=== PATIENT | female | born 1965 | race Caucasian/White ===

== ENCOUNTER 2017-12-14 12:53 | Emergency (ER) | payer MEDICAID, SELFPAY ==
[2017-12-14 12:53] VITALS: BP 160/95; PULSE 61; RESP 18; TEMP 36.6; O2SAT 100; BMI 36.8
[2017-12-14] MEDS: DiphenhydrAMINE 50 MG/ML Syringe 25 MG IV (13:58)
[2017-12-14] MEDS: Ketorolac 30 MG/ML Syringe IV (13:58)
[2017-12-14] MEDS: Metoclopramide 10 MG/2 ML Vial IV (13:58)
--- NOTE | 2017-12-14 14:56 | ED.VISSUMM ---
- ER Visit Summary Date of Service: 12/14/17 Chief Complaint: Unilateral headache intermittently for the past 4 months. Today she presents because of left eye visual disturbance. History of Present Illness: The patient is a 51 F who has history of hypertension, hypothyroidism and migraine headaches. She states this headache is been recurrent over the past 4 months. Today she presents because of blurred vision left eye associated with photophobia, sonophobia and left sided throbbing discomfort. She denies any paresthesia, anesthesia or motor weakness. She does complain of nausea without vomiting. She has no other complaints please read written note Physical Examination: Patient appears uncomfortable. Blood pressure is elevated 160/95. Head is atraumatic normocephalic. Pupils are equal round reactive. Extraocular muscles are intact. TMs are pearly white with landmarks noted. Nares patent with no drainage. Posterior pharynx without erythema or exudate. Uvula is midline. There is no dysphonia or dysphasia. Trachea is midline. There is no stridor with auscultation of the neck. Funduscopic exam reveals normal cup-to-disc ratio. There is no papilledema. Heart is regular without murmur, gallop or rub. S1 and S2 are normal. Lungs are clear to auscultation with good movement of air bilaterally. Abdomen is soft nontender. Patient is alert and oriented ?3. Motor is 5 over 5. Sensory is intact. DTRs are symmetric with no clonus or Babinski sign. Cranial 2 through 12 are intact. Cerebellar testing is normal. Test Results: None Emergency Department Course and Treatment: IV was established and she was treated with 25 mg of Benadryl IV push, 30 mg of Toradol IV push followed by 25 mg of Benadryl IV push. I was informed by her nurse at 1451 and that her headache is 95% improved. Her vision has normalized and she would like to go home. Treatment Plan: Follow-up with her primary care physician Dr. Torres. Disposition: Discharged home in stable and improved condition Impression: Intractable migraine with ocular migraine This note was generated with [employer] software. It may contain incorrect words, spelling, and punctuation that were not noted in review of the chart prior to signing ED Disposition - Plan for ED Patient: Disposition: Home or Assisted Living Chief Complaint: Headache Instructions: ED Headache Migraine Referrals: Kai Torres, [Primary Care Provider] - 3-5 Days if not improving
[2017-12-14 15:02] VITALS: BP 145/85
== END 2017-12-14 15:04 | disposition home or self-care (01) ==
PROVIDERS: Emergency Provider Emergency Medicine; Family Provider Student in an Organized Health Care Education/Training Program; PCP Student in an Organized Health Care Education/Training Program
DX: G43.819 Other migraine, intractable, without status migrainosus (principal); E66.9 Obesity, unspecified; I10 Essential (primary) hypertension; Z72.0 Tobacco use; E03.9 Hypothyroidism, unspecified
CPT/HCPCS: 99283; J7030

== ENCOUNTER 2020-04-27 03:18 | Emergency (ER) | payer MEDICAID, SELFPAY ==
[2020-04-27 03:18] VITALS: BP 195/110; PULSE 70; RESP 18; TEMP 36.9; O2SAT 100; BMI 32.1
--- NOTE | 2020-04-27 03:29 | ED.DCSUM_ITS ---
History of Present Illness Chief Complaint: Flank Pain Informant: Patient Narrative: Patient stated approximately 4 hours ago she developed acute onset of left lower back flank pain. Is a sharp stabbing pain. Somewhat movement related. No blood in her urine. No history of kidney stones. Waxes and wanes. Associated nausea. Tried ibuprofen with minimal relief. Does have history of chronic back pain but this appears worse than normal and not in this area. Denies . No injury. Past Medical History - Allergies and Home Meds Allergies/Adverse Reactions: Allergies cortisone Adverse Reaction (Verified 04/27/20 03:24) Unknown Primary Care Physician: Kai Torres DO [Primary Care Provider] - Prior records reviewed: Yes Past Medical History: - - Reviewed Surgical History: - - Reviewed Smoking Status: Never smoker Alcohol: None Drugs: None Review of Systems General: Denies: Chills, Fever, Sweats Eyes: Denies: Visual changes - bilaterally, Diplopia ENT: Denies: Rhinorrhea, Sore throat Cardiovascular: Denies: Chest pain, Palpitations Respiratory: Denies: Dyspnea, Cough, Dyspnea on exertion Gastrointestinal: Denies: Abdominal pain, Nausea, Vomiting, Diarrhea, Melena, Hematochezia Genitourinary: Denies: Dysuria, Hematuria, Frequency Musculoskeletal: Reports: Back pain. Denies: Extremity Pain Skin: Denies: Rash, Wounds Neurological: Denies: Headache, Weakness, Numbness Physical Exam Vital Signs/Narrative: Vital Signs Temp Pulse Resp BP Pulse Ox 04/27/20 03:18 98.5 F 70 18 195/110 H 100 General: Well nourished, Well developed, No Acute Distress Head: Normocephalic, Atraumatic Eyes: Perrl, EOMI ENT: Moist mucous membranes, No rhinorrhea Neck: Supple, Nontender Cardiovascular: Regular rate, Regular rhythm, No murmurs Respiratory: No distress, CTA bilaterally, Chest nontender Abdomen: Soft, Nontender, Nondistended, Normal bowel sounds Back: Nontender, Normal Inspection, - - Range of motion of the back secondary to pain left lower. No CVA tenderness.. Negative for: CVA tenderness, Spinal tenderness Extremities: Nontender, No edema Skin: Normal color, No rash Neurological: Alert, Oriented x3, Cranial nerves II-XII grossly intact, Normal Strength, Normal Sensation Psychological: Normal affect, Normal Mood Diagnostic/Tx/Re-eval - Medical Decision Making Given IV fluids morphine Toradol Zofran. Lab work and CT abdomen pelvis obtained. Lab work unremarkable including CBC BMP urinalysis. No evidence of infection. CT abdomen pelvis negative. At this time I feel the patient has musculoskeletal low back pain. She will rest and ice and use anti- inflammatories at home and follow-up as an outpatient. ED Disposition - Plan for ED Patient: Disposition: Home or Assisted Living Diagnosis: Low back pain Instructions: ED Back Pain (Acute or Chronic) Referrals: Kai Torres DO [Primary Care Provider] -
--- NOTE | 2020-04-27 03:29 | CT_ITS ---
STUDY: CT ABDOMEN AND PELVIS WITHOUT CONTRAST REASON FOR EXAM: Female, 54 years old. Left flank pain overnight. Hx cervical cancer, hysterectomy, cholecystectomy. RADIATION DOSAGE (If Supplied By Facility): CTDIvol = ( 14.23 ) mGy, DLP = ( 686.05 ) mGycm TECHNIQUE: Transaxial images were obtained from the dome of the diaphragm to the symphysis pubis without oral contrast, and without intravenous contrast. Sagittal and coronal images were reconstructed. Individualized dose optimization techniques were used for this CT. COMPARISON: None. FINDINGS: The visualized lung bases are unremarkable. The visualized portions of the heart are within normal limits. Normal liver. There are surgical clips in the gallbladder fossa consistent with a prior cholecystectomy. Normal spleen. Normal pancreas. Normal bilateral adrenal glands. Normal right kidney. Normal left kidney. Normal visualized stomach. Normal small intestine. Normal colon. There is non-visualization of the appendix. Normal abdominal aorta. Normal inferior vena cava. Normal retroperitoneum. Normal urinary bladder. Normal abdominal wall. Normal osseous structures. CT/Abdomen/Pelvis without Cont IMPRESSION: Normal unenhanced CT of the abdomen and pelvis. Electronically Signed: Denise Muñiz, at 4:37 EST Tel , Service support ,
[2020-04-27] MEDS: Ondansetron 4 MG/2 ML Vial IV (03:34)
[2020-04-27] MEDS: Morphine 4 MG/ML Syringe IV (03:34)
[2020-04-27] MEDS: Ketorolac 15 MG/ML Vial IV (03:34)
[2020-04-27] MEDS: 0.9% Normal Saline 1,000 ML 250 ML IV (03:35)
[2020-04-27 03:38] LABS: Absolute Lymphocyte Count 2.55 X10^3/uL (0.83-4.51); Absolute Neutrophil Count 4.8 X10^3/uL (2.0-7.7); Basophil# 0.06 X10^3/uL; Basophil% 0.7 % (0-1); Eosinophil# 0.36 X10^3/uL; Eosinophils% 4.1 % (0-5); Hematocrit 42.2 % (37-47); Hemoglobin 13.9 g/dL (12.0-15.0); Lymphocyte # 2.55 X10^3/ul (4.0); Lymphocyte % 29.3 % (19-41); Mean Corp Hgb Conc 32.9 g/dL (32-36); Mean Corpuscular Hgb 29.2 pg (27.0-32.0); Mean Corpuscular Volume 88.7 fL (81-99); Mean Platelet Vol. 9.7 fl (6.2-12.0); Monocyte% 10.3 % (0-10); NRBC Flagged by Analyzer 0 % (0-5); Neutrophil # 4.82 X10^3/uL (2.7-7.7); Neutrophil % 55.4 % (47-70); Platelet Count 341 K/mm3 (150-450); RBC Distribution Width CV 12.4 % (11.6-14.6); RBC Distribution Width SD 40.7 fl (35.1-43.9); Red Blood Count 4.76 M/mm3 (4.2-5.4); White Blood Count 8.7 K/mm3 (4.4-11.0)
[2020-04-27 03:48] LABS: Anion Gap 5 (5-15); BUN 16 mg/dL (7-18); BUN/Creat Ratio 17.1 RATIO (10-20); Calcium,Total 8.8 mg/dL (8.5-10.1); Chloride 106 mmol/L (98-107); Creatinine, Serum 0.93 mg/dL (0.55-1.02); EST Glomerular Filtration Rate 67 mL/min (>60); Est Glom Filt Rate - Afr Amer 81 mL/min (>60); Estimated Creatinine Clearance 52.79 ml/min; Glucose 108 mg/dL (74-106); Sodium Level 139 mmol/L (136-145)
[2020-04-27 04:31] LABS: Mucous, Urine 0 SEEN /hpf (<or=2+); Red Blood Cells-Urine 0 SEEN /hpf (0-5)
[2020-04-27 04:33] LABS: Color, Urine Yellow (Yellow); Glucose, Dipstick Normal (Normal); Ketone-Dipstick Negative (Negative); Leukocyte Esterase-Dipstick 100 /ul (Negative); Nitrite-Dipstick Negative (Negative); Occult Blood-Urine Negative /ul (Negative); Protein-Dipstick Negative (Negative); Specific Gravity, Urine 1.015 (1.002-1.030); Urine Bilirubin Dipstick Negative (Negative); Urine Clarity Clear (Clear); Urine Urobilinogen Normal (Normal)
[2020-04-27 04:40] LABS: Squamous Epithelial Cells - UA 0-5 SEEN /hpf (5-10); White Blood Cells 5-10 SEEN /hpf (0-5)
[2020-04-27 04:41] LABS: Bacteria RARE /hpf (None Seen); Hyaline Cast 0-5 SEEN /lpf (0-5)
[2020-04-27 04:53] VITALS: BP 152/78; PULSE 87; RESP 18; O2SAT 99
== END 2020-04-27 04:56 | disposition home or self-care (01) ==
PROVIDERS: Emergency Provider Emergency Medicine; PCP Student in an Organized Health Care Education/Training Program
DX: M54.5 Low back pain (principal); Z85.41 Personal history of malignant neoplasm of cervix uteri; Z90.49 Acquired absence of other specified parts of digestive tract; G89.29 Other chronic pain; R11.0 Nausea
CPT/HCPCS: 74176; 80048; 81001; 85025; 96361; 96374; 96375; 99283; J2405

== ENCOUNTER → 2020-07-13 22:05 | Emergency (ER) | payer MEDICAID, SELFPAY ==
[2020-07-13 22:06] VITALS: BP 166/103; PULSE 73; RESP 16; TEMP 36.7; O2SAT 99; BMI 32.1
--- NOTE | 2020-07-13 22:13 | ED.VIS.GEN ---
History of Present Illness Chief Complaint: Foreign Body Detail of Chief Complaint: Egg noodle causing obstruction esophagus Informant: Patient Onset: Today, Hours Context: Sudden Onset Timing: Intermittent Quality: Obstruction due to egg noodle Location: Pointed to epigastric area Current Severity: - - Resolved after vomiting 3-4 times Maximum Severity: Severe Worsened by: Inability to swallow secretions or liquids Relieved by: Vomiting Associated Symptoms: Discomfort in middle of chest Narrative: Patient is a 54-year-old woman with history of hiatal hernia. She has had an EGD and colonoscopy performed by Dr. Leonel Montoya. She states she has history of colitis. She denies fever or chills. She denies respiratory symptoms. She presently denies pain. She did not noted any blood or coffee grounds in her emesis. She denies black or maroon stool. She denies history of esophagitis, problems with esophageal motility or stenosis. Prior similar symptoms: Yes - Year ago Recent Illness/Hospitalization: No - Past Medical History (1) History of hiatal hernia Status: Acute Past Medical History - Allergies and Home Meds Allergies/Adverse Reactions: Allergies cortisone Adverse Reaction (Verified 07/13/20 22:06) Unknown Primary Care Physician: Kai Torres DO [Primary Care Provider] - Prior records reviewed: Yes Surgical History: - - Reviewed Lives: Alone Smoking Status: Never smoker Alcohol: Rare Drugs: None Review of Systems General: Denies: Chills, Fever, Malaise Cardiovascular: Reports: Chest pain. Denies: Palpitations, Heart racing Respiratory: Denies: Dyspnea, Cough, Dyspnea on exertion Gastrointestinal: Reports: Vomiting, Diarrhea - Chronic diarrhea. Denies: Melena, Hematochezia Musculoskeletal: Denies: Myalgias, Arthralgias, Neck pain, Back pain, Swelling, Extremity Pain Hematologic: Denies: Easy bruising, Easy bleeding Physical Exam Inital Vital Signs reviewed: Yes General: Well nourished, Well developed, Obese, No Acute Distress Head: Normocephalic, Atraumatic Eyes: Perrl, EOMI. Negative for: Pale conjunctiva, Scleral icterus ENT: Moist mucous membranes Cardiovascular: Regular rate, Regular rhythm Respiratory: No distress Skin: Normal color, No rash Neurological: Alert, Oriented x3, Cranial nerves II-XII grossly intact, Normal Strength, Normal Sensation Psychological: Normal affect, Normal Mood Diagnostic/Tx/Re-eval - Medical Decision Making Patient presently is able to drink a full glass of water. She is having no discomfort. She was instructed to contact Dr. Leonel Montoya for follow-up and possible EGD. ED Disposition - Plan for ED Patient: Disposition: Home or Assisted Living Diagnosis: Obstruction of esophagus due to food impaction Instructions: ED Esophageal Foreign Body, Resolved Referrals: Kai Torres DO [Primary Care Provider] - Leonel Montoya MD [STAFF PHYSICIAN] - 5-7 Days
== END | disposition home or self-care (01) ==
PROVIDERS: Emergency Provider Emergency Medicine; PCP Student in an Organized Health Care Education/Training Program
DX: K22.2 Esophageal obstruction (principal); E66.9 Obesity, unspecified; Z87.19 Personal history of other diseases of the digestive system
CPT/HCPCS: 99282

== ENCOUNTER 2022-03-07 17:12 | Emergency (ER) | payer MEDICAID, SELFPAY ==
[2022-03-07 17:14] VITALS: BP 164/78; PULSE 78; RESP 16; TEMP 36.9; O2SAT 99; BMI 32.1
--- NOTE | 2022-03-07 17:42 | RAD_ITS ---
STUDY: XR Knee Complete 4 Views or More 03/07/2022 5:55 PM REASON FOR EXAM: Female, 56 years old. Injury/Pain TECHNIQUE: XR Knee Complete 4 Views or More LEFT COMPARISON: None FINDINGS: Normal visualized distal femur. Normal visualized proximal tibia and fibula. Normal proximal tibiofibular articulation. There is moderate degenerative arthrosis of the medial femorotibial compartment with moderate joint space narrowing. There is mild degenerative arthrosis of the lateral femorotibial compartment. There is mild degenerative arthrosis of the patellofemoral articulation. The soft tissue structures are unremarkable. RAD/Knee 4 or More Views IMPRESSION: Degenerative arthrosis. Electronically Signed: Bernabe Willis MD at 17:56 EST ,
--- NOTE | 2022-03-07 18:46 | EDS_ITS ---
HPI History of Present Illness HPI Narrative: Patient presents with left knee pain that began yesterday. Patient states she slipped on an icy floor. Patient states it twisted and she felt a pop. Patient states her pain is sharp, aching, and burning. Patient states it is worse with ambulation. Patient denies any paresthesias or weakness. Patient denies any fall. Patient denies any head injury or loss of consciousness. Patient denies any other injuries. Chief Complaint: Lower Extremity Injury Informant: patient Occured/Mechanism Comment: Slipped and twisted left knee Onset/Context/Timing Onset: Yesterday Context: Sudden Onset Timing: Continuous Quality of Pain: Sharp, Aching and Burning Location: Left knee Associated Symptoms Associated Symptoms: Negative for Parasthesia, Weakness or Loss of Funtion [facility] Medical History (Updated 03/07/22 @ 18:[address] Julian Figueroa DO) Hypertension Hypothyroidism Home Medications lisinopril 10 mg tablet 10 mg PO DAILY 04/24/16 [History Last Taken 04/24/16] bupropion HCl 300 mg 24 hr tablet, extended release 300 mg PO DAILY 07/13/20 [History Last Taken Unknown] diclofenac sodium 75 mg tablet,delayed release 75 mg PO BID 07/13/20 [History Last Taken Unknown] ergocalciferol (vitamin D2) 1,250 mcg (50,000 unit) capsule 50,000 unit PO Q7D 07/13/20 [History Last Taken Unknown] fluoxetine 40 mg capsule 40 mg PO DAILY 07/13/20 [History Last Taken Unknown] levothyroxine 150 mcg tablet 150 mcg PO DAILY 07/13/20 [History Last Taken Unknown] losartan 50 mg tablet 50 mg PO DAILY 07/13/20 [History Last Taken Unknown] simvastatin 80 mg tablet 80 mg PO QHS 07/13/20 [History Last Taken Unknown] vitamin B complex 1 each PO DAILY 07/13/20 [History Last Taken Unknown] Allergy/AdvReac Type Severity Reaction Status Date / Time cortisone AdvReac Unknown Verified 03/07/22 17:13 Surgical History (Updated 03/07/22 @ 18:[address] Julian Figueroa DO) History of hysterectomy Hx of cholecystectomy Social History Smoking Status: Never smoker ROS ROS ED Constitutional Constitutional ED: Reports chills and subjective; Denies fever(s) Eyes Eyes: Denies blurry vision or change in vision ENT ENT ED: Denies rhinorrhea or sore throat Cardiovascular Cardiovascular: Denies chest pain or palpitations Respiratory/Chest Respiratory/Chest: Denies cough or dyspnea Gastrointestinal Gastrointestinal: Denies nausea or vomiting Genitourinary Genitourinary ED: Denies dysuria or hematuria Musculoskeletal Musculoskeletal: Denies back pain or neck pain Integumentary Denies abscess or rash Neurologic Neurologic: Denies headache(s) or weakness Allergic/Immunologic Allergic/Immunologic ED: Denies mouth swelling or urticaria EXAM Physical Exam Const Vital Signs: 03/07/22 17:14 Temperature 98.4 F Temperature Source Temporal Pulse Rate 78 Respiratory Rate 16 Blood Pressure 164/78 H Blood Pressure Mean 106 Pulse Ox 99 Oxygen Delivery Method Room Air Positive well nourished and well developed General Appearance ED: well developed and NAD HEENT Reports moist mucous membranes Neck full ROM Extremity Extremity Narrative: There is tenderness and effusion to the left knee. There is no ecchymosis. There is no deformity noted. Range of motion was limited in flexion extension of the left knee secondary to pain. Strength is 5/5 bilaterally in the lower extremities. Extensor mechanism is intact. Sensation was intact to light touch bilaterally in the lower extremities. Neuro oriented x3, CN's II-XII intact bilaterally, moves all extremities and no sensory deficits noted Sensorium / Orientation: alert Motor Exam: strength 5/5 throughout Psych mental status grossly normal MDM MDM MDM Narrative Medical decision making narrative: X-rays of the left knee were obtained. There are 4 views. On my interpretation, there is no acute fracture. There is no dislocation. There is some mild soft tissue swelling. There is a mild effusion. There is some degenerative changes noted. Radiologist also interpreted the x-rays and agrees. Patient was advised of her findings. Patient was advised that this is most likely something in the soft tissues. Patient was instructed to follow-up with her primary care physician in 5 to 7 days. Patient understood and was agreeable with the plan. All questions were answered. Radiography Diagnostic Testing: Clinical Impression(s) from Imaging Studies Knee X-Ray 03/07/22 17:42 IMPRESSION: Degenerative arthrosis. Electronically Signed: Bernabe Willis MD at 17:56 EST , Discharge Plan Triage Chief Complaint: Lower Extremity Injury ED Provider: Julian Figueroa Dx/Rx/DC Orders Clinical Impression: Left knee sprain Instructions: ED Knee Sprain Prescriptions: No Action lisinopril 10 MG tablet 10 mg PO DAILY losartan 50 MG tablet 50 mg PO DAILY fluoxetine 40 MG capsule 40 mg PO DAILY simvastatin 80 MG tablet 80 mg PO QHS levothyroxine 150 MCG tablet 150 mcg PO DAILY diclofenac sodium 75 MG tablet 75 mg PO BID ergocalciferol (vitamin D2) 50,000 UNIT capsule 50,000 unit PO Q7D vitamin B complex 1 EACH capsule 1 each PO DAILY bupropion HCl 300 MG tablet extended release 24 hr 300 mg PO DAILY Primary Care Provider: Kai Torres Referrals: Kai Torres DO [Primary Care Provider] - 5-7 Days Disposition Disposition: Home, Self Care
== END 2022-03-07 19:26 | disposition home or self-care (01) ==
PROVIDERS: Emergency Provider Emergency Medicine; PCP Student in an Organized Health Care Education/Training Program; Visit Provider Emergency Medicine
DX: S83.92XA Sprain of unspecified site of left knee, initial encounter (principal); I10 Essential (primary) hypertension; W00.0XXA Fall on same level due to ice and snow, initial encounter; E03.9 Hypothyroidism, unspecified
CPT/HCPCS: 73564; 99282

== ENCOUNTER 2022-11-08 18:14 | Emergency (ER) | payer MEDICAID, SELFPAY ==
[2022-11-08 18:15] VITALS: BP 149/80; PULSE 85; RESP 18; TEMP 36.4; O2SAT 99; BMI 31.4
--- NOTE | 2022-11-08 20:49 | EDS_ITS ---
HPI History of Present Illness Chief Complaint: Laceration Narrative Narrative: He was [id number] female past medical history of hypertension presents with injury to her left index finger that she sustained prior to arrival by a few hours to clean up a broken window. She states that one of her other granddaughters had thrown something at the window and it broke. When she was trying to remove some of the pieces of glass, she sustained a laceration to the volar aspect of her left middle finger pad. She states her tetanus immunization is up-to-date, but she presents mainly because it would not stop bleeding. It is very sore under the skin that was almost completely avulsed. She denies other injury. She is right-hand dominant. [facility] Medical History Hypertension Hypothyroidism Home Medications lisinopril 10 mg tablet 10 mg PO DAILY 04/24/16 [History Last Taken 04/24/16] diclofenac sodium 75 mg tablet,delayed release 75 mg PO BID 07/13/20 [History Last Taken Unknown] ergocalciferol (vitamin D2) 1,250 mcg (50,000 unit) capsule 50,000 unit PO Q7D 07/13/20 [History Last Taken Unknown] fluoxetine 40 mg capsule 40 mg PO DAILY 07/13/20 [History Last Taken Unknown] levothyroxine 150 mcg tablet 150 mcg PO DAILY 07/13/20 [History Last Taken 11/08/22] losartan 50 mg tablet 50 mg PO DAILY 07/13/20 [History Last Taken Unknown] simvastatin 80 mg tablet 80 mg PO QHS 07/13/20 [History Last Taken Unknown] vitamin B complex 1 each PO DAILY 07/13/20 [History Last Taken Unknown] Allergy/AdvReac Type Severity Reaction Status Date / Time cortisone AdvReac Unknown Verified 11/08/22 18:16 Surgical History History of hysterectomy Hx of cholecystectomy Social History Smoking Status: Never smoker ROS ROS ED ROS Narrative Constitutional: No fever, no chills. HEENT: No sore throat. No neck pain. No loss of vision. No rhinorrhea. Cardiovascular: No chest pain. No palpitations. No pedal edema. Respiratory: No cough, no shortness of breath. Abdominal: No abdominal pain. No nausea. No vomiting. Genitourinary: No dysuria. No hematuria. Musculoskeletal: No myalgias. No arthralgias. Neurologic: No headaches. No dizziness. No lightheadedness. Skin: No rash. No change in color. Positive laceration to left middle finger distal pad. Psychiatric: No depression. No anxiety. EXAM Physical Exam Narrative Exam Narrative: Afebrile. Vital signs noted. HEENT: Normocephalic. Atraumatic. PERRL, EOMI. Neck soft and supple. No point tenderness or step off. Cardiovascular: Regular rate and rhythm. No murmurs, rubs, or gallops appreciated. Respiratory: No tachypnea. Lungs clear to auscultation bilaterally. Gastrointestinal: Abdomen soft, nontender, with normoactive bowel sounds. No rebound or guarding. Neurological: Awake. Alert. Nonfocal, nonlateralizing. Skin: No rash. Normal color. There is an almost complete avulsion of the skin on the finger pad of the left middle finger. The flap of skin is approximately 1 cm in diameter. It is pale. It appears that she may have cut off the blood supply to this flap of skin. Musculoskeletal: No pedal edema. Full range of motion extremities. Const Vital Signs: 11/08/22 18:15 Temperature 97.6 F L Temperature Source Temporal Pulse Rate 85 Respiratory Rate 18 Blood Pressure 149/80 H Blood Pressure Mean 103 Pulse Ox 99 Oxygen Delivery Method Room Air MDM MDM MDM Narrative Medical decision making narrative: Patient was told of the risk of infection and scarring and acknowledges an understanding. She was also told that given that it looks as if there is no real blood supply to the skin flap, that the best alternative would be to numb the area, cleansed the area, and tacked down the skin pad until her incision heals. It would serve more as protection of the underlying structures. She acknowledges an understanding that the tissue on her finger pad may turn black and fall off. Hence, I will only tacked down this area with a few sutures. Procedure note: Lidocaine 1% was used as a local anesthesia. The area was cleansed underneath the skin flap with chlorhexidine and normal saline. There is no evidence of bone exposure. There is no blood supply noted to the flap laceration of the skin. As stated previously, will be used to cover the avulsion laceration. 3 sutures using five-point 0 nylon were used to tack down the skin flap. Patient tolerated the procedure well. As stated above, I do not feel that there is good supply of blood to the flap covering the laceration. She was told that this area could but this will allow coverage to allow the finger to heal and create granulation tissue. She was told that she may have permanent discoloration and scarring of the skin in that area along with deformity and she acknowledges an understanding. Vaseline gauze dressing was used then dry sterile dressing. I feel she be discharged safely home with follow-up, and she will take [id number] medications. She was advised to have her wound checked in 2 days by her primary care provider and have the sutures removed in 7 to 10 days. Return instructions to the emergency department were reviewed. Disposition is discharged home in stable condition. Discharge Plan Triage Chief Complaint: Laceration ED Provider: Amos Winkler Dx/Rx/DC Orders Clinical Impression: Avulsion of skin of finger, Finger laceration Instructions: ED Skin Avulsion, ED Laceration Hand with ... Prescriptions: No Action lisinopril 10 MG tablet 10 mg PO DAILY losartan 50 MG tablet 50 mg PO DAILY fluoxetine 40 MG capsule 40 mg PO DAILY simvastatin 80 MG tablet 80 mg PO QHS levothyroxine 150 MCG tablet 150 mcg PO DAILY diclofenac sodium 75 MG tablet 75 mg PO BID ergocalciferol (vitamin D2) 50,000 UNIT capsule 50,000 unit PO Q7D vitamin B complex 1 EACH capsule 1 each PO DAILY Primary Care Provider: Kai Torres Referrals: Kai Torres DO [Primary Care Provider] - 7 Days for suture removal Activity Restrictions/Additional Instructions: Your avulsion laceration does not have good blood supply. The skin edges or the entire area may turn black. Have the wound checked in 2 days by your primary care physician. Leave sutures in place for 7 to 10 days. Return with signs of infection include drainage of pus from the wound, redness, fever, increased pain. Disposition Disposition: Home, Self Care
[2022-11-08] MEDS: Lidocaine 1% (20 ml mdv) 20 ML Vial INFILT (21:47)
[2022-11-08 21:48] VITALS: PULSE 88; RESP 16; TEMP 36.7
== END 2022-11-08 21:58 | disposition home or self-care (01) ==
PROVIDERS: Emergency Provider Emergency Medicine; PCP Student in an Organized Health Care Education/Training Program; Visit Provider Emergency Medicine
DX: S61.213A Laceration without foreign body of left middle finger without damage to nail, initial encounter (principal); W25.XXXA Contact with sharp glass, initial encounter; I10 Essential (primary) hypertension; E03.9 Hypothyroidism, unspecified; Z79.899 Other long term (current) drug therapy; Z90.710 Acquired absence of both cervix and uterus; Z90.49 Acquired absence of other specified parts of digestive tract
CPT/HCPCS: 12001; 99284

== ENCOUNTER 2023-04-24 20:47 | Emergency (ER) | payer MEDICAID, SELFPAY ==
[2023-04-24 20:48] VITALS: BP 142/95; PULSE 64; RESP 16; TEMP 36.6; O2SAT 100; BMI 29.0
--- NOTE | 2023-04-24 21:19 | EDS_ITS ---
HPI History of Present Illness Chief Complaint: Nausea/Vomiting Informant: patient Narrative Narrative: 57-year-old female presenting to the emergency room with a chief complaint of vomiting diarrhea. Patient states symptoms began 2 evenings ago. It has been very constant. She notes some persistent nausea with lightheadedness/dizziness. No reported fevers. No cough or rhinorrhea. She states that she did not take her medications yesterday because she was not really eating or drinking but did take them today. No syncope. No one else at home sick. [facility] Medical History Hypertension Hypothyroidism Home Medications diclofenac sodium 75 mg tablet,delayed release 75 mg PO BID 07/13/20 [History Last Taken Unknown] ergocalciferol (vitamin D2) 1,250 mcg (50,000 unit) capsule 50,000 unit PO Q7D 07/13/20 [History Last Taken Unknown] levothyroxine 150 mcg tablet 150 mcg PO DAILY 07/13/20 [History Last Taken 11/08/22] losartan 50 mg tablet 50 mg PO DAILY 07/13/20 [History Last Taken Unknown] simvastatin 80 mg tablet 80 mg PO QHS 07/13/20 [History Last Taken Unknown] vitamin B complex 1 each PO DAILY 07/13/20 [History Last Taken Unknown] acyclovir 400 mg tablet 400 mg PO Q12H 04/24/23 [History Last Taken Unknown] ondansetron 4 mg disintegrating tablet 4 mg PO Q6H PRN PRN Nausea #15 tabs 04/24/23 [Rx Last Taken Unknown] vortioxetine 10 mg tablet (Trintellix) 10 mg PO DAILY 04/24/23 [History Last Taken Unknown] Allergy/AdvReac Type Severity Reaction Status Date / Time cortisone AdvReac Unknown Verified 11/08/22 18:16 Surgical History History of hysterectomy Hx of cholecystectomy Social History Smoking Status: Never smoker ROS ROS ED ROS Narrative Dizziness/lightheadedness Constitutional Constitutional ED: Denies chills, fever(s) or weight loss Eyes Eyes: Denies change in vision or diplopia ENT ENT ED: Denies ear pain, rhinorrhea or sore throat Cardiovascular Cardiovascular: Denies chest pain, orthopnea, palpitations or racing heartbeat Respiratory/Chest Respiratory/Chest: Denies cough, dyspnea or orthopnea Gastrointestinal Gastrointestinal: Reports diarrhea, nausea and vomiting; Denies abdominal pain Genitourinary Genitourinary ED: Denies dysuria, hematuria or urinary frequency Musculoskeletal Musculoskeletal: Denies arthralgias or myalgias Integumentary Denies abscess or rash Neurologic Neurologic: Denies headache(s) or weakness Psychiatric Psychiatric: Denies anxiety, depression, suicidal ideation or suicidal thoughts Endocrine Endocrinology: Denies polydipsia, polyphagia or polyuria Allergic/Immunologic Allergic/Immunologic ED: Denies mouth swelling, tongue swelling or urticaria EXAM Physical Exam Const Vital Signs: 04/24/23 20:48 Temperature 97.8 F Temperature Source Oral Pulse Rate 64 Respiratory Rate 16 Blood Pressure 142/95 H Blood Pressure Mean 110 Pulse Ox 100 Oxygen Delivery Method Room Air Positive well nourished and well developed General Appearance ED: well developed HEENT Reports normocephalic, head/scalp atraumatic and moist mucous membranes Eyes PERRL and EOMs intact bilaterally Neck no lymphadenopathy, supple and no JVD Resp normal respiratory effort and clear to auscultation bilaterally Cardio regular rate, regular rhythm and no murmurs GI normal to inspection, nondistended, normoactive bowel sounds and non-tender Palpation: soft Back/Spine no CVA tenderness and normal ROM Extremity normal to inspection General Extremety ED: Negative for edema General Extremity: Negative for edema Neuro oriented x3 and CN's II-XII intact bilaterally Sensorium / Orientation: alert Motor Exam: strength 5/5 throughout Psych mental status grossly normal Mood & Affect: Negative for depressed or tearful Skin no rashes or lesions noted and no wounds MDM MDM MDM Narrative Medical decision making narrative: Basic blood work was obtained showed a white count 10.2. No lites BUN/creatinine liver panel. Urine shows no overt red noted 5-10 white cells but no nitrates no bacteria. Patient received 2 L of IV fluid bolus symptoms of pain. I believe the patient have a viral gastroenteritis. Will treat symptomatically with some Zofran plus or minus Imodium continued oral hydration return if worsening or concerns History & Record Review Discussion w/independent historian: Patient Lab Data Attestation: I reviewed the patient's lab results. Labs: Laboratory Results - last 24 hr 04/24/23 04/24/23 22:20 22:32 WBC 10.2 RBC 5.06 Hgb 14.3 Hct 43.8 MCV 86.6 MCH 28.3 MCHC 32.6 RDW Std Deviation 40.8 RDW Coeff of Khoi 13.0 Plt Count 370 MPV 9.4 Immature Gran % (Auto) 0.300 Neut % (Auto) 70.1 H Lymph % (Auto) 18.9 L [place] % (Auto) 8.6 Eos % (Auto) 1.5 Baso % (Auto) 0.6 Absolute Neuts (auto) 7.2 Absolute Lymphs (auto) 1.93 Nucleated RBC % 0 Sodium 139 Potassium 3.6 Chloride 107 Carbon Dioxide 27.0 Anion Gap 5 BUN 18 Creatinine 0.96 Estim Creat Clear Calc 49.38 Est GFR (MDRD) Af Amer 77 Est GFR (MDRD) Non-Af 63 BUN/Creatinine Ratio 18.7 Glucose 94 Hemoglobin A1c 5.5 Calcium 9.7 Total Bilirubin 0.30 AST 18 ALT 17 Alkaline Phosphatase 88 Total Protein 7.5 Albumin 3.3 Globulin 4.2 Albumin/Globulin Ratio 0.8 L Urine Color Yellow Urine Clarity Clear Urine pH 6.0 Ur Specific [place] 1.015 Urine Protein Negative Urine Glucose (UA) Normal Urine Ketones Negative Urine Occult Blood Negative Urine Nitrite Negative Urine Bilirubin Negative Urine Urobilinogen Normal Ur Leukocyte Esterase 100 H Urine RBC 0 SEEN Urine WBC 5-10 SEEN Ur Squamous Epith Cells 0-5 SEEN Urine Bacteria RARE Urine Mucus 0 SEEN Discharge Plan Triage Chief Complaint: Nausea/Vomiting ED Provider: Darell Leal Dx/Rx/DC Orders Clinical Impression: Acute dehydration, Gastroenteritis Instructions: ED Gastroenteritis, Viral (Adult) Prescriptions: New ondansetron [ondansetron] 4 mg tablet,disintegrating 4 mg PO Q6H PRN PRN (Reason: Nausea) Qty: 15 0RF No Action losartan 50 MG tablet 50 mg PO DAILY simvastatin 80 MG tablet 80 mg PO QHS levothyroxine 150 MCG tablet 150 mcg PO DAILY diclofenac sodium 75 MG tablet 75 mg PO BID ergocalciferol (vitamin D2) 50,000 UNIT capsule 50,000 unit PO Q7D vitamin B complex 1 EACH capsule 1 each PO DAILY acyclovir 400 mg tablet 400 mg PO Q12H Trintellix 10 mg tablet 10 mg PO DAILY Primary Care Provider: Kai Torres Referrals: Kai Torres DO [Primary Care Provider] - As Needed Disposition Disposition: Home, Self Care
--- OUTSIDE RECORDS SUMMARY | 2023-04-24 21:19 | XMS RPT_ITS | CCD ---
Author Name Unknown Address [id number] [place] [address] Organization [facility] Care Team Providers Care Test Specialist Name Role Phone Kai Dasilva DO Primary Care Provider [phone] KAI DASILVA Primary Care Unavailable KAI DASILVA Referring Unavailable KAI DASILVA Primary Care Unavailable KAI DASILVA Referring Unavailable KAI DASILVA Primary Care Unavailable KAI DASILVA Attending Unavailable KAI DASILVA Primary Care Unavailable KAI DASILVA Primary Care Unavailable IMELDA ELIZALDE Attending Unavailable KAI DASILVA Primary Care Unavailable IMELDA ELIZALDE Attending Unavailable IMELDA ELIZALDE Referring Unavailable KAI DASILVA Primary Care Unavailable SAMANTHA LOPEZ Referring Unavailable KAI DASILVA Primary Care Unavailable SAMANTHA GANNON Attending Unavailable KAI DASILVA Primary Care Unavailable IMELDA ELIZALDE Attending Unavailable KAI DASILVA Primary Care Unavailable KAI DASILVA Primary Care Unavailable SAMANTHA LOPEZ Attending Unavailable KAI DASILVA Primary Care Unavailable SARIAH SNELL Attending Unavailable Allergies Allergy Classification Reported Allergen(s) Allergy Type Date of Onset Reaction(s) Facility (13 sources) Cortisone; Translations: [CORTISONE] Drug Allergy 03-07-2022 Unknown [facility] Medications Current Medications Medication Drug Class(es) Dates Sig (Normalized) Sig (Original) acyclovir 400 mg oral tablet (20 sources) Herpesvirus Nucleoside Analog DNA Polymerase Inhibitor, Herpes Simplex Virus Nucleoside Analog DNA Polymerase Inhibitor, Herpes Zoster Virus Nucleoside Analog DNA Polymerase Inhibitor Start: 11-23-2022 End: 01-07-2024 take 1 tablet by mouth twice daily acyclovir (ZOVIRAX) 400 mg tablet Take 1 tablet by mouth twice daily. 180 tablet 3 01/07/2023 01/07/2024 Active Completed/Discontinued Medications Medication Drug Class(es) Dates Sig (Normalized) Sig (Original) benzonatate 100 mg oral capsule (20 sources) Non-narcotic Antitussive Start: 01-07-2023 take 1 capsule by mouth every eight hours as needed benzonatate (TESSALON PERLES) 100 mg capsule Take 1 capsule by mouth three times daily as needed for cough. 21 capsule 0 01/07/2023 Active Problems Active Problems Problem Classification Problem Date Documented Da te Episodic/Chronic Adjustment disorders (20 sources) Adjustment disorder with mixed anxiety and depressed mood; Translations: [Adjustment disorder with mixed anxiety and depressed mood] Onset: 9 03-26-2009 Chronic Disorders of lipid metabolism (20 sources) Mixed hyperlipidemia; Translations: [Mixed hyperlipidemia] Onset: 5 02-11-2021 Chronic Esophageal disorders (20 sources) Gastroesophageal reflux disease; Translations: [Gastro-esophageal reflux disease without esophagitis] Onset: 3 12-06-2012 Chronic Essential hypertension (20 sources) Essential hypertension; Translations: [Essential (primary) hypertension] Onset: 5 02-26-2015 Chronic Genitourinary symptoms and ill-defined conditions (1 source) Dysuria; Translations: [Painful micturition, unspecified] 12-03-2022 Episodic Headache; including migraine (20 sources) Chronic intractable migraine without aura; Translations: [Chronic migraine without aura, intractable, without status migrainosus] Onset: 5 10-31-2014 Chronic Immunizations and screening for infectious disease (6 sources) Patient encounter status; Translations: [Encounter for screening for human papillomavirus (HPV)] Episodic Menopausal disorders (20 sources) Atrophic vaginitis; Translations: [Postmenopausal atrophic vaginitis] Onset: 4 06-29-2013 Chronic Mood disorders (2 sources) Moderate major depression, single episode; Translations: [Major depressive disorder, single episode, moderate] Chronic Nutritional deficiencies (20 sources) Vitamin D deficiency; Translations: [Vitamin D deficiency, unspecified] Onset: 5 02-26-2015 Chronic Open wounds of extremities (1 source) Laceration of left index finger; Translations: [Laceration without foreign body of left index finger without damage to nail, subsequent encounter] 11-16-2022 Episodic Osteoarthritis (3 sources) Primary gonarthrosis, bilateral; Translations: [Bilateral primary osteoarthritis of knee] Chronic Other aftercare (1 source) Removal of sutures done; Translations: [Encounter for removal of sutures] 11-16-2022 Episodic Other connective tissue disease (1 source) Pain of left upper arm; Translations: [Pain in left upper arm] 03-15-2023 Episodic Other connective tissue disease (1 source) Pain in left upper arm; Translations: [Left upper arm pain] Onset: 3 Episodic Other female genital disorders (1 source) History of dysplasia of cervix; Translations: [Personal history of cervical dysplasia] 12-03-2022 Episodic Other gastrointestinal disorders (1 source) Functional diarrhea; Translations: [Functional diarrhea] Episodic Other lower respiratory disease (5 sources) Dyspnea; Translations: [Shortness of breath] Episodic Other nervous system disorders (20 sources) Ulnar neuropathy of right arm; Translations: [Lesion of ulnar nerve, right upper limb] Onset: 5 12-24-2014 Chronic Other nervous system disorders (20 sources) Carpal tunnel syndrome of right wrist; Translations: [Carpal tunnel syndrome, right upper limb] Onset: 5 12-24-2014 Chronic Other nervous system disorders (1 source) Other chronic pain; Translations: [Chronic pain of right ankle] Onset: Start: 08-13-2021 Radiologic exam ches t 2 views Kai Demarco Dasilva DO Work Phone: Start: 08-13-2021 Brncdilat rspse spmt ry pre&post-brncdilat admn Kai Demarco Dasilva DO Work Phone: Start: 02-10-2021 Adult depression scr eening assessment Kai Dasilva DO Work Phone: Start: 02-10-2021 Lipid 1996 panel - S [place] or Plasma Kai Dasilva DO Work Phone: Start: 12-24-2020 Mammography Kai Gar rison DO Work Phone: Start: 02-15-2018 Colonoscopy Kai Gar rison DO Work Phone: Plan of Treatment Date Care Activity Detail Author Start: 04-14-2031 Urine microalbumin profile [facility] Start: 02-16-2028 Colonoscopy COLONOSCOPY [facility] Start: 02-16-2028 COLORECTAL CANCER SCREENING COLORECTAL CANCER SCREENING [facility] Start: 02-10-2026 Lipid 1996 panel - S [place]hel or Plasma Lipid Screening [facility] Start: 02-10-2026 LIPID SCREEN LIPID SCREEN [facility] Start: 10-14-2025 DIABETES SCREEN DIABETES SCREEN [facility] Start: 10-14-2025 Diabetes Screening Diabetes Screenin g [facility] Start: 02-03-2025 DIABETES SCREEN DIABETES SCREEN [facility] Start: 12-15-2024 DIABETES SCREEN DIABETES SCREEN [facility] Start: 04-14-2024 DIABETES SCREEN DIABETES SCREEN [facility] Start: 01-20-2024 Mammography Mammogram Screening [facility] Start: 01-05-2024 Annual PCP Team Call Or Contact Centre Team Leader mamie Disease Visit Annual PCP Team Chronic Disease Visit [facility] Start: 01-05-2024 BP Controlled (<130/80) BP Controlle d (<130/80) [facility] Start: 01-05-2024 Shingrix Vaccine (1 of 2) [place] grix Vaccine (1 of 2) [facility] Immunizations Immunization Date Immunization Notes Care Provider [place] 04-14-2021 tetanus toxoid, redu william diphtheria toxoid, and acellular pertussis vaccine, adsorbed Kai Dasilva DO Work Phone: [facility] Work Phone: 02-21-2018 influenza virus vaccine, unspecified formulation Kai Dasilva DO Work Phone: [facility] 04-13-2011 tetanus toxoid, redu william diphtheria toxoid, and acellular pertussis vaccine, adsorbed Kai Dasilva DO Work Phone: [facility] Work Phone: Payers Date Payer Category Payer Medicaid [id number] 2013 Medicaid [employer] [id number] 2013-Present [phone] [address] [place] [address] Medicaid [id number] 2013 Medicaid [id number] 2013 Medicaid [id number] Social History Date Type Detail Facility Start: 12-02-2021 Tobacco smoking stat us SDIS Never smoked tobacco [facility] Work Phone: Start: 07-14-2021 End: 01-07-2023 Alcohol intake Current non-drinker of alcohol (finding) [facility] Start: 1965 Sex Assigned At Not on file [facility] Start: 07-04-2021 End: 01-05-2022 Exposure to SARS-CoV-2 (event) Not sure [facility] Work Phone: Start: 12-02-2021 Tobacco use and exposure Smokeless tobacco non-user [facility] Start: 02-03-2022 End: 09-30-2022 History of Social function [facility] Start: 02-03-2022 End: 09-30-2022 Tobacco use panel [facility] Adult Depression Screening Assessment 6 [facility] Clinical Notes 04-28-2010 to 04-08-2023 Telephone Encounter - Stephani Grissom RN - 03/25/2023 11:47 AM ESTTelephone Encounter - Imelda Elizalde APRN.CNP - 03/19/2023 2:40 PM Gael Garner MD - 03/15/2023 2:45 PM EST Note Date & Type Note Facility 04-08-2023 Note HNO ID: [id number] Author: Imelda Elizalde APRN.CNP Service: ? Author Type: Nurse Practitioner Type: Progress Notes Filed: 04/08/2023 8:33 AM Note Text: Chief Complaint Patient presents with: Weight Check HPI Manuelito Gordon is a 57 year old female who presents here today for Above Complaints. Beginning weight 09/30/2022: 175 pounds, BMI 33.1 Weight 01/04/2023: 160 pounds, BMI 29.74 Weight today 04/08/2023: 159 pounds, BMI 29.67 Today: Diet-cutting back on portions and junk food, no longer eating at nighttime Exercise-walks a lot at work, running after 3 grandkids Tolerating Adipex well Overall feels good, like her body is light More energy, can do more Past medical history, appointments, medications, allergies reviewed. Previous Medical History PAST MEDICAL HISTORY Diagnosis Date ABDOMINAL PAIN EPIGASTRIC 07/24/2008 Abdominal pain, unspecified site Abnormal glandular Papanicolaou smear of cervix 2007 Abn. Pap smear (cervix) Anxiety and depression Atrophic vaginitis 06/29/2013 Cancer (HCC) Chronic daily headache Diaphragmatic hernia without mention of obstruction or gangrene Diarrhea Esophagitis, unspecified Genital herpes High blood pressure High cholesterol Low back pain Multiple thyroid nodules ANTOLIN (obstructive sleep apnea) 2011 does not wear CPAP Osteopenia 2011 Other and unspecified noninfectious gastroenteritis and colitis(558.9) Pure hypercholesterolemia Sleep-disordered breathing Snoring Unspecified essential hypertension Previous Surgical History PAST SURGICAL HISTORY Procedure Laterality Date DELIVERY ONLY , low cervical DELIVERY ONLY , low cervical COLONOSCOPY FLX DX W/COLLJ SPEC WHEN PFRMD 07/06/2017 Colonoscopy COLONOSCOPY FLX DX W/COLLJ SPEC WHEN PFRMD 02/15/2018 Colonoscopy COLONOSCOPY W/BIOPSY SINGLE/MULTIPLE 02/26/2005 Raz - normal - biopsies normal COLONOSCOPY W/BIOPSY SINGLE/MULTIPLE 09/24/2006 NORMAL CECUM, SMALL POLYP RECTUM - HYPERPLASTIC APPEARING COLONOSCOPY W/BIOPSY SINGLE/MULTIPLE 12/30/2007 Normal visualized colon EGD 08/06/2020 EGD TRANSORAL BIOPSY SINGLE/MULTIPLE 09/24/2006 SMALL HIATAL HERNIA, MINIMAL GASTRITIS EGD TRANSORAL BIOPSY SINGLE/MULTIPLE 08/09/2008 mild duodenitis, esophagitis, small hiatal hernia EGD TRANSORAL BIOPSY SINGLE/MULTIPLE 04/28/2010 mild gastritis, esophagitis EGD TRANSORAL BIOPSY SINGLE/MULTIPLE 12/15/2016 gastritis, reflux esophagitis ESOPHAGOGASTRODUODENOSCOPY TRANSORAL DIAGNOSTIC 02/15/2018 EGD EYE SURGERY HX LAPAROSCOPY SURG CHOLECYSTECTOMY 06/02/2005 Cholecystectomy, lap LIG/TRNSXJ FLP TUBE ABDL/VAG APPR UNI/BI Tubal ligation NEUROPLASTY AND/TRANSPOS MEDIAN NRV CARPAL TUNNE Right 03/08/2015 Right CTR NEUROPLASTY AND/TRANSPOSITION ULNAR NERVE ELBOW Right 03/08/2015 Ulnar nerve decompression TOTAL ABDOMINAL HYSTERECT W/WO RMVL TUBE OVARY 2001 Hysterectomy, JC, left oophorectomy Family History FAMILY HISTORY Problem Relation Age of Onset Cancer Mother RENAL CANCER Arthritis Mother Heart Father Heart Maternal Grandmother Diabetes Maternal Grandmother Heart Maternal Grandfather Diabetes Maternal Grandfather Heart Paternal Grandmother Alzheimer's Disease Paternal Grandfather Heart Paternal Grandfather Diabetes Paternal Grandfather Diabetes Maternal Uncle Patient Allergies ALLERGIES Allergen Reactions Cortisone Unknown Possible-foot hurt after injection Current Medications Current Outpatient Medications on File Prior to Visit Medication Sig cholecalciferol, Vitamin D3, (VITAMIN D3) 1,250 mcg (50,000 unit) cap capsule Take 1 capsule by mouth one time a week. Phentermine HCl (ADIPEX-P) 37.5 mg tablet Take 1 tablet by mouth once daily for 60 days. BMI 29.74 omeprazole (PRILOSEC) 20 mg capsule Take 1 capsule by mouth daily before breakfast. 1/2 hr before meal. acyclovir (ZOVIRAX) 400 mg tablet Take 1 tablet by mouth twice daily. predniSONE (DELTASONE) 10 mg tablet Take 4 tabs daily for 3 days, then 2 tabs daily for 3 days, then 1 tab daily for 3 days with food. losartan (COZAAR) 50 mg tablet Take 1 tablet by mouth once daily. levothyroxine (LEVOXYL) 150 mcg tablet Take 1 tablet by mouth once daily. Take on empty stomach. For Thyroid. diclofenac, EC, (VOLTAREN) 75 mg EC tablet Take 1 tablet by mouth twice daily. estradiol (ESTRACE) 0.01 % (0.1 mg/gram) vaginal cream Use 1g vaginally 2-3 times per week. vitamin b complex capsule Take 1 capsule by mouth once daily. Leg Brace (ANKLE BRACE) [facility] 1 Device as directed. Right ankle pain, right ankle swelling simvastatin (ZOCOR) 80 mg tablet Take 1 tablet by mouth daily at bedtime. cholestyramine-sucrose (QUESTRAN) 4 gram powder Take 4 g by mouth three times daily with meals. diclofenac (VOLTAREN ARTHRITIS PAIN) 1 % topical gel Apply 2 g to affected area four times daily. sucralfate (CARAFATE) 1 gra (more content not included)... [facility] 03-25-2023 Miscellaneous Notes Patient has been identified by name and date of : Yes, Stephani Grissom RN Date 03/25/2023 Time 11:48 am Pharmacy phones for refill(s): Requested Prescriptions Pending Prescriptions Disp Refills cholecalciferol, Vitamin D3, (VITAMIN D3) 1,250 mcg (50,000 unit) cap capsule 4 capsule 1 Sig: Take 1 capsule by mouth one time a week. Date of last office visit in primary care: 01/04/2023 Date of next office visit in primary care: 04/05/2023 Last 2 Encounter Wt Readings: Date: Wt: 01/07/2023 73.5 kg (162 lb) 01/04/2023 72.6 kg (160 lb) Previous labs/tests for medication: Blood Pressure: BUN (mg/dL) Date Value 10/14/2022 15 04/14/2021 13 Sodium (mmol/L) Date Value 10/14/2022 138 04/14/2021 141 Last 1 Encounter BP Readings: Date: BP: 01/07/2023 138/86 Liver Function: ALT (U/L) Date Value 10/14/2022 12 04/14/2021 9 AST (U/L) Date Value 10/14/2022 21 04/14/2021 19 Please advise. Thank you. Stephani Grissom RN. documented in this encounter [facility] 03-19-2023 Miscellaneous Notes This was addressed by myself in her procedure result on [facility] today 03/19/2023. Imelda Elizalde APRN.STEFF Pt called in asking for the results of her EMG. Electrodiagnostic examination of the left upper extremity with comparison studies of the right ulnar nerve demonstrates: There is no significant evidence of left sided median neuropathy, radial neuropathy, nor cervical radiculopathy. There is no definite evidence of left-sided ulnar neuropathy. There are some findings that could be consistent with mild left chronic ulnar neuropathy (reduced left ulnar digit five sensory response compared to the right and mild chronic axonal loss changes in the left first dorsal interosseous muscle), however, these findings are not considered diagnostic as they are mild in degree and some similar EMG findings are present on the contralateral asymptomatic side. Please call and advise. documented in this encounter [facility] 03-15-2023 Note HNO ID: [id number] Author: Gael Hamilton MD Service: ? Author Type: Physician Type: Progress Notes Filed: 03/15/2023 3:07 PM Note Text: UNIVERSAL PROTOCOL / SAFETY CHECKLIST Procedure to be Performed: EMG Sign In: A Moment of CARE was completed. Personnel directly involved with the procedure wore the appropriate PPE (Personal Protective Equipment). Patient/Surrogate Stated/Verified: PATIENT VERIFIED(optional for EMERGENT procedures): Patient name, Date of , Relevant allergies, and The intended procedure Time Out Communication: Intended patient and procedure match the source documents. Correct side/site marked and visible. Sign Out: SIGN OUT (optional for EMERGENT procedures): Post-procedure follow-up management communicated and Plan of Care Visit completed when applicable. Ramonita Emery MD [facility] 03-15-2023 History of Present illness Narrative UNIVERSAL PROTOCOL / SAFETY CHECKLIST Procedure to be Performed: EMG Sign In: A Moment of CARE was completed. Personnel directly involved with the procedure wore the appropriate PPE (Personal Protective Equipment). Patient/Surrogate Stated/Verified: PATIENT VERIFIED(optional for EMERGENT procedures): Patient name, Date of , Relevant allergies, and The intended procedure Time Out Communication: Intended patient and procedure match the source documents. Correct side/site marked and visible. Sign Out: SIGN OUT (optional for EMERGENT procedures): Post-procedure follow-up management communicated and Plan of Care Visit completed when applicable. Ramonita Emery MD documented in this encounter [facility] 02-11-2023 Miscellaneous Notes PDMP website checked and validated. All prescriptions have been APPROPRIATELY filled. No suspicious activity was identified. 02/11/2023 by Cassandra Gaytan APRN.CNP The following approved medication requests have been transmitted electronically. Requested Prescriptions Signed Prescriptions Disp Refills Phentermine HCl (ADIPEX-P) 37.5 mg tablet 30 tablet 1 Sig: Take 1 tablet by mouth once daily for 60 days. BMI 29.74 Authorizing Provider: CASSANDRA GAYTAN APRN.CNP Patient has been identified by name and date of : Yes, Provider Imelda Elizalde NP Date 02/11/23 Time 1044 Pharmacy phones for refill(s): Requested Prescriptions Pending Prescriptions Disp Refills Phentermine HCl (ADIPEX-P) 37.5 mg tablet 30 tablet 1 Sig: Take 1 tablet by mouth once daily for 60 days. BMI 29.74 Date of last office visit in primary care: 01/04/2023 Date of next office visit in primary care: 04/05/2023 Last 2 Encounter Wt Readings: Date: Wt: 01/07/2023 73.5 kg (162 lb) 01/04/2023 72.6 kg (160 lb) Previous labs/tests for medication: Blood Pressure: BUN (mg/dL) Date Value 10/14/2022 15 04/14/2021 13 Sodium (mmol/L) Date Value 10/14/2022 138 04/14/2021 141 Last 1 Encounter BP Readings: Date: BP: 01/07/2023 138/86 Please advise. Thank you. Nneka Kaiser RN. documented in this encounter [facility] 02-02-2023 Miscellaneous Notes Pharmacy calling for refills, as pended. Requested Prescriptions Pending Prescriptions Disp Refills cholecalciferol, Vitamin D3, (VITAMIN D3) 1,250 mcg (50,000 unit) cap capsule 4 capsule 1 Sig: Take 1 capsule by mouth one time a week. omeprazole (PRILOSEC) 20 mg capsule 30 capsule 5 Sig: Take 1 capsule by mouth daily before breakfast. 1/2 hr before meal. JONATHON: 01/04/2023 Next appt: 04/05/2023 Last Vit D level: 10/14/22 41.1 Alison Edwards RN documented in this encounter [facility] 01-19-2023 Miscellaneous Notes January 20, 2023 PID: [id number] Manuelito Gordon [address] [place] [address] Dear Ms. Gordon, We are pleased to inform you that the results of your recent breast imaging exam on 01/19/2023 are normal. Early detection of cancer is very important. We also understand recommendations regarding breast cancer screening are controversial. Please discuss with your primary care provider which strategy is best for you and whether a mammogram is right for you. Your imaging studies and report will be kept on file at [facility] as part of your permanent medical record and are available for your continuing care. Thank you for allowing us to help in meeting your health care needs. Sincerely, Dr. Dickson Interpreting Radiologist [facility] (Normal over 40) documented in this encounter [facility] 01-19-2023 Note HNO ID: [id number] Author: Jake Barba Mammo Tech Service: ? Author Type: Technologist Type: Progress Notes Filed: 01/19/2023 11:17 AM Note Text: Radiology Service Progress Note PATIENT NAME: Manuelito Gordon DATE OF SERVICE: January 19, 2023 TIME: 11:01 AM PATIENT IDENTITY VERIFICATION COMPLETED USING TWO (2) IDENTIFIERS: Name and Date of confirmed by patient verbally. FALL SCREENING: Has the patient had 2 falls in the last year or 1 fall with injury or currently using an Ambulatory Assistive Device (Walker, Cane, Wheelchair, Crutches, etc.)? No PATIENT GENDER DATA: Female. status: : No status: NO. PATIENT RELEVANT IMPLANT DATA REVIEWED: Not Applicable RADIOLOGY DEPARTMENT: Mammography PERIPHERAL IV DATA: Not applicable SIGNED BY: Jake Barba Proxio January 19, 2023 11:01 AM [facility] 01-19-2023 History of Present illness Narrative Radiology Service Progress Note PATIENT NAME: Manuelito Gordon DATE OF SERVICE: January 19, 2023 TIME: 11:01 AM PATIENT IDENTITY VERIFICATION COMPLETED USING TWO (2) IDENTIFIERS: Name and Date of confirmed by patient verbally. FALL SCREENING: Has the patient had 2 falls in the last year or 1 fall with injury or currently using an Ambulatory Assistive Device (Walker, Cane, Wheelchair, Crutches, etc.)? No PATIENT GENDER DATA: Female. status: : No status: NO. PATIENT RELEVANT IMPLANT DATA REVIEWED: Not Applicable RADIOLOGY DEPARTMENT: Mammography PERIPHERAL IV DATA: Not applicable SIGNED BY: Stacy AlfordYogaTrail Abraham January 19, 2023 11:01 AM documented in this encounter [facility] 01-07-2023 Note HNO ID: [id number] Author: Samantha Gannon APRN.INSPECTOR PLATING Service: ? Author Type: Nurse Practitioner Type: Progress Notes Filed: 01/07/2023 5:46 PM Note Text: This note was created using [employer]. Subjective Manuelito Gordon is a 57 year old female. 57 year old female with PMH HTN, hyperlipidemia, GERD, gastritis presents with complaints of illness. Acute onset Wednesday +sore throat +sneezing +nasal congestion. + body aches Slight cough +post nasal drainage Denies N/V/D Denies fever or chills. Has used DayQuil Denies tobacco usage Denies ill contacts Patient states I think I have strep The history is provided by the patient. No hyster machine operator was used. URI She complains of cough, hoarse voice and sputum production. There is no chest tightness, difficulty breathing, frequent throat clearing, hemoptysis, shortness of breath or wheezing. This is a new problem. The current episode started in the past 7 days. The problem occurs constantly. The problem has been unchanged. The cough is non-productive. Associated symptoms include appetite change, a fever, headaches, malaise/fatigue, myalgias, nasal congestion, postnasal drip, rhinorrhea, sneezing and a sore throat. Pertinent negatives include no chest pain, dyspnea on exertion, ear congestion or ear pain. Her symptoms are aggravated by nothing. Her symptoms are alleviated by nothing. There are no known risk factors for lung disease. There is no history of asthma, bronchiectasis, bronchitis, COPD, emphysema or pneumonia. PAST MEDICAL HISTORY Diagnosis Date ABDOMINAL PAIN EPIGASTRIC 07/24/2008 Abdominal pain, unspecified site Abnormal glandular Papanicolaou smear of cervix 2007 Abn. Pap smear (cervix) Anxiety and depression Atrophic vaginitis 06/29/2013 Cancer (HCC) Chronic daily headache Diaphragmatic hernia without mention of obstruction or gangrene Diarrhea Esophagitis, unspecified Genital herpes High blood pressure High cholesterol Low back pain Multiple thyroid nodules ANTOLIN (obstructive sleep apnea) 2011 does not wear CPAP Osteopenia 2011 Other and unspecified noninfectious gastroenteritis and colitis(558.9) Pure hypercholesterolemia Sleep-disordered breathing Snoring Unspecified essential hypertension PAST SURGICAL HISTORY Procedure Laterality Date DELIVERY ONLY , low cervical DELIVERY ONLY , low cervical COLONOSCOPY FLX DX W/COLLJ SPEC WHEN PFRMD 07/06/2017 Colonoscopy COLONOSCOPY FLX DX W/COLLJ SPEC WHEN PFRMD 02/15/2018 Colonoscopy COLONOSCOPY W/BIOPSY SINGLE/MULTIPLE 02/26/2005 [facility] - normal - biopsies normal COLONOSCOPY W/BIOPSY SINGLE/MULTIPLE 09/24/2006 NORMAL CECUM, SMALL POLYP RECTUM - HYPERPLASTIC APPEARING COLONOSCOPY W/BIOPSY SINGLE/MULTIPLE 12/30/2007 Normal visualized colon EGD 08/06/2020 EGD TRANSORAL BIOPSY SINGLE/MULTIPLE 09/24/2006 SMALL HIATAL HERNIA, MINIMAL GASTRITIS EGD TRANSORAL BIOPSY SINGLE/MULTIPLE 08/09/2008 mild duodenitis, esophagitis, small hiatal hernia EGD TRANSORAL BIOPSY SINGLE/MULTIPLE 04/28/2010 mild gastritis, esophagitis EGD TRANSORAL BIOPSY SINGLE/MULTIPLE 12/15/2016 gastritis, reflux esophagitis ESOPHAGOGASTRODUODENOSCOPY TRANSORAL DIAGNOSTIC 02/15/2018 EGD EYE SURGERY HX LAPAROSCOPY SURG CHOLECYSTECTOMY 06/02/2005 Cholecystectomy, lap LIG/TRNSXJ FLP TUBE ABDL/VAG APPR UNI/BI Tubal ligation NEUROPLASTY AND/TRANSPOS MEDIAN NRV CARPAL TUNNE Right 03/08/2015 Right CTR NEUROPLASTY AND/TRANSPOSITION ULNAR NERVE ELBOW Right 03/08/2015 Ulnar nerve decompression TOTAL ABDOMINAL HYSTERECT W/WO RMVL TUBE OVARY 2001 Hysterectomy, JC, left oophorectomy ALLERGIES Cortisone MEDICATIONS acyclovir (ZOVIRAX) 400 mg tablet Take 1 tablet by mouth twice daily. losartan (COZAAR) 50 mg tablet Take 1 tablet by mouth once daily. Phentermine HCl (ADIPEX-P) 37.5 mg tablet Take 1 tablet by mouth once daily for 30 days. BMI 29.74 hydroquinone (ELDOQUIN FORTE) 4 % cream Apply to affected area twice daily. levothyroxine (LEVOXYL) 150 mcg tablet Take 1 tablet by mouth once daily. Take on empty stomach. For Thyroid. cholecalciferol, Vitamin D3, (VITAMIN D3) 1,250 mcg (50,000 unit) cap capsule Take 1 capsule by mouth one time a week. diclofenac, EC, (VOLTAREN) 75 mg EC tablet Take 1 tablet by mouth twice daily. estradiol (ESTRACE) 0.01 % (0.1 mg/gram) vaginal cream Use 1g vaginally 2-3 times per week. vitamin b complex capsule Take 1 capsule by mouth once daily. Leg Brace (ANKLE BRACE) mis 1 Device as directed. Right ankle pain, right ankle swelling omeprazole (PRILOSEC) 20 mg capsule Take 1 capsule by mouth daily before breakfast. 1/2 hr before meal. simvastatin (ZOCOR) 80 mg tablet Take 1 tablet by mouth daily at bedtime. cholestyramine-sucrose (QUESTRAN) 4 gram powder Take 4 g by mouth three times daily with meals. diclofenac (VOLTAREN ARTHRITIS PAIN (more content not included)... [facility] 01-07-2023 History of Present illness Narrative This note was created using NoteWriter. Subjective Manuelito Gordon is a 57 year old female. 57 year old female with PMH HTN, hyperlipidemia, GERD, gastritis presents with complaints of illness. Acute onset Wednesday +sore throat +sneezing +nasal congestion. + body aches Slight cough +post nasal drainage Denies N/V/D Denies fever or chills. Has used DayQuil Denies tobacco usage Denies ill contacts Patient states I think I have strep The history is provided by the patient. No hyster machine operator was used. URI She complains of cough, hoarse voice and sputum production. There is no chest tightness, difficulty breathing, frequent throat clearing, hemoptysis, shortness of breath or wheezing. This is a new problem. The current episode started in the past 7 days. The problem occurs constantly. The problem has been unchanged. The cough is non-productive. Associated symptoms include appetite change, a fever, headaches, malaise/fatigue, myalgias, nasal congestion, postnasal drip, rhinorrhea, sneezing and a sore throat. Pertinent negatives include no chest pain, dyspnea on exertion, ear congestion or ear pain. Her symptoms are aggravated by nothing. Her symptoms are alleviated by nothing. There are no known risk factors for lung disease. There is no history of asthma, bronchiectasis, bronchitis, COPD, emphysema or pneumonia. PAST MEDICAL HISTORY Diagnosis Date ABDOMINAL PAIN EPIGASTRIC 07/24/2008 Abdominal pain, unspecified site Abnormal glandular Papanicolaou smear of cervix 2007 Abn. Pap smear (cervix) Anxiety and depression Atrophic vaginitis 06/29/2013 Cancer (HCC) Chronic daily headache Diaphragmatic hernia without mention of obstruction or gangrene Diarrhea Esophagitis, unspecified Genital herpes High blood pressure High cholesterol Low back pain Multiple thyroid nodules ANTOLIN (obstructive sleep apnea) 2011 does not wear CPAP Osteopenia 2011 Other and unspecified noninfectious gastroenteritis and colitis(558.9) Pure hypercholesterolemia Sleep-disordered breathing Snoring Unspecified essential hypertension PAST SURGICAL HISTORY Procedure Laterality Date DELIVERY ONLY , low cervical DELIVERY ONLY , low cervical COLONOSCOPY FLX DX W/COLLJ SPEC WHEN PFRMD 07/06/2017 Colonoscopy COLONOSCOPY FLX DX W/COLLJ SPEC WHEN PFRMD 02/15/2018 Colonoscopy COLONOSCOPY W/BIOPSY SINGLE/MULTIPLE 02/26/2005 [facility] - normal - biopsies normal COLONOSCOPY W/BIOPSY SINGLE/MULTIPLE 09/24/2006 NORMAL CECUM, SMALL POLYP RECTUM - HYPERPLASTIC APPEARING COLONOSCOPY W/BIOPSY SINGLE/MULTIPLE 12/30/2007 Normal visualized colon EGD 08/06/2020 EGD TRANSORAL BIOPSY SINGLE/MULTIPLE 09/24/2006 SMALL HIATAL HERNIA, MINIMAL GASTRITIS EGD TRANSORAL BIOPSY SINGLE/MULTIPLE 08/09/2008 mild duodenitis, esophagitis, small hiatal hernia EGD TRANSORAL BIOPSY SINGLE/MULTIPLE 04/28/2010 mild gastritis, esophagitis EGD TRANSORAL BIOPSY SINGLE/MULTIPLE 12/15/2016 gastritis, reflux esophagitis ESOPHAGOGASTRODUODENOSCOPY TRANSORAL DIAGNOSTIC 02/15/2018 EGD EYE SURGERY HX LAPAROSCOPY SURG CHOLECYSTECTOMY 06/02/2005 Cholecystectomy, lap LIG/TRNSXJ FLP TUBE ABDL/VAG APPR UNI/BI Tubal ligation NEUROPLASTY &/TRANSPOS MEDIAN NRV CARPAL TUNNE Right 03/08/2015 Right CTR NEUROPLASTY &/TRANSPOSITION ULNAR NERVE ELBOW Right 03/08/2015 Ulnar nerve decompression TOTAL ABDOMINAL HYSTERECT W/WO RMVL TUBE OVARY 2000 Hysterectomy, JC, left oophorectomy ALLERGIES Cortisone MEDICATIONS acyclovir (ZOVIRAX) 400 mg tablet Take 1 tablet by mouth twice daily. losartan (COZAAR) 50 mg tablet Take 1 tablet by mouth once daily. Phentermine HCl (ADIPEX-P) 37.5 mg tablet Take 1 tablet by mouth once daily for 30 days. BMI 29.74 hydroquinone (ELDOQUIN FORTE) 4 % cream Apply to affected area twice daily. levothyroxine (LEVOXYL) 150 mcg tablet Take 1 tablet by mouth once daily. Take on empty stomach. For Thyroid. cholecalciferol, Vitamin D3, (VITAMIN D3) 1,250 mcg (50,000 unit) cap capsule Take 1 capsule by mouth one time a week. diclofenac, EC, (VOLTAREN) 75 mg EC tablet Take 1 tablet by mouth twice daily. estradiol (ESTRACE) 0.01 % (0.1 mg/gram) vaginal cream Use 1g vaginally 2-3 times per week. vitamin b complex capsule Take 1 capsule by mouth once daily. Leg Brace (ANKLE BRACE) [facility] 1 Device as directed. Right ankle pain, right ankle swelling omeprazole (PRILOSEC) 20 mg capsule Take 1 capsule by mouth daily before breakfast. 1/2 hr before meal. simvastatin (ZOCOR) 80 mg tablet Take 1 tablet by mouth daily at bedtime. cholestyramine-sucrose (QUESTRAN) 4 gram powder Take 4 g by mouth three times daily with meals. diclofenac (VOLTAREN ARTHRITIS PAIN) 1 % topical gel Apply 2 g to affected area four times daily. buPROPion XL (WELLBUTRIN XL) 300 mg 24 hr tablet Take 1 tablet by mouth once daily. sucralfate (CARAFATE) 1 gram tablet Take 1 tablet by mouth four times daily. ondansetron orally disintegrating (ZOFRAN ODT) 4 mg disintegrating tablet Take 1 tablet by mouth every 8 hours as needed for Nausea/Vomiting. predniSONE (DELTASONE) 10 mg tablet Take 4 tabs daily for 3 days, then 2 tabs daily for 3 days, then 1 tab daily for 3 days with food. buPROPion XL (WELLBUTRIN XL) 150 mg 24 hr tablet Take 1 tablet by mouth once daily. (Patient not taking: Reported on 12/03/2022) benzonatate (TESSALON PERLE) 100 mg capsule Take 2 capsules by mouth three times daily as needed. (Patient not taking: Reported on 12/03/2022) FLUoxetine (PROZAC) 40 mg capsule Take 1 capsule by mouth every morning. (Patient not taking: Reported on 12/03/2022) FAMILY HISTORY Problem Relation Age of Onset Cancer Mother RENAL CANCER Arthritis Mother Heart Father Heart Maternal Grandmother Diabetes Maternal Grandmother Heart Maternal Grandfather Diabetes Maternal Grandfather Heart Paternal Grandmother Alzheimer's Disease Paternal Grandfather Heart Paternal Grandfather Diabetes Paternal Grandfather Diabetes Maternal Uncle Social History Tobacco Use Smoking status: Never Smokeless tobacco: Never Vaping Use Vaping Use: Never used Substance Use Topics Alcohol use: No Drug use: No Review of Systems Constitutional: Positive for appetite change, fever and malaise/fatigue. HENT: Positive for congestion, hoarse voice, postnasal drip, rhinorrhea, sneezing and sore throat. Negative for ear pain. Eyes: Negative for photophobia, pain, discharge, redness, itching and visual disturbance. Respiratory: Positive for cough and sputum production. Negative for apnea, hemoptysis, chest tightness, shortness of breath and wheezing. Cardiovascular: Negative for chest pain and dyspnea on exertion. Gastrointestinal: Negative for abdominal pain, diarrhea, nausea and vomiting. Musculoskeletal: Positive for myalgias. Negative for arthralgias and back pain. Skin: Negative for color change, pallor, rash and wound. Allergic/Immunologic: Negative for environmental allergies, food allergies and immunocompromised state. Neurological: Positive for headaches. Hematological: Negative for adenopathy. Does not bruise/bleed easily. Psychiatric/Behavioral: Negative for agitation and behavioral problems. Objective BP 138/86 Pulse 78 Temp 36.9 C (98.4 F) Resp 16 Wt 73.5 kg (162 lb) SpO2 98% BMI 30.11 kg/m Physical Exam Vitals and nursing note reviewed. Constitutional: General: She is not in acute distress. Appearance: Normal appearance. She is normal weight. She is not ill-appearing, toxic-appearing or diaphoretic. HENT: Head: Normocephalic and atraumatic. Right Ear: Ear canal and external ear normal. Left Ear: Ear canal and external ear normal. Nose: Nose normal. No congestion or rhinorrhea. Mouth/Throat: Mouth: Mucous membranes are moist. Pharynx: Posterior oropharyngeal erythema present. No oropharyngeal exudate. Eyes: General: Right eye: No discharge. Left eye: No discharge. Extraocular Movements: Extraocular movements intact. Conjunctiva/sclera: Conjunctivae normal. Pupils: Pupils are equal, round, and reactive to light. Cardiovascular: Rate and Rhythm: Normal rate and regular rhythm. Pulses: Normal pulses. Heart sounds: Normal heart sounds. No murmur heard. No friction rub. Pulmonary: Effort: Pulmonary effort is normal. No respiratory distress. Breath sounds: Normal breath sounds. No stridor. No wheezing, rhonchi or rales. Comments: Harsh cough with deep inspiration, otherwise lungs CTA with good air exchange. Chest: Chest wall: No tenderness. Abdominal: General: Abdomen is flat. There is no distension. Palpations: Abdomen is soft. There is no mass. Tenderness: There is no abdominal tenderness. There is no right CVA tenderness, left CVA tenderness, guarding or rebound. Hernia: No hernia is present. Musculoskeletal: General: No swelling, tenderness, deformity or signs of injury. Normal range of motion. Cervical back: Normal range of motion and neck supple. No rigidity. Right lower leg: No edema. Left lower leg: No edema. Lymphadenopathy: Cervical: No cervical adenopathy. Skin: General: Skin is warm and dry. Capillary Refill: Capillary refill takes less than 2 seconds. Coloration: Skin is not jaundiced or pale. Findings: No bruising, erythema, lesion or rash. Neurological: General: No focal deficit present. Mental Status: She is alert and oriented to person, place, and time. Cranial Nerves: No cranial nerve deficit. Sensory: No sensory deficit. Motor: No weakness. Coordination: Coordination normal. Gait: Gait normal. Psychiatric: Mood and Affect: Mood normal. Behavior: Behavior normal. Thought Content: Thought content normal. Judgment: Judgment normal. Assessment and Plan ASSESSMENT/PLAN: 1. Upper respiratory tract infection, unspecified type - ICD9: 465.9, ICD10: J06.9 X 2 days - Discussed viral etiology and rationale for treatment. - Group A strep molecular testing negative - Symptomatic treatment with prn analgesia - Supportive care with fluids and rest - The patient may also use OTC cough and cold meds as needed, warm salt water gargles, throat lozenges and/or OTC throat spray as needed, and nasal saline gtts and suction prn. - Follow up in 3-5 days if symptoms persist or sooner if worsening of symptoms - RX Prednisone is flu negative RX Tessalon - STREP A MOLECULAR (POC) - COVID & INFLUENZA A/B & RSV NAAT, ROUTINE - COVID NAAT, UPPER RESPIRATORY, ROUTINE - ROUTINE FLU A/B + RSV Samantha Gannon APRN.INSPECTOR PLATING documented in this encounter [facility] 01-07-2023 Miscellaneous Notes The following approved medication requests have been transmitted electronically. Requested Prescriptions Signed Prescriptions Disp Refills acyclovir (ZOVIRAX) 400 mg tablet 180 tablet 3 Sig: Take 1 tablet by mouth twice daily. Authorizing Provider: Jennifer SEGUNDO PA-C Called pt she said it was for genital herpes so she does not get a break out. States been on for a while can not remember who prescribed it thought it was here. Drugstore just called her said was out of refills so called for one. Please find out more information. Who prescribed this and for what reason. Thank you, Cassandra Gaytan APRN.INSPECTOR PLATING Patient has been identified by name and date of : Yes Last office visit in this department: 01/04/2023 RX INSTRUCTIONS: Patient aware RX will be sent to pharmacy. No need to notify patient. Patient phones requesting refills as follows: Requested Prescriptions Pending Prescriptions Disp Refills acyclovir (ZOVIRAX) 400 mg tablet Please review and advise. Janette Tavera Pss documented in this encounter [facility] 01-05-2023 Miscellaneous Notes Patient has been identified by name and date of : Yes, Provider Dasilva Date 01-05-23 Time 10:27 am Pharmacy phones for refill(s): Requested Prescriptions Pending Prescriptions Disp Refills losartan (COZAAR) 50 mg tablet 30 tablet 5 Sig: Take 1 tablet by mouth once daily. Date of last office visit with pcp: 01-04-23. Next appt: 04-05-23 Last 2 Encounter Wt Readings: Date: Wt: 01/04/2023 72.6 kg (160 lb) 12/03/2022 73.9 kg (163 lb) Previous labs/tests for medication: Blood Pressure: BUN (mg/dL) Date Value 10/14/2022 15 04/14/2021 13 Sodium (mmol/L) Date Value 10/14/2022 138 04/14/2021 141 Last 1 Encounter BP Readings: Date: BP: 01/04/2023 122/80 Please advise. Thank you. Jennifer Capone RN documented in this encounter [facility] 01-04-2023 Note HNO ID: [id number] Author: Imelda Elizalde APRN.STEFF Service: ? Author Type: Nurse Practitioner Type: Progress Notes Filed: 01/04/2023 2:40 PM Note Text: Chief Complaint Patient presents with: F/U 3 Month: Adipex HPI Manuelito Gordon is a 57 year old female who presents here today for Above Complaints.. Weight 09/30/2022: 175 pounds, BMI 33.1 Weight today 01/04/2023: 160 pounds, BMI 29.74 Today: Tolerating Adipex well. Some dry mouth, no other concerning side effects. Diet-cutting down on portion size, not eating late at night. Cutting out candy and ice cream (especially @ night). Exercise-walks on pretty much a daily basis. Inside of left arm is hurting, hurts with much movement, lifting, activity. Hasn't taken medication, ice, or heat. Getting somewhat worse. Hurts at nighttime-typically feels better in the mornings. Past medical history, appointments, medications, allergies reviewed. Previous Medical History PAST MEDICAL HISTORY Diagnosis Date ABDOMINAL PAIN EPIGASTRIC 07/24/2008 Abdominal pain, unspecified site Abnormal glandular Papanicolaou smear of cervix 2007 Abn. Pap smear (cervix) Anxiety and depression Atrophic vaginitis 06/29/2013 Cancer (HCC) Chronic daily headache Diaphragmatic hernia without mention of obstruction or gangrene Diarrhea Esophagitis, unspecified Genital herpes High blood pressure High cholesterol Low back pain Multiple thyroid nodules ANTOLIN (obstructive sleep apnea) 2012 does not wear CPAP Osteopenia 2012 Other and unspecified noninfectious gastroenteritis and colitis(558.9) Pure hypercholesterolemia Sleep-disordered breathing Snoring Unspecified essential hypertension Previous Surgical History PAST SURGICAL HISTORY Procedure Laterality Date DELIVERY ONLY , low cervical DELIVERY ONLY , low cervical COLONOSCOPY FLX DX W/COLLJ SPEC WHEN PFRMD 07/06/2017 Colonoscopy COLONOSCOPY FLX DX W/COLLJ SPEC WHEN PFRMD 02/15/2018 Colonoscopy COLONOSCOPY W/BIOPSY SINGLE/MULTIPLE 02/26/2005 [facility] - normal - biopsies normal COLONOSCOPY W/BIOPSY SINGLE/MULTIPLE 09/24/2006 NORMAL CECUM, SMALL POLYP RECTUM - HYPERPLASTIC APPEARING COLONOSCOPY W/BIOPSY SINGLE/MULTIPLE 12/30/2007 Normal visualized colon EGD 08/06/2020 EGD TRANSORAL BIOPSY SINGLE/MULTIPLE 09/24/2006 SMALL HIATAL HERNIA, MINIMAL GASTRITIS EGD TRANSORAL BIOPSY SINGLE/MULTIPLE 08/09/2008 mild duodenitis, esophagitis, small hiatal hernia EGD TRANSORAL BIOPSY SINGLE/MULTIPLE 04/28/2010 mild gastritis, esophagitis EGD TRANSORAL BIOPSY SINGLE/MULTIPLE 12/15/2016 gastritis, reflux esophagitis ESOPHAGOGASTRODUODENOSCOPY TRANSORAL DIAGNOSTIC 02/15/2018 EGD EYE SURGERY HX LAPAROSCOPY SURG CHOLECYSTECTOMY 06/02/2005 Cholecystectomy, lap LIG/TRNSXJ FLP TUBE ABDL/VAG APPR UNI/BI Tubal ligation NEUROPLASTY AND/TRANSPOS MEDIAN NRV CARPAL TUNNE Right 03/08/2015 Right CTR NEUROPLASTY AND/TRANSPOSITION ULNAR NERVE ELBOW Right 03/08/2015 Ulnar nerve decompression TOTAL ABDOMINAL HYSTERECT W/WO RMVL TUBE OVARY 2000 Hysterectomy, JC, left oophorectomy Family History FAMILY HISTORY Problem Relation Age of Onset Cancer Mother RENAL CANCER Arthritis Mother Heart Father Heart Maternal Grandmother Diabetes Maternal Grandmother Heart Maternal Grandfather Diabetes Maternal Grandfather Heart Paternal Grandmother Alzheimer's Disease Paternal Grandfather Heart Paternal Grandfather Diabetes Paternal Grandfather Diabetes Maternal Uncle Patient Allergies ALLERGIES Allergen Reactions Cortisone Unknown Possible-foot hurt after injection Current Medications Current Outpatient Medications on File Prior to Visit Medication Sig levothyroxine (LEVOXYL) 150 mcg tablet Take 1 tablet by mouth once daily. Take on empty stomach. For Thyroid. cholecalciferol, Vitamin D3, (VITAMIN D3) 1,250 mcg (50,000 unit) cap capsule Take 1 capsule by mouth one time a week. diclofenac, EC, (VOLTAREN) 75 mg EC tablet Take 1 tablet by mouth twice daily. acyclovir (ZOVIRAX) 400 mg tablet estradiol (ESTRACE) 0.01 % (0.1 mg/gram) vaginal cream Use 1g vaginally 2-3 times per week. vitamin b complex capsule Take 1 capsule by mouth once daily. Leg Brace (ANKLE BRACE) [facility] 1 Device as directed. Right ankle pain, right ankle swelling omeprazole (PRILOSEC) 20 mg capsule Take 1 capsule by mouth daily before breakfast. 1/2 hr before meal. losartan (COZAAR) 50 mg tablet Take 1 tablet by mouth once daily. simvastatin (ZOCOR) 80 mg tablet Take 1 tablet by mouth daily at bedtime. cholestyramine-sucrose (QUESTRAN) 4 gram powder Take 4 g by mouth three times daily with meals. diclofenac (VOLTAREN ARTHRITIS PAIN) 1 % topical gel Apply 2 g to affected area four times daily. buPROPion XL (WELLBUTRIN XL) 300 mg 24 hr tablet Take 1 tablet by mouth once daily. sucralfate (CARAFATE) 1 gram tablet Take 1 tablet b (more content not included)... [facility] 12-08-2022 Miscellaneous Notes Patient has been identified by name and date of : Pharmacy phones for refill(s): Requested Prescriptions Pending Prescriptions Disp Refills levothyroxine (LEVOXYL) 150 mcg tablet 30 tablet 5 Sig: Take 1 tablet by mouth once daily. Take on empty stomach. For Thyroid. cholecalciferol, Vitamin D3, (VITAMIN D3) 1,250 mcg (50,000 unit) cap capsule 4 capsule 1 Sig: Take 1 capsule by mouth one time a week. diclofenac, EC, (VOLTAREN) 75 mg EC tablet 60 tablet 5 Sig: Take 1 tablet by mouth twice daily. Date of last office visit in primary care: 09/30/2022, has appt 12/30/2022 Last 2 Encounter Wt Readings: Date: Wt: 12/03/2022 73.9 kg (163 lb) 11/16/2022 73.9 kg (163 lb) Previous labs/tests for medication: Thyroid: TSH Date Value 10/14/2022 1.520 mIU/L 04/14/2021 1.470 uU/mL Please advise. Thank you. Silvana Snider LPN documented in this encounter [facility] 12-03-2022 Miscellaneous Notes Addended by: SAMANTHA LOPEZ on: 12/03/2022 11:54 AM Modules accepted: Orders Addended by: ADRIANA MURRAY MA on: 12/03/2022 10:39 AM Modules accepted: Orders documented in this encounter [facility] 12-03-2022 Note HNO ID: [id number] Author: Samantha Lopez MD Service: ? Author Type: Physician Type: Progress Notes Filed: 12/03/2022 10:25 AM Note Text: Manuelito is a 56 year old who presents for an annual gynecologic exam. Postmenopausal: Yes - s/p hyst Last Pap: 10/29/2020 normal HPV: N/A History of abnormal pap: Yes - normal since 2009 (had colpo 2007 Last mammogram: 2021 normal OB History T2 L2 SAB0 IAB0 Ectopic0 Multiple0 Live Births0 Comment: 2 sections [employer] History LMP: Hysterectomy Age at Menarche: Age at First : Age at Menopause: [employer] History Comments: Sexual Activity: Not Currently; Male; PT HAD HYSTERECTOMY Contraception: Surgical PAST MEDICAL HISTORY Diagnosis Date ABDOMINAL PAIN EPIGASTRIC 07/24/2008 Abdominal pain, unspecified site Abnormal glandular Papanicolaou smear of cervix 2007 Abn. Pap smear (cervix) Anxiety and depression Atrophic vaginitis 06/29/2013 Cancer (HCC) Chronic daily headache Diaphragmatic hernia without mention of obstruction or gangrene Diarrhea Esophagitis, unspecified Genital herpes High blood pressure High cholesterol Low back pain Multiple thyroid nodules ANTOLIN (obstructive sleep apnea) 2012 does not wear CPAP Osteopenia 2012 Other and unspecified noninfectious gastroenteritis and colitis(558.9) Pure hypercholesterolemia Sleep-disordered breathing Snoring Unspecified essential hypertension PAST SURGICAL HISTORY Procedure Laterality Date DELIVERY ONLY , low cervical DELIVERY ONLY , low cervical COLONOSCOPY FLX DX W/COLLJ SPEC WHEN PFRMD 07/06/2017 Colonoscopy COLONOSCOPY FLX DX W/COLLJ SPEC WHEN PFRMD 02/15/2018 Colonoscopy COLONOSCOPY W/BIOPSY SINGLE/MULTIPLE 02/26/2005 [facility] - normal - biopsies normal COLONOSCOPY W/BIOPSY SINGLE/MULTIPLE 09/24/2006 NORMAL CECUM, SMALL POLYP RECTUM - HYPERPLASTIC APPEARING COLONOSCOPY W/BIOPSY SINGLE/MULTIPLE 12/30/2007 Normal visualized colon EGD 08/06/2020 EGD TRANSORAL BIOPSY SINGLE/MULTIPLE 09/24/2006 SMALL HIATAL HERNIA, MINIMAL GASTRITIS EGD TRANSORAL BIOPSY SINGLE/MULTIPLE 08/09/2008 mild duodenitis, esophagitis, small hiatal hernia EGD TRANSORAL BIOPSY SINGLE/MULTIPLE 04/28/2010 mild gastritis, esophagitis EGD TRANSORAL BIOPSY SINGLE/MULTIPLE 12/15/2016 gastritis, reflux esophagitis ESOPHAGOGASTRODUODENOSCOPY TRANSORAL DIAGNOSTIC 02/15/2018 EGD EYE SURGERY HX LAPAROSCOPY SURG CHOLECYSTECTOMY 06/02/2005 Cholecystectomy, lap LIG/TRNSXJ FLP TUBE ABDL/VAG APPR UNI/BI Tubal ligation NEUROPLASTY AND/TRANSPOS MEDIAN NRV CARPAL TUNNE Right 03/08/2015 Right CTR NEUROPLASTY AND/TRANSPOSITION ULNAR NERVE ELBOW Right 03/08/2015 Ulnar nerve decompression TOTAL ABDOMINAL HYSTERECT W/WO RMVL TUBE OVARY 2001 Hysterectomy, JC, left oophorectomy FAMILY HISTORY Problem Relation Age of Onset Cancer Mother RENAL CANCER Arthritis Mother Heart Father Heart Maternal Grandmother Diabetes Maternal Grandmother Heart Maternal Grandfather Diabetes Maternal Grandfather Heart Paternal Grandmother Alzheimer's Disease Paternal Grandfather Heart Paternal Grandfather Diabetes Paternal Grandfather Diabetes Maternal Uncle SOCIAL HISTORY Social History Tobacco Use Smoking status: Never Smokeless tobacco: Never Vaping Use Vaping Use: Never used Substance Use Topics Alcohol use: No Drug use: No REVIEW OF SYSTEMS Abdomen: stable IBS Bladder: still has some urinary urgency AND frequency, some dysuria Breast: No breast lumps, nipple d/c, overlying skin changes, redness or skin retraction Allergies and current medication updated:Yes EXAM: BP 130/84 Ht 5' 1.5 (1.56m) Wt 163 lb (73.9kg) BMI 30.30 kg/(m2). GENERAL: pleasant, female in no apparent distress BREAST: soft, non-tender, symmetric, no dominant mass, normal nipple-areolar complex, no lymphadenopathy, and no nipple discharge CHEST: Normal inspiratory effort ABDOMEN: soft, non-tender, and no masses PELVIC: external genitalia normal, no vulvar lesions, physiologic discharge present, normal appearing perineal body and perianal region BIMANUAL: no adnexal masses, non-tender, and uterus surgically absent RECTOVAGINAL: rectovaginal exam negative for any masses or nodularity. NEURO: alert and oriented x3,exam grossly non-focal EXTREMITIES: normal ASSESSMENT/PLAN: 1) Health maintenance: Pap done with HPV. Mammogram ordered Colon cancer screening: up to date with screening - due 2027 2) Follow up one year or sooner as needed 3) Urinary concerns - check UA AND urine culture. Declines pelvic floor PT. 4) Atrophic vaginitis - continue estrace Samantha Lopez MD [facility] 12-03-2022 History of Present illness Narrative Manuelito is a 56 year old who presents for an annual gynecologic exam. Postmenopausal: Yes - s/p hyst Last Pap: 10/29/2020 normal HPV: N/A History of abnormal pap: Yes - normal since 2009 (had colpo 2007 Last mammogram: 2021 normal OB History T2 L2 SAB0 IAB0 Ectopic0 Multiple0 Live Births0 Comment: 2 sections [employer] History LMP: Hysterectomy Age at Menarche: Age at First : Age at Menopause: [employer] History Comments: Sexual Activity: Not Currently; Male; PT HAD HYSTERECTOMY Contraception: Surgical PAST MEDICAL HISTORY Diagnosis Date ABDOMINAL PAIN EPIGASTRIC 07/24/2008 Abdominal pain, unspecified site Abnormal glandular Papanicolaou smear of cervix 2007 Abn. Pap smear (cervix) Anxiety and depression Atrophic vaginitis 06/29/2013 Cancer (HCC) Chronic daily headache Diaphragmatic hernia without mention of obstruction or gangrene Diarrhea Esophagitis, unspecified Genital herpes High blood pressure High cholesterol Low back pain Multiple thyroid nodules ANTOLIN (obstructive sleep apnea) 2012 does not wear CPAP Osteopenia 2012 Other and unspecified noninfectious gastroenteritis and colitis(558.9) Pure hypercholesterolemia Sleep-disordered breathing Snoring Unspecified essential hypertension PAST SURGICAL HISTORY Procedure Laterality Date DELIVERY ONLY , low cervical DELIVERY ONLY , low cervical COLONOSCOPY FLX DX W/COLLJ SPEC WHEN PFRMD 07/06/2017 Colonoscopy COLONOSCOPY FLX DX W/COLLJ SPEC WHEN PFRMD 02/15/2018 Colonoscopy COLONOSCOPY W/BIOPSY SINGLE/MULTIPLE 02/26/2005 [facility] - normal - biopsies normal COLONOSCOPY W/BIOPSY SINGLE/MULTIPLE 09/24/2006 NORMAL CECUM, SMALL POLYP RECTUM - HYPERPLASTIC APPEARING COLONOSCOPY W/BIOPSY SINGLE/MULTIPLE 12/30/2007 Normal visualized colon EGD 08/06/2020 EGD TRANSORAL BIOPSY SINGLE/MULTIPLE 09/24/2006 SMALL HIATAL HERNIA, MINIMAL GASTRITIS EGD TRANSORAL BIOPSY SINGLE/MULTIPLE 08/09/2008 mild duodenitis, esophagitis, small hiatal hernia EGD TRANSORAL BIOPSY SINGLE/MULTIPLE 04/28/2010 mild gastritis, esophagitis EGD TRANSORAL BIOPSY SINGLE/MULTIPLE 12/15/2016 gastritis, reflux esophagitis ESOPHAGOGASTRODUODENOSCOPY TRANSORAL DIAGNOSTIC 02/15/2018 EGD EYE SURGERY HX LAPAROSCOPY SURG CHOLECYSTECTOMY 06/02/2005 Cholecystectomy, lap LIG/TRNSXJ FLP TUBE ABDL/VAG APPR UNI/BI Tubal ligation NEUROPLASTY &/TRANSPOS MEDIAN NRV CARPAL TUNNE Right 03/08/2015 Right CTR NEUROPLASTY &/TRANSPOSITION ULNAR NERVE ELBOW Right 03/08/2015 Ulnar nerve decompression TOTAL ABDOMINAL HYSTERECT W/WO RMVL TUBE OVARY 2001 Hysterectomy, JC, left oophorectomy FAMILY HISTORY Problem Relation Age of Onset Cancer Mother RENAL CANCER Arthritis Mother Heart Father Heart Maternal Grandmother Diabetes Maternal Grandmother Heart Maternal Grandfather Diabetes Maternal Grandfather Heart Paternal Grandmother Alzheimer's Disease Paternal Grandfather Heart Paternal Grandfather Diabetes Paternal Grandfather Diabetes Maternal Uncle SOCIAL HISTORY Social History Tobacco Use Smoking status: Never Smokeless tobacco: Never Vaping Use Vaping Use: Never used Substance Use Topics Alcohol use: No Drug use: No REVIEW OF SYSTEMS Abdomen: stable IBS Bladder: still has some urinary urgency & frequency, some dysuria Breast: No breast lumps, nipple d/c, overlying skin changes, redness or skin retraction Allergies and current medication updated:Yes EXAM: BP 130/84 Ht 5' 1.5 (1.56m) Wt 163 lb (73.9kg) BMI 30.30 kg/(m^2). GENERAL: pleasant, female in no apparent distress BREAST: soft, non-tender, symmetric, no dominant mass, normal nipple-areolar complex, no lymphadenopathy, and no nipple discharge CHEST: Normal inspiratory effort ABDOMEN: soft, non-tender, and no masses PELVIC: external genitalia normal, no vulvar lesions, physiologic discharge present, normal appearing perineal body and perianal region BIMANUAL: no adnexal masses, non-tender, and uterus surgically absent RECTOVAGINAL: rectovaginal exam negative for any masses or nodularity. NEURO: alert and oriented x3,exam grossly non-focal EXTREMITIES: normal ASSESSMENT/PLAN: 1) Health maintenance: Pap done with HPV. Mammogram ordered Colon cancer screening: up to date with screening - due 2027 2) Follow up one year or sooner as needed 3) Urinary concerns - check UA & urine culture. Declines pelvic floor PT. 4) Atrophic vaginitis - continue estrace Samantha Lopez MD documented in this encounter [facility] 11-16-2022 Note HNO ID: [id number] Author: Sariah Snell APRN.INSPECTOR PLATING Service: ? Author Type: Nurse Practitioner Type: Progress Notes Filed: 11/16/2022 8:30 AM Note Text: Chief Complaint Patient presents with: ER F/U: Suture removal HPI Manuelito Gordon is a 56 year old female who presents here today for Above Complaints.. Patient presents for suture removal. Patient was seen in er for laceration to her left index finger which she obtained trying to clean up broken glass. Past medical history, appointments, medications, allergies reviewed. Previous Medical History PAST MEDICAL HISTORY Diagnosis Date ABDOMINAL PAIN EPIGASTRIC 07/24/2008 Abdominal pain, unspecified site Abnormal glandular Papanicolaou smear of cervix 2007 Abn. Pap smear (cervix) Anxiety and depression Atrophic vaginitis 06/29/2013 Cancer (HCC) Chronic daily headache Diaphragmatic hernia without mention of obstruction or gangrene Diarrhea Esophagitis, unspecified Genital herpes High blood pressure High cholesterol Low back pain Multiple thyroid nodules ANTOLIN (obstructive sleep apnea) 2011 does not wear CPAP Osteopenia 2011 Other and unspecified noninfectious gastroenteritis and colitis(558.9) Pure hypercholesterolemia Sleep-disordered breathing Snoring Unspecified essential hypertension Previous Surgical History PAST SURGICAL HISTORY Procedure Laterality Date DELIVERY ONLY , low cervical DELIVERY ONLY , low cervical COLONOSCOPY FLX DX W/COLLJ SPEC WHEN PFRMD 07/06/2017 Colonoscopy COLONOSCOPY FLX DX W/COLLJ SPEC WHEN PFRMD 02/15/2018 Colonoscopy COLONOSCOPY W/BIOPSY SINGLE/MULTIPLE 02/26/2005 [facility] - normal - biopsies normal COLONOSCOPY W/BIOPSY SINGLE/MULTIPLE 09/24/2006 NORMAL CECUM, SMALL POLYP RECTUM - HYPERPLASTIC APPEARING COLONOSCOPY W/BIOPSY SINGLE/MULTIPLE 12/30/2007 Normal visualized colon EGD 08/06/2020 EGD TRANSORAL BIOPSY SINGLE/MULTIPLE 09/24/2006 SMALL HIATAL HERNIA, MINIMAL GASTRITIS EGD TRANSORAL BIOPSY SINGLE/MULTIPLE 08/09/2008 mild duodenitis, esophagitis, small hiatal hernia EGD TRANSORAL BIOPSY SINGLE/MULTIPLE 04/28/2010 mild gastritis, esophagitis EGD TRANSORAL BIOPSY SINGLE/MULTIPLE 12/15/2016 gastritis, reflux esophagitis ESOPHAGOGASTRODUODENOSCOPY TRANSORAL DIAGNOSTIC 02/15/2018 EGD EYE SURGERY HX LAPAROSCOPY SURG CHOLECYSTECTOMY 06/02/2005 Cholecystectomy, lap LIG/TRNSXJ FLP TUBE ABDL/VAG APPR UNI/BI Tubal ligation NEUROPLASTY AND/TRANSPOS MEDIAN NRV CARPAL TUNNE Right 03/08/2015 Right CTR NEUROPLASTY AND/TRANSPOSITION ULNAR NERVE ELBOW Right 03/08/2015 Ulnar nerve decompression TOTAL ABDOMINAL HYSTERECT W/WO RMVL TUBE OVARY 2000 Hysterectomy, JC, left oophorectomy Family History FAMILY HISTORY Problem Relation Age of Onset Cancer Mother RENAL CANCER Arthritis Mother Heart Father Heart Maternal Grandmother Diabetes Maternal Grandmother Heart Maternal Grandfather Diabetes Maternal Grandfather Heart Paternal Grandmother Alzheimer's Disease Paternal Grandfather Heart Paternal Grandfather Diabetes Paternal Grandfather Diabetes Maternal Uncle Patient Allergies ALLERGIES No Known Allergies Current Medications Current Outpatient Medications on File Prior to Visit Medication Sig vitamin b complex capsule Take 1 capsule by mouth once daily. cholecalciferol, Vitamin D3, (VITAMIN D3) 1,250 mcg (50,000 unit) cap capsule Take 1 capsule by mouth one time a week. Leg Brace (ANKLE BRACE) misc 1 Device as directed. Right ankle pain, right ankle swelling omeprazole (PRILOSEC) 20 mg capsule Take 1 capsule by mouth daily before breakfast. 1/2 hr before meal. buPROPion XL (WELLBUTRIN XL) 150 mg 24 hr tablet Take 1 tablet by mouth once daily. losartan (COZAAR) 50 mg tablet Take 1 tablet by mouth once daily. levothyroxine (LEVOXYL) 150 mcg tablet Take 1 tablet by mouth once daily. Take on empty stomach. For Thyroid. simvastatin (ZOCOR) 80 mg tablet Take 1 tablet by mouth daily at bedtime. benzonatate (TESSALON PERLE) 100 mg capsule Take 2 capsules by mouth three times daily as needed. estradiol (ESTRACE) 0.01 % (0.1 mg/gram) vaginal cream Use 1g vaginally 2-3 times per week. FLUoxetine (PROZAC) 40 mg capsule Take 1 capsule by mouth every morning. cholestyramine-sucrose (QUESTRAN) 4 gram powder Take 4 g by mouth three times daily with meals. diclofenac (VOLTAREN ARTHRITIS PAIN) 1 % topical gel Apply 2 g to affected area four times daily. buPROPion XL (WELLBUTRIN XL) 300 mg 24 hr tablet Take 1 tablet by mouth once daily. sucralfate (CARAFATE) 1 gram tablet Take 1 tablet by mouth four times daily. ondansetron orally disintegrating (ZOFRAN ODT) 4 mg disintegrating tablet Take 1 tablet by mouth every 8 hours as needed for Nausea/Vomiting. No current facility-administered medications on file prior to visit. Social History Social History Tobacco Use (more content not included)... [facility] 11-16-2022 History of Present illness Narrative Chief Complaint Patient presents with: ER F/U: Suture removal HPI Manuelito Gordon is a 56 year old female who presents here today for Above Complaints.. Patient presents for suture removal. Patient was seen in er for laceration to her left index finger which she obtained trying to clean up broken glass. Past medical history, appointments, medications, allergies reviewed. Previous Medical History PAST MEDICAL HISTORY Diagnosis Date ABDOMINAL PAIN EPIGASTRIC 07/24/2008 Abdominal pain, unspecified site Abnormal glandular Papanicolaou smear of cervix 2007 Abn. Pap smear (cervix) Anxiety and depression Atrophic vaginitis 06/29/2013 Cancer (HCC) Chronic daily headache Diaphragmatic hernia without mention of obstruction or gangrene Diarrhea Esophagitis, unspecified Genital herpes High blood pressure High cholesterol Low back pain Multiple thyroid nodules ANTOLIN (obstructive sleep apnea) 2012 does not wear CPAP Osteopenia 2011 Other and unspecified noninfectious gastroenteritis and colitis(558.9) Pure hypercholesterolemia Sleep-disordered breathing Snoring Unspecified essential hypertension Previous Surgical History PAST SURGICAL HISTORY Procedure Laterality Date DELIVERY ONLY , low cervical DELIVERY ONLY , low cervical COLONOSCOPY FLX DX W/COLLJ SPEC WHEN PFRMD 07/06/2017 Colonoscopy COLONOSCOPY FLX DX W/COLLJ SPEC WHEN PFRMD 02/15/2018 Colonoscopy COLONOSCOPY W/BIOPSY SINGLE/MULTIPLE 02/26/2005 [facility] - normal - biopsies normal COLONOSCOPY W/BIOPSY SINGLE/MULTIPLE 09/24/2006 NORMAL CECUM, SMALL POLYP RECTUM - HYPERPLASTIC APPEARING COLONOSCOPY W/BIOPSY SINGLE/MULTIPLE 12/30/2007 Normal visualized colon EGD 08/06/2020 EGD TRANSORAL BIOPSY SINGLE/MULTIPLE 09/24/2006 SMALL HIATAL HERNIA, MINIMAL GASTRITIS EGD TRANSORAL BIOPSY SINGLE/MULTIPLE 08/09/2008 mild duodenitis, esophagitis, small hiatal hernia EGD TRANSORAL BIOPSY SINGLE/MULTIPLE 04/28/2010 mild gastritis, esophagitis EGD TRANSORAL BIOPSY SINGLE/MULTIPLE 12/15/2016 gastritis, reflux esophagitis ESOPHAGOGASTRODUODENOSCOPY TRANSORAL DIAGNOSTIC 02/15/2018 EGD EYE SURGERY HX LAPAROSCOPY SURG CHOLECYSTECTOMY 06/02/2005 Cholecystectomy, lap LIG/TRNSXJ FLP TUBE ABDL/VAG APPR UNI/BI Tubal ligation NEUROPLASTY &/TRANSPOS MEDIAN NRV CARPAL TUNNE Right 03/08/2015 Right CTR NEUROPLASTY &/TRANSPOSITION ULNAR NERVE ELBOW Right 03/08/2015 Ulnar nerve decompression TOTAL ABDOMINAL HYSTERECT W/WO RMVL TUBE OVARY 2001 Hysterectomy, JC, left oophorectomy Family History FAMILY HISTORY Problem Relation Age of Onset Cancer Mother RENAL CANCER Arthritis Mother Heart Father Heart Maternal Grandmother Diabetes Maternal Grandmother Heart Maternal Grandfather Diabetes Maternal Grandfather Heart Paternal Grandmother Alzheimer's Disease Paternal Grandfather Heart Paternal Grandfather Diabetes Paternal Grandfather Diabetes Maternal Uncle Patient Allergies ALLERGIES No Known Allergies Current Medications Current Outpatient Medications on File Prior to Visit Medication Sig vitamin b complex capsule Take 1 capsule by mouth once daily. cholecalciferol, Vitamin D3, (VITAMIN D3) 1,250 mcg (50,000 unit) cap capsule Take 1 capsule by mouth one time a week. Leg Brace (ANKLE BRACE) [facility] 1 Device as directed. Right ankle pain, right ankle swelling omeprazole (PRILOSEC) 20 mg capsule Take 1 capsule by mouth daily before breakfast. 1/2 hr before meal. buPROPion XL (WELLBUTRIN XL) 150 mg 24 hr tablet Take 1 tablet by mouth once daily. losartan (COZAAR) 50 mg tablet Take 1 tablet by mouth once daily. levothyroxine (LEVOXYL) 150 mcg tablet Take 1 tablet by mouth once daily. Take on empty stomach. For Thyroid. simvastatin (ZOCOR) 80 mg tablet Take 1 tablet by mouth daily at bedtime. benzonatate (TESSALON PERLE) 100 mg capsule Take 2 capsules by mouth three times daily as needed. estradiol (ESTRACE) 0.01 % (0.1 mg/gram) vaginal cream Use 1g vaginally 2-3 times per week. FLUoxetine (PROZAC) 40 mg capsule Take 1 capsule by mouth every morning. cholestyramine-sucrose (QUESTRAN) 4 gram powder Take 4 g by mouth three times daily with meals. diclofenac (VOLTAREN ARTHRITIS PAIN) 1 % topical gel Apply 2 g to affected area four times daily. buPROPion XL (WELLBUTRIN XL) 300 mg 24 hr tablet Take 1 tablet by mouth once daily. sucralfate (CARAFATE) 1 gram tablet Take 1 tablet by mouth four times daily. ondansetron orally disintegrating (ZOFRAN ODT) 4 mg disintegrating tablet Take 1 tablet by mouth every 8 hours as needed for Nausea/Vomiting. No current facility-administered medications on file prior to visit. Social History Social History Tobacco Use Smoking status: Never Smokeless tobacco: Never Vaping Use Vaping Use: Never used Substance Use Topics Alcohol use: No Drug use: No Review of Symptoms REVIEW OF SYSTEMS SEE HPI EXAM: BP 130/76 Pulse 68 Resp 14 Wt 73.9 kg (163 lb) BMI 30.30 kg/m General Appearance: Well appearing, alert, in no acute distress, well-hydrated, well nourished.. Skin: Skin to tip of left index finger dry, wound edges well approximated. 3 sutures intact. . Health Maintenance List HEPATITIS B(1 of 3 - 3-dose series) Never done SHINGRIX VACCINE(1 of 2) Never done MAMMOGRAM due on 01/05/2023 COVID-19 VACCINE(1) due on 10/01/2023 INFLUENZA(1) due on 12/25/2022 ANNUAL PCP TEAM CHRONIC DISEASE VISIT due on 10/01/2023 BP CONTROLLED (<130/80) due on 10/01/2023 DIABETES SCREEN due on 10/14/2025 LIPID SCREEN due on 02/10/2026 COLORECTAL CANCER SCREENING due on 02/16/2028 DTAP,TDAP,TD(3 - Td or Tdap) due on 04/14/2031 HEPATITIS C SCREENING Completed HIV SCREENING Completed PAP TESTING Discontinued HPV TESTING Discontinued DEPRESSION ASSESSMENT Discontinued ASSESSMENT/PLAN: 1. Encounter for removal of sutures - ICD9: V58.32, ICD10: Z48.02 (primary diagnosis) -3 sutures removed from left index finger, patient tolerated well. 2. Laceration of left index finger without foreign body without damage to nail, subsequent encounter - ICD9: V58.89, ICD10: S61.211D -well healing, informed patient skin flap likely to fall off now that sutures are out. Patient reports ER physician informed her this would likely happen and skin flap ws sutured for protection of wound. Sariah Snell APRN.INSPECTOR PLATING documented in this encounter [facility] 11-04-2022 Miscellaneous Notes Patient has been identified by name and date of : Yes, Provider Dr Dasilva Date 11/04/22 Time 1559. Pharmacy phones for refill(s): Requested Prescriptions Pending Prescriptions Disp Refills vitamin b complex capsule 30 capsule 5 Sig: Take 1 capsule by mouth once daily. Date of last office visit in primary care: 09/30/22 Future visit: 12/30/22 Last 2 Encounter Wt Readings: Date: Wt: 09/30/2022 79.4 kg (175 lb) 06/09/2022 80.3 kg (177 lb) Previous labs/tests for medication: Blood Pressure: BUN (mg/dL) Date Value 10/14/2022 15 04/14/2021 13 Sodium (mmol/L) Date Value 10/14/2022 138 04/14/2021 141 Last 1 Encounter BP Readings: Date: BP: 09/30/2022 120/70 Liver Function: ALT (U/L) Date Value 10/14/2022 12 04/14/2021 9 AST (U/L) Date Value 10/14/2022 21 04/14/2021 19 Please advise. Thank you. Selin Freeman, FARRAH documented in this encounter [facility] 10-26-2022 Miscellaneous Notes Podiatry consult placed, please assist her to schedule. Imelda Elizalde APRN.CNP Call to pt and notified her of results and recommendation below. Pt agreeable to podiatry consult to Dr. Marx. Please file pended consult. Once filed please route to scheduling to have them call pt to schedule appt with pt. Lindsay Vega Ma Please let Manuelito know that there are no changes in her xray from previous. If she would like since this is chronic and not improving/seems to be worsening, if she would like, we can get her in to see podiatry. Imelda Elizalde APRN.INSPECTOR PLATING documented in this encounter [facility] 10-22-2022 Miscellaneous Notes Patient notified of results and provider's instructions. Patient verbalizes understanding. Laura Sam RN Please inform patient that her labs are overall okay. Her serum creatinine is slightly high. She needs to make sure she cuts back on her soda/iced tea, needs to drink at least 60 oz of water a day. Also needs to avoid NSAIDs Kai Dasilva DO documented in this encounter [facility] 10-15-2022 Miscellaneous Notes [employer] phones requesting refills as follows: Requested Prescriptions Pending Prescriptions Disp Refills cholecalciferol, Vitamin D3, (VITAMIN D3) 1,250 mcg (50,000 unit) cap capsule 4 capsule 1 Sig: Take 1 capsule by mouth one time a week. JONATHON: 09/30/22 NOV: 12/30/22 Last Refill: 08/21/22 #4 1 refill Ana Max LPN documented in this encounter [facility] 10-14-2022 Note HNO ID: [id number] Author: RT Chaitanya(R) Service: Nuclear Medicine Author Type: Technologist Type: Progress Notes Filed: 10/14/2022 10:07 AM Note Text: Radiology Service Progress Note PATIENT NAME: Manuelito Gordon DATE OF SERVICE: October 14, 2022 TIME: 10:00 AM PATIENT IDENTITY VERIFICATION COMPLETED USING TWO (2) IDENTIFIERS: Name and Date of confirmed by patient verbally. FALL SCREENING: Has the patient had 2 falls in the last year or 1 fall with injury or currently using an Ambulatory Assistive Device (Walker, Cane, Wheelchair, Crutches, etc.)? No PATIENT GENDER DATA: Female. status: : No status: NO. PATIENT RELEVANT IMPLANT DATA REVIEWED: Not Applicable RADIOLOGY DEPARTMENT: General X-ray: Exam(s) Completed: Lower Extremity X-Ray(s): Ankle, Right and Wt. Bearing PERIPHERAL IV DATA: Not applicable SIGNED BY: RT Chaitanya(R) October 14, 2022 10:00 AM [facility] 09-30-2022 Note HNO ID: [id number] Author: Kai Dasilva, DO Service: ? Author Type: Physician Type: Progress Notes Filed: 09/30/2022 8:44 PM Note Text: CC: Manuelito Gordon is a 56 year old female who presents to the office for follow up HPI: + fatigue symptoms, long standing Right ankle, pain and pressure, worse after she has been walking and standing for long periods of time, no known injuries. Doesn't wear an ankle support brace but would be willing to. Hypothyroidism, taking her levothyroxine medication, hasn't had recent labs checked Darkening of skin on her face, getting worse, would like to try something to help her skin lighten. 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 She is very physically active with walking with her job. She is also working on cutting back on sugars and carbs in her diet. PAST MEDICAL HISTORY Diagnosis Date ABDOMINAL PAIN EPIGASTRIC 07/24/2008 Abdominal pain, unspecified site Abnormal glandular Papanicolaou smear of cervix 2007 Abn. Pap smear (cervix) Anxiety and depression Atrophic vaginitis 06/29/2013 Cancer (HCC) Chronic daily headache Diaphragmatic hernia without mention of obstruction or gangrene Diarrhea Esophagitis, unspecified Genital herpes High blood pressure High cholesterol Low back pain Multiple thyroid nodules ANTOLIN (obstructive sleep apnea) 2012 does not wear CPAP Osteopenia 2012 Other and unspecified noninfectious gastroenteritis and colitis(558.9) Pure hypercholesterolemia Sleep-disordered breathing Snoring Unspecified essential hypertension PAST SURGICAL HISTORY Procedure Laterality Date DELIVERY ONLY , low cervical DELIVERY ONLY , low cervical COLONOSCOPY FLX DX W/COLLJ SPEC WHEN PFRMD 07/06/2017 Colonoscopy COLONOSCOPY FLX DX W/COLLJ SPEC WHEN PFRMD 02/15/2018 Colonoscopy COLONOS[facility] W/BI[facility]SY [facility]ING[facility] COLONOSCOPY W/BIOPSY SINGLE/MULTIPLE 09/24/2006 NORMAL CECUM, SMALL POLYP RECTUM - HYPERPLASTIC APPEARING COLONOSCOPY W/BIOPSY SINGLE/MULTIPLE 12/30/2007 Normal visualized colon EGD 08/06/2020 EGD TRANSORAL BIOPSY SINGLE/MULTIPLE 09/24/2006 SMALL HIATAL HERNIA, MINIMAL GASTRITIS EGD TRANSORAL BIOPSY SINGLE/MULTIPLE 08/09/2008 mild duodenitis, esophagitis, small hiatal hernia EGD TRANSORAL BIOPSY SINGLE/MULTIPLE 04/28/2010 mild gastritis, esophagitis EGD TRANSORAL BIOPSY SINGLE/MULTIPLE 12/15/2016 gastritis, reflux esophagitis ESOPHAGOGASTRODUODENOSCOPY TRANSORAL DIAGNOSTIC 02/15/2018 EGD EYE SURGERY HX LAPAROSCOPY SURG CHOLECYSTECTOMY 06/02/2005 Cholecystectomy, lap LIG/TRNSXJ FLP TUBE ABDL/VAG APPR UNI/BI Tubal ligation NEUROPLASTY AND/TRANSPOS MEDIAN NRV CARPAL TUNNE Right 03/08/2015 Right CTR NEUROPLASTY AND/TRANSPOSITION ULNAR NERVE ELBOW Right 03/08/2015 Ulnar nerve decompression TOTAL ABDOMINAL HYSTERECT W/WO RMVL TUBE OVARY 2001 Hysterectomy, JC, left oophorectomy Current Outpatient Medications Medication Sig acyclovir (ZOVIRAX) 400 mg tablet Take 1 tablet by mouth twice daily. cholecalciferol, Vitamin D3, (VITAMIN D3) 1,250 mcg (50,000 unit) cap capsule Take 1 capsule by mouth one time a week. omeprazole (PRILOSEC) 20 mg capsule Take 1 capsule by mouth daily before breakfast. 1/2 hr before meal. losartan (COZAAR) 50 mg tablet Take 1 tablet by mouth once daily. levothyroxine (LEVOXYL) 150 mcg tablet Take 1 tablet by mouth once daily. Take on empty stomach. For Thyroid. simvastatin (ZOCOR) 80 mg tablet Take 1 tablet by mouth daily at bedtime. vitamin b complex capsule Take 1 capsule by mouth once daily. estradiol (ESTRACE) 0.01 % (0.1 mg/gram) vaginal cream Use 1g vaginally 2-3 times per week. cholestyramine-sucrose (QUESTRAN) 4 gram powder Take 4 g by mouth three times daily with meals. diclofenac (VOLTAREN ARTHRITIS PAIN) 1 % topical gel Apply 2 g to affected area four times daily. buPROPion XL (WELLBUTRIN XL) 300 mg 24 hr tablet Take 1 tablet by mouth once daily. sucralfate (CARAFATE) 1 gram tablet Take 1 tablet by mouth four times daily. ondansetron orally disintegrating (ZOFRAN ODT) 4 mg disintegrating tablet Take 1 tablet by mouth every 8 hours as needed for Nausea/Vomiting. hydroquinone (ELDOQUIN FORTE) 4 % cream Apply to affected area twice daily. Leg Brace (ANKLE BRACE) misc 1 Device as directed. Right ankle pain, right ankle swelling Phentermine HCl (ADIPEX-P) 37.5 mg tablet Take 1 tablet by mouth once daily for 30 days. BMI 32.53 buPROPion XL (WELLBUTRIN XL) 150 mg 24 hr tablet Take 1 tablet by mouth once daily. benzonatate (TESSALON PERLE) 100 mg capsule Take 2 capsules by mouth three times daily as needed. FLUoxetine (PROZAC) 40 mg capsule Take 1 caps (more content not included)... [facility] 09-30-2022 History of Present illness Narrative CC: Manuelito Gordon is a 56 year old female who presents to the office for follow up HPI: + fatigue symptoms, long standing Right ankle, pain and pressure, worse after she has been walking and standing for long periods of time, no known injuries. Doesn't wear an ankle support brace but would be willing to. Hypothyroidism, taking her levothyroxine medication, hasn't had recent labs checked Darkening of skin on her face, getting worse, would like to try something to help her skin lighten. 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 She is very physically active with walking with her job. She is also working on cutting back on sugars and carbs in her diet. PAST MEDICAL HISTORY Diagnosis Date ABDOMINAL PAIN EPIGASTRIC 07/24/2008 Abdominal pain, unspecified site Abnormal glandular Papanicolaou smear of cervix 2007 Abn. Pap smear (cervix) Anxiety and depression Atrophic vaginitis 06/29/2013 Cancer (HCC) Chronic daily headache Diaphragmatic hernia without mention of obstruction or gangrene Diarrhea Esophagitis, unspecified Genital herpes High blood pressure High cholesterol Low back pain Multiple thyroid nodules ANTOLIN (obstructive sleep apnea) 2011 does not wear CPAP Osteopenia 2011 Other and unspecified noninfectious gastroenteritis and colitis(558.9) Pure hypercholesterolemia Sleep-disordered breathing Snoring Unspecified essential hypertension PAST SURGICAL HISTORY Procedure Laterality Date DELIVERY ONLY , low cervical DELIVERY ONLY , low cervical COLONOSCOPY FLX DX W/COLLJ SPEC WHEN PFRMD 07/06/2017 Colonoscopy COLONOSCOPY FLX DX W/COLLJ SPEC WHEN PFRMD 02/15/2018 Colonoscopy COLONOSCOPY W/BIOPSY SINGLE/MULTIPLE 02/26/2005 [facility] - normal - biopsies normal COLONOSCOPY W/BIOPSY SINGLE/MULTIPLE 09/24/2006 NORMAL CECUM, SMALL POLYP RECTUM - HYPERPLASTIC APPEARING COLONOSCOPY W/BIOPSY SINGLE/MULTIPLE 12/30/2007 Normal visualized colon EGD 08/06/2020 EGD TRANSORAL BIOPSY SINGLE/MULTIPLE 09/24/2006 SMALL HIATAL HERNIA, MINIMAL GASTRITIS EGD TRANSORAL BIOPSY SINGLE/MULTIPLE 08/09/2008 mild duodenitis, esophagitis, small hiatal hernia EGD TRANSORAL BIOPSY SINGLE/MULTIPLE 04/28/2010 mild gastritis, esophagitis EGD TRANSORAL BIOPSY SINGLE/MULTIPLE 12/15/2016 gastritis, reflux esophagitis ESOPHAGOGASTRODUODENOSCOPY TRANSORAL DIAGNOSTIC 02/15/2018 EGD EYE SURGERY HX LAPAROSCOPY SURG CHOLECYSTECTOMY 06/02/2005 Cholecystectomy, lap LIG/TRNSXJ FLP TUBE ABDL/VAG APPR UNI/BI Tubal ligation NEUROPLASTY &/TRANSPOS MEDIAN NRV CARPAL TUNNE Right 03/08/2015 Right CTR NEUROPLASTY &/TRANSPOSITION ULNAR NERVE ELBOW Right 03/08/2015 Ulnar nerve decompression TOTAL ABDOMINAL HYSTERECT W/WO RMVL TUBE OVARY 2000 Hysterectomy, JC, left oophorectomy Current Outpatient Medications Medication Sig acyclovir (ZOVIRAX) 400 mg tablet Take 1 tablet by mouth twice daily. cholecalciferol, Vitamin D3, (VITAMIN D3) 1,250 mcg (50,000 unit) cap capsule Take 1 capsule by mouth one time a week. omeprazole (PRILOSEC) 20 mg capsule Take 1 capsule by mouth daily before breakfast. 1/2 hr before meal. losartan (COZAAR) 50 mg tablet Take 1 tablet by mouth once daily. levothyroxine (LEVOXYL) 150 mcg tablet Take 1 tablet by mouth once daily. Take on empty stomach. For Thyroid. simvastatin (ZOCOR) 80 mg tablet Take 1 tablet by mouth daily at bedtime. vitamin b complex capsule Take 1 capsule by mouth once daily. estradiol (ESTRACE) 0.01 % (0.1 mg/gram) vaginal cream Use 1g vaginally 2-3 times per week. cholestyramine-sucrose (QUESTRAN) 4 gram powder Take 4 g by mouth three times daily with meals. diclofenac (VOLTAREN ARTHRITIS PAIN) 1 % topical gel Apply 2 g to affected area four times daily. buPROPion XL (WELLBUTRIN XL) 300 mg 24 hr tablet Take 1 tablet by mouth once daily. sucralfate (CARAFATE) 1 gram tablet Take 1 tablet by mouth four times daily. ondansetron orally disintegrating (ZOFRAN ODT) 4 mg disintegrating tablet Take 1 tablet by mouth every 8 hours as needed for Nausea/Vomiting. hydroquinone (ELDOQUIN FORTE) 4 % cream Apply to affected area twice daily. Leg Brace (ANKLE BRACE) misc 1 Device as directed. Right ankle pain, right ankle swelling Phentermine HCl (ADIPEX-P) 37.5 mg tablet Take 1 tablet by mouth once daily for 30 days. BMI 32.53 buPROPion XL (WELLBUTRIN XL) 150 mg 24 hr tablet Take 1 tablet by mouth once daily. benzonatate (TESSALON PERLE) 100 mg capsule Take 2 capsules by mouth three times daily as needed. FLUoxetine (PROZAC) 40 mg capsule Take 1 capsule by mouth every morning. Current Facility-Administered Medications Medication Dose Route Frequency perflutren lipid microspheres 1.3 mL in NaCl (PF) 0.9% 10 mL injection (DEFINITY) INTRAVENOUS DIRECTED PRN sodium chloride 0.9 % (flush) 10 mL (BD POSIFLUSH) 10 mL INTRAVENOUS DIRECTED PRN ALLERGIES No Known Allergies Social History Tobacco Use Smoking status: Never Smokeless tobacco: Never Vaping Use Vaping Use: Never used Substance Use Topics Alcohol use: No Drug use: No ROS: See HPI PE: BP 120/70 Pulse 64 Temp (Src) 97 (Temporal) Resp 16 Wt 175 lb (79.4kg) Gen: A&OX3, NAD, non-toxic appearing, appears fatigued. HEENT: PERRLA, EOMs intact b/l, nares without drainage, pharynx without erythema, exudate, lesions, or drainage. Uvula midline. Skin pigment darkening on cheeks and chin on face Neck: No LAD, no thyromegaly, no meningismus. CV: RRR, no murmur Lungs: CTA b/l, no wheezing Skin: No rashes, lesions, or wounds on exposed skin. Swelling right medial and lateral ankle joint without other obvious deformity ASSESSMENT/PLAN: 1. Melasma - ICD9: 709.09, ICD10: L81.1 (primary diagnosis) - rx as below, f/u with industrial electrical technician - HYDROQUINONE 4 % TOPICAL CREAM 2. Chronic pain of right ankle - ICD9: 719.47, 338.29, ICD10: M25.571, G89.29 - xrays and labs as ordered. Use of rest, ice, elevation and bracing - ANKLE BRACE - COMP METABOLIC PANEL - CBC + DIFF - TSH BLD - C-REACTIVE PROTEIN (CRP) - URIC ACID BLOOD 3. Right ankle swelling - ICD9: 719.07, ICD10: M25.471 See above - ANKLE BRACE - COMP METABOLIC PANEL - CBC + DIFF - TSH BLD - C-REACTIVE PROTEIN (CRP) - URIC ACID BLOOD 4. Obesity, Class I, BMI 30-34.9 - ICD9: 278.00, ICD10: E66.9 Stable - Behavioral intervention, - Pharmacological intervention, and - Add Phentermine - PHENTERMINE 37.5 MG TABLET - CORTISOL BLD 5. Fatigue, unspecified type - ICD9: 780.79, ICD10: R53.83 Check labs as ordered - VITAMIN B12 BLOOD - VITAMIN D 25 HYDROXY - CORTISOL BLD Kai Dasilva DO Return if no improvement. Follow up with Kai Dasilva DO. To ER if develops chest pain, shortness of breath Discussed risks, benefits, alternatives, and potential side effects of medications. Patient/Guardian expressed understanding and agreed with the plan. See patient instructions. Kai Dasilva DO [address] [place] [address] documented in this encounter [facility] 08-20-2022 Miscellaneous Notes Patient has been identified by name and date of : Yes, Provider Dr. Dasilva Date 08/20/22 Time 11:14 am Pharmacy phones for refill(s): Requested Prescriptions Pending Prescriptions Disp Refills cholecalciferol, Vitamin D3, (VITAMIN D3) 1,250 mcg (50,000 unit) cap capsule 4 capsule 1 Sig: Take 1 capsule by mouth one time a week. omeprazole (PRILOSEC) 20 mg capsule 30 capsule 5 Sig: Take 1 capsule by mouth daily before breakfast. 1/2 hr before meal. Date of last office visit in primary care: 02/03/22 next apt 09/11/22 Last 2 Encounter Wt Readings: Date: Wt: 06/09/2022 80.3 kg (177 lb) 02/03/2022 77.1 kg (170 lb) Previous labs/tests for medication: Not applicable Thank you. Alyssia Martínez LPN documented in this encounter [facility] 07-24-2022 Miscellaneous Notes Patient has been identified by name and date of : Yes Last office visit in this department: 02/03/2022 Labs-02/03/22 NOV-09/11/22 RX INSTRUCTIONS: Pharmacy initiated this request. No need to notify patient. Patient phones requesting refills as follows: Requested Prescriptions Pending Prescriptions Disp Refills buPROPion XL (WELLBUTRIN XL) 150 mg 24 hr tablet 90 tablet 3 Sig: Take 1 tablet by mouth once daily. losartan (COZAAR) 50 mg tablet 30 tablet 5 Sig: Take 1 tablet by mouth once daily. Please review and advise. Janette Tavera Pss documented in this encounter [facility] 06-25-2022 Miscellaneous Notes Patient has been identified by name and date of : Yes, Provider Date Time Pharmacy phones for refill(s): Requested Prescriptions Pending Prescriptions Disp Refills cholecalciferol, Vitamin D3, (VITAMIN D3) 1,250 mcg (50,000 unit) cap capsule 4 capsule 1 Sig: Take 1 capsule by mouth one time a week. levothyroxine (LEVOXYL) 150 mcg tablet 30 tablet 5 Sig: Take 1 tablet by mouth once daily. Take on empty stomach. For Thyroid. diclofenac, EC, (VOLTAREN) 75 mg EC tablet 60 tablet 5 Sig: Take 1 tablet by mouth twice daily. simvastatin (ZOCOR) 80 mg tablet 30 tablet 11 Sig: Take 1 tablet by mouth daily at bedtime. Date of last office visit with pcp: 02/03/22 Date of last office visit in primary care: Last 2 Encounter Wt Readings: Date: Wt: 06/09/2022 80.3 kg (177 lb) 02/03/2022 77.1 kg (170 lb) Previous labs/tests for medication: Thyroid: TSH Date Value 12/15/2021 1.850 mIU/L 04/14/2021 1.470 uU/mL Cholesterol: HDL Cholesterol (mg/dL) Date Value 05/03/2020 50 HDL Cholesterol, Nonfasting (mg/dL) Date Value 02/10/2021 40 LDL Cholesterol (mg/dL) Date Value 05/03/2020 174 LDL Cholesterol, Nonfasting (mg/dL) Date Value 02/10/2021 166 ALT (U/L) Date Value 12/15/2021 12 04/14/2021 9 Non HDL Cholesterol, Nonfasting (mg/dL) Date Value 02/10/2021 218 Please advise. Thank you. Deidra Foote RN documented in this encounter [facility] 06-10-2022 Miscellaneous Notes Patient notified of results, verbalized understanding. Yamila Machuca MA ----- Message from Christian Reyna MD sent at 06/10/2022 8:07 AM EST ----- Negative COVID and influenza. documented in this encounter [facility] 06-09-2022 Note HNO ID: [id number] Author: Raad May APRN.INSPECTOR PLATING Service: ? Author Type: Nurse Practitioner Type: Progress Notes Filed: 06/09/2022 1:12 PM Note Text: Subjective HPI HPI Manuelito Gordon is a 56 year old female who presents today for CC of st, cough, congestion, h/a. This started 4 days ago. Has tried otc medication for relief. Symptoms are worsened by nothing. Risk factors sick exposures at home. nonsmoker. .Patient presents with: Nasal Congestion: drainage, cough, sore throat and headache x 4 days PAST MEDICAL HISTORY Diagnosis Date ABDOMINAL PAIN EPIGASTRIC 07/24/2008 Abdominal pain, unspecified site Abnormal glandular Papanicolaou smear of cervix 2007 Abn. Pap smear (cervix) Anxiety and depression Atrophic vaginitis 06/29/2013 Cancer (HCC) Chronic daily headache Diaphragmatic hernia without mention of obstruction or gangrene Diarrhea Esophagitis, unspecified Genital herpes High blood pressure High cholesterol Low back pain Multiple thyroid nodules ANTOLIN (obstructive sleep apnea) 2012 does not wear CPAP Osteopenia 2011 Other and unspecified noninfectious gastroenteritis and colitis(558.9) Pure hypercholesterolemia Sleep-disordered breathing Snoring Unspecified essential hypertension PAST SURGICAL HISTORY Procedure Laterality Date DELIVERY ONLY , low cervical DELIVERY ONLY , low cervical COLONOSCOPY FLX DX W/COLLJ SPEC WHEN PFRMD 07/06/2017 Colonoscopy COLONOSCOPY FLX DX W/COLLJ SPEC WHEN PFRMD 02/15/2018 Colonoscopy COLONOSCOPY W/BIOPSY SINGLE/MULTIPLE 02/26/2005 [facility] - normal - biopsies normal COLONOSCOPY W/BIOPSY SINGLE/MULTIPLE 09/24/2006 NORMAL CECUM, SMALL POLYP RECTUM - HYPERPLASTIC APPEARING COLONOSCOPY W/BIOPSY SINGLE/MULTIPLE 12/30/2007 Normal visualized colon EGD 08/06/2020 EGD TRANSORAL BIOPSY SINGLE/MULTIPLE 09/24/2006 SMALL HIATAL HERNIA, MINIMAL GASTRITIS EGD TRANSORAL BIOPSY SINGLE/MULTIPLE 08/09/2008 mild duodenitis, esophagitis, small hiatal hernia EGD TRANSORAL BIOPSY SINGLE/MULTIPLE 04/28/2010 mild gastritis, esophagitis EGD TRANSORAL BIOPSY SINGLE/MULTIPLE 12/15/2016 gastritis, reflux esophagitis ESOPHAGOGASTRODUODENOSCOPY TRANSORAL DIAGNOSTIC 02/15/2018 EGD EYE SURGERY HX LAPAROSCOPY SURG CHOLECYSTECTOMY 06/02/2005 Cholecystectomy, lap LIG/TRNSXJ FLP TUBE ABDL/VAG APPR UNI/BI Tubal ligation NEUROPLASTY AND/TRANSPOS MEDIAN NRV CARPAL TUNNE Right 03/08/2015 Right CTR NEUROPLASTY AND/TRANSPOSITION ULNAR NERVE ELBOW Right 03/08/2015 Ulnar nerve decompression TOTAL ABDOMINAL HYSTERECT W/WO RMVL TUBE OVARY 2001 Hysterectomy, JC, left oophorectomy ALLERGIES Patient has no known allergies. MEDICATIONS vitamin b complex capsuleTake 1 capsule by mouth once daily.Disp: 30 capsuleRfl: 5 cholecalciferol, Vitamin D3, (VITAMIN D3) 1,250 mcg (50,000 unit) cap capsuleTake 1 capsule by mouth one time a week.Disp: 4 capsuleRfl: 1 estradiol (ESTRACE) 0.01 % (0.1 mg/gram) vaginal creamUse 1g vaginally 2-3 times per week.Disp: 60 gRfl: 11 FLUoxetine (PROZAC) 40 mg capsuleTake 1 capsule by mouth every morning.Disp: 30 capsuleRfl: 5 losartan (COZAAR) 50 mg tabletTake 1 tablet by mouth once daily.Disp: 30 tabletRfl: 5 omeprazole (PRILOSEC) 20 mg capsuleTake 1 capsule by mouth daily before breakfast. 1/2 hr before meal.Disp: 30 capsuleRfl: 5 cholestyramine-sucrose (QUESTRAN) 4 gram powderTake 4 g by mouth three times daily with meals.Disp: 348.6 gRfl: 5 levothyroxine (LEVOXYL) 150 mcg tabletTake 1 tablet by mouth once daily. Take on empty stomach. For Thyroid.Disp: 30 tabletRfl: 5 diclofenac (VOLTAREN ARTHRITIS PAIN) 1 % topical gelApply 2 g to affected area four times daily.Disp: 100 gRfl: 0 acyclovir (ZOVIRAX) 400 mg tabletTAKE 1 TABLET BY MOUTH TWICE A DAYDisp: 60 tabletRfl: 11 buPROPion XL (WELLBUTRIN XL) 300 mg 24 hr tabletTake 1 tablet by mouth once daily.Disp: 90 tabletRfl: 3 buPROPion XL (WELLBUTRIN XL) 150 mg 24 hr tabletTake 1 tablet by mouth once daily.Disp: 90 tabletRfl: 3 simvastatin (ZOCOR) 80 mg tabletTake 1 tablet by mouth daily at bedtime.Disp: 30 tabletRfl: 11 sucralfate (CARAFATE) 1 gram tabletTake 1 tablet by mouth four times daily.Disp: 60 tabletRfl: 1 ondansetron orally disintegrating (ZOFRAN ODT) 4 mg disintegrating tabletTake 1 tablet by mouth every 8 hours as needed for Nausea/Vomiting.Disp: 60 tabletRfl: 1 benzonatate (TESSALON PERLE) 100 mg capsuleTake 2 capsules by mouth three times daily as needed.Disp: 30 capsuleRfl: 0 FAMILY HISTORY Problem Relation Age of Onset Cancer Mother RENAL CANCER Arthritis Mother Heart Father Heart Maternal Grandmother Diabetes Maternal Grandmother Heart Maternal Grandfather Diabetes Maternal Grandfather Heart Paternal Grandmother Alzheimer's Disease Paternal Grandfather Heart Paternal Grandfather Diabetes Paternal Grandfather Diabetes Maternal Uncle Soci (more content not included)... [facility] 06-09-2022 History of Present illness Narrative Subjective HPI HPI Manuelito Gordon is a 56 year old female who presents today for CC of st, cough, congestion, h/a. This started 4 days ago. Has tried otc medication for relief. Symptoms are worsened by nothing. Risk factors sick exposures at home. nonsmoker. .Patient presents with: Nasal Congestion: drainage, cough, sore throat and headache x 4 days PAST MEDICAL HISTORY Diagnosis Date ABDOMINAL PAIN EPIGASTRIC 07/24/2008 Abdominal pain, unspecified site Abnormal glandular Papanicolaou smear of cervix 2007 Abn. Pap smear (cervix) Anxiety and depression Atrophic vaginitis 06/29/2013 Cancer (HCC) Chronic daily headache Diaphragmatic hernia without mention of obstruction or gangrene Diarrhea Esophagitis, unspecified Genital herpes High blood pressure High cholesterol Low back pain Multiple thyroid nodules ANTOLIN (obstructive sleep apnea) 2011 does not wear CPAP Osteopenia 2011 Other and unspecified noninfectious gastroenteritis and colitis(558.9) Pure hypercholesterolemia Sleep-disordered breathing Snoring Unspecified essential hypertension PAST SURGICAL HISTORY Procedure Laterality Date DELIVERY ONLY , low cervical DELIVERY ONLY , low cervical COLONOSCOPY FLX DX W/COLLJ SPEC WHEN PFRMD 07/06/2017 Colonoscopy COLONOSCOPY FLX DX W/COLLJ SPEC WHEN PFRMD 02/15/2018 Colonoscopy COLONOSCOPY W/BIOPSY SINGLE/MULTIPLE 02/26/2005 [facility] - normal - biopsies normal COLONOSCOPY W/BIOPSY SINGLE/MULTIPLE 09/24/2006 NORMAL CECUM, SMALL POLYP RECTUM - HYPERPLASTIC APPEARING COLONOSCOPY W/BIOPSY SINGLE/MULTIPLE 12/30/2007 Normal visualized colon EGD 08/06/2020 EGD TRANSORAL BIOPSY SINGLE/MULTIPLE 09/24/2006 SMALL HIATAL HERNIA, MINIMAL GASTRITIS EGD TRANSORAL BIOPSY SINGLE/MULTIPLE 08/09/2008 mild duodenitis, esophagitis, small hiatal hernia EGD TRANSORAL BIOPSY SINGLE/MULTIPLE 04/28/2010 mild gastritis, esophagitis EGD TRANSORAL BIOPSY SINGLE/MULTIPLE 12/15/2016 gastritis, reflux esophagitis ESOPHAGOGASTRODUODENOSCOPY TRANSORAL DIAGNOSTIC 02/15/2018 EGD EYE SURGERY HX LAPAROSCOPY SURG CHOLECYSTECTOMY 06/02/2005 Cholecystectomy, lap LIG/TRNSXJ FLP TUBE ABDL/VAG APPR UNI/BI Tubal ligation NEUROPLASTY &/TRANSPOS MEDIAN NRV CARPAL TUNNE Right 03/08/2015 Right CTR NEUROPLASTY &/TRANSPOSITION ULNAR NERVE ELBOW Right 03/08/2015 Ulnar nerve decompression TOTAL ABDOMINAL HYSTERECT W/WO RMVL TUBE OVARY 2001 Hysterectomy, JC, left oophorectomy ALLERGIES Patient has no known allergies. MEDICATIONS vitamin b complex capsule^Take 1 capsule by mouth once daily.^Disp: 30 capsule^Rfl: 5 cholecalciferol, Vitamin D3, (VITAMIN D3) 1,250 mcg (50,000 unit) cap capsule^Take 1 capsule by mouth one time a week.^Disp: 4 capsule^Rfl: 1 estradiol (ESTRACE) 0.01 % (0.1 mg/gram) vaginal cream^Use 1g vaginally 2-3 times per week.^Disp: 60 g^Rfl: 11 FLUoxetine (PROZAC) 40 mg capsule^Take 1 capsule by mouth every morning.^Disp: 30 capsule^Rfl: 5 losartan (COZAAR) 50 mg tablet^Take 1 tablet by mouth once daily.^Disp: 30 tablet^Rfl: 5 omeprazole (PRILOSEC) 20 mg capsule^Take 1 capsule by mouth daily before breakfast. 1/2 hr before meal.^Disp: 30 capsule^Rfl: 5 cholestyramine-sucrose (QUESTRAN) 4 gram powder^Take 4 g by mouth three times daily with meals.^Disp: 348.6 g^Rfl: 5 levothyroxine (LEVOXYL) 150 mcg tablet^Take 1 tablet by mouth once daily. Take on empty stomach. For Thyroid.^Disp: 30 tablet^Rfl: 5 diclofenac (VOLTAREN ARTHRITIS PAIN) 1 % topical gel^Apply 2 g to affected area four times daily.^Disp: 100 g^Rfl: 0 acyclovir (ZOVIRAX) 400 mg tablet^TAKE 1 TABLET BY MOUTH TWICE A DAY^Disp: 60 tablet^Rfl: 11 buPROPion XL (WELLBUTRIN XL) 300 mg 24 hr tablet^Take 1 tablet by mouth once daily.^Disp: 90 tablet^Rfl: 3 buPROPion XL (WELLBUTRIN XL) 150 mg 24 hr tablet^Take 1 tablet by mouth once daily.^Disp: 90 tablet^Rfl: 3 simvastatin (ZOCOR) 80 mg tablet^Take 1 tablet by mouth daily at bedtime.^Disp: 30 tablet^Rfl: 11 sucralfate (CARAFATE) 1 gram tablet^Take 1 tablet by mouth four times daily.^Disp: 60 tablet^Rfl: 1 ondansetron orally disintegrating (ZOFRAN ODT) 4 mg disintegrating tablet^Take 1 tablet by mouth every 8 hours as needed for Nausea/Vomiting.^Disp: 60 tablet^Rfl: 1 benzonatate (TESSALON PERLE) 100 mg capsule^Take 2 capsules by mouth three times daily as needed.^Disp: 30 capsule^Rfl: 0 FAMILY HISTORY Problem Relation Age of Onset Cancer Mother RENAL CANCER Arthritis Mother Heart Father Heart Maternal Grandmother Diabetes Maternal Grandmother Heart Maternal Grandfather Diabetes Maternal Grandfather Heart Paternal Grandmother Alzheimer's Disease Paternal Grandfather Heart Paternal Grandfather Diabetes Paternal Grandfather Diabetes Maternal Uncle Social History Tobacco Use Smoking status: Never Smokeless tobacco: Never Vaping Use Vaping Use: Never used Substance Use Topics Alcohol use: No Drug use: No ROS Objective Blood pressure 110/72, pulse 98, temperature 37.2 C (98.9 F), resp. rate 16, weight 80.3 kg (177 lb), SpO2 97 %. Physical Exam Constitutional: General: She is not in acute distress. Appearance: She is not toxic-appearing or diaphoretic. HENT: Head: Normocephalic and atraumatic. Nose: Nose normal. Mouth/Throat: Pharynx: Uvula midline. No pharyngeal swelling, oropharyngeal exudate, posterior oropharyngeal erythema or uvula swelling. Eyes: General: Lids are normal. No scleral icterus. Right eye: No discharge. Left eye: No discharge. Conjunctiva/sclera: Conjunctivae normal. Pupils: Pupils are equal, round, and reactive to light. Neck: Trachea: Trachea normal. Cardiovascular: Rate and Rhythm: Normal rate and regular rhythm. Heart sounds: Normal heart sounds. Pulmonary: Effort: Pulmonary effort is normal. Breath sounds: Normal breath sounds. Musculoskeletal: Cervical back: Normal range of motion and neck supple. Lymphadenopathy: Cervical: No cervical adenopathy. Right cervical: No superficial cervical adenopathy. Left cervical: No superficial cervical adenopathy. Skin: Findings: No rash. Neurological: Mental Status: She is alert and oriented to person, place, and time. ASSESSMENT/PLAN: 1. URI, acute - ICD9: 465.9, ICD10: J06.9 (primary diagnosis) - Discussed viral etiology and rationale for treatment. - Symptomatic treatment with prn analgesia - Supportive care with fluids and rest - Follow up in 3-5 days if symptoms persist or sooner if worsening of symptoms - COVID WITH FLUA+B, ROUTINE - BENZONATATE 100 MG CAPSULE 2. Sore throat - ICD9: 462, ICD10: J02.9 Negative testing, viral - STREP A MOLECULAR (POC) Raad May APRN.STEFF documented in this encounter [facility] 06-09-2022 Instructions Raad May APRN.STEFF - 06/09/2022 1:06 PM EST RESPIRATORY INFECTION GENERAL INFORMATION: An upper respiratory tract infection, or cold, is a viral infection of the airway passages. It can be caused by any one of almost 200 different viruses. Common symptoms include a runny or stuffy nose, sneezing, watery eyes, sore throat, cough, and slight fever. Colds are contagious, especially during the first 3 or 4 days and cannot be cured by antibiotics. They are spread by coughs, sneezes, and direct contact, especially [id number]. A respiratory tract infection usually clears up in a few days, but some people may be sick for a week or two. INSTRUCTIONS: 1. Be careful not to blow your nose too hard because this may cause a nosebleed. 2. Use a cool-mist humidifier (vaporizer) to increase air moisture. This will make it easier for you to breathe. Do not use hot steam. 3. Rest as much as possible and get plenty of sleep. 4. Wash your hands often, especially after you blow your nose. Cover your mouth and nose with a tissue when you sneeze or cough. 5. Drink plenty of clear fluids (8 glasses a day) such as water, fruit juice, tea, clear soups, and carbonated beverages. CONTACT YOUR DOCTOR IF : 1. Your fever lasts more than 3 days. 2. You have a sore throat that gets worse or you see white or yellow spots in your throat. 3. Your cough gets worse or lasts more than 10 days. 4. You develop a rash anywhere on your skin. 5. You have an earache or a headache. 6. You have thick greenish or yellowish discharge from your nose. RETURN IMMEDIATELY IF: 1. You cough up thick yellow, green, coe, or bloody sputum. 2. You have difficulty breathing, pain in your chest, or your skin or nails look coe or blue. 3. You have shaking chills or a temperature over 102 F (39 C). documented in this encounter [facility] 05-27-2022 Miscellaneous Notes Patient has been identified by name and date of : Pharmacy phones for refill(s): Requested Prescriptions Pending Prescriptions Disp Refills vitamin b complex capsule 30 capsule 5 Sig: Take 1 capsule by mouth once daily. Date of last office visit in primary care: 02/03/2022, no future appt scheduled Last 2 Encounter Wt Readings: Date: Wt: 02/03/2022 77.1 kg (170 lb) 12/15/2021 77.6 kg (171 lb) Previous labs/tests for medication: Not applicable Please advise. Thank you. Silvana Snider LPN documented in this encounter [facility] 05-04-2022 Miscellaneous Notes Last Office Visit: 02/03/2022 Future Office Visit: None Requested Prescriptions Pending Prescriptions Disp Refills cholecalciferol, Vitamin D3, (VITAMIN D3) 1,250 mcg (50,000 unit) cap capsule 4 capsule 1 Sig: Take 1 capsule by mouth one time a week. Date of Last Labs: 04/14/2021 documented in this encounter [facility] 04-02-2022 Miscellaneous Notes Last Office Visit: 02/03/2022 Future Office Visit: None Requested Prescriptions Pending Prescriptions Disp Refills estradiol (ESTRACE) 0.01 % (0.1 mg/gram) vaginal cream 60 g 11 Sig: Use 1g vaginally 2-3 times per week. documented in this encounter [facility] 03-06-2022 Miscellaneous Notes Last Office Visit: 02/03/2022 Future Office Visit: None Requested Prescriptions Pending Prescriptions Disp Refills FLUoxetine (PROZAC) 40 mg capsule 30 capsule 5 Sig: Take 1 capsule by mouth every morning. cholecalciferol, Vitamin D3, (VITAMIN D3) 1,250 mcg (50,000 unit) cap capsule 4 capsule 1 Sig: Take 1 capsule by mouth one time a week. Date of Last Labs 12/15/2021 documented in this encounter [facility] 02-06-2022 Miscellaneous Notes Patient has been identified by name and date of : Yes Pharmacy phones for refill(s): Requested Prescriptions Pending Prescriptions Disp Refills losartan (COZAAR) 50 mg tablet 30 tablet 5 Sig: Take 1 tablet by mouth once daily. omeprazole (PRILOSEC) 20 mg capsule 30 capsule 5 Sig: Take 1 capsule by mouth daily before breakfast. 1/2 hr before meal. Date of last office visit in primary care: 02/03/22 Last 2 Encounter Wt Readings: Date: Wt: 02/03/2022 77.1 kg (170 lb) 12/15/2021 77.6 kg (171 lb) Previous labs/tests for medication: Not applicable Please advise. Thank you. Kristy Vinson LPN documented in this encounter [facility] 02-05-2022 Miscellaneous Notes Please assist her to schedule with GI. They will then make the determination and assist with scheduling for possible colonoscopy. The following approved medication requests have been transmitted electronically. Requested Prescriptions Signed Prescriptions Disp Refills cholestyramine-sucrose (QUESTRAN) 4 gram powder 348.6 g 5 Sig: Take 4 g by mouth three times daily with meals. Authorizing Provider: IMELDA ELIZALDE APRN.CNP Pt informed, verbalized understanding. Pt reports she would like to proceed with colonoscopy and gastro. Please send script to Lisa. Please let Manuelito know that we received her lab results. Her testing does show that at sometime in the past, she had an h. Pylori infection, but does not have one currently. Celiac screen is negative. Looking at Dr. Dasilva's note from 2 days ago, she is suggesting we consider a repeat colonoscopy and follow up with gastro. Also try using cholestyramine, which can be helpful for diarrhea for people that have had their gallbaldder removed. Please let me know what she would like to do. Imelda Elizalde APRN.CNP documented in this encounter [facility] 02-04-2022 History of Present illness Narrative CC: Manuelito Gordon is a 56 year old female who presents to the office for follow up HPI: Seen in office last on 04/14/21 Diagnosed with covid 19 infection 1 month ago, has had some fatigue, emotional, hot flashes/sweats and leg tingling/paresthesia symptoms since this infection. The fevers and chills and nausea/vomiting/diarrhea did resolve. Does states that her mood has been more up and down , but has been also working a lot of hours at the [email or web address]. Is considering applying for a different job with less stress. No SI or HI. Urinary urgency/frequency, occurring mostly in the evening, no fevers or chills or flank pain or hematuria. Symptoms for a few weeks She had labs, urinalysis completed which showed vitamin D deficiency, low normal vitamin B12 levels and the pre diabetes a1c. At OFFICE VISIT on 07/14/21 She is taking the vitamin D supplements, doesn't think her pharmacy is giving her the vitamin B12 supplements. Still feels she is struggling with some fatigue and shortness of breath since having covid 19 infection in Feb 2021. Hasn't had any recent testing. Symptoms are typically at rest but does notice worsening shortness of breath with exertion, no chest pain or pressure or palpitations or syncope or dizziness. Occasional LH symptoms. Admits to poor diet and lack of exercise as well- still trying to raise her 3 grandchildren that don't have involved parents. Tearful during office visit today, does have struggles daily with trying to keep her grandchildren in line and feels this is a big stressor on her. She denies SI or HI concerns. Also has bloating and feels her stools float, she is concerned about pancreatic issues. No abdominal pain but does feel upper abdominal pressure when she eats. At follow up on 12/15/21 Tearful during office visit today, does have struggles daily with trying to keep her grandchildren in line and feels this is a big stressor on her. She denies SI or HI concerns. Feels all her symptoms have been worse since recently having covid 19 infection. Bilateral ankle pain, worse at the end of the day at work, works standing all day at the [employer]. Feels tight and stiff and swollen. Worse since recently having covid 19 infection. No known injuries. No known history of gout or inflammatory arthritis. No rashes or fevers or chills Right wrist pain and thumb pain, worse over the last few weeks. 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 No known injuries. No use of any NSAIDs or ice or heat or brace. + fatigue symptoms that are significant Currently Fatigue, was found to have vitamin D and B12 deficiencies. She hasn't been regularly taking the vitamin supplements that she was prescribed. Also has had a lot of continued stress with raising her grandchildren and feels this also affects her. Is taking the Prozac and the wellbutrin with benefit to help with coping with these stressors. No SI or HI. Is still working late hours at the [employer] and hoping to change to day shift. Loose stools, diarrhea or non formed, history of cholecystectomy. Worse in the last few months, no bloody or mucous stools. No foreign travel. No nausea or vomiting. Appetite is overall okay, mildly decreased. PAST MEDICAL HISTORY Diagnosis Date ABDOMINAL PAIN EPIGASTRIC 07/24/2008 Abdominal pain, unspecified site Abnormal glandular Papanicolaou smear of cervix 2007 Abn. Pap smear (cervix) Anxiety and depression Atrophic vaginitis 06/29/2013 Cancer (HCC) Chronic daily headache Diaphragmatic hernia without mention of obstruction or gangrene Diarrhea Esophagitis, unspecified Genital herpes High blood pressure High cholesterol Low back pain Multiple thyroid nodules ANTOLIN (obstructive sleep apnea) 2011 does not wear CPAP Osteopenia 2012 Other and unspecified noninfectious gastroenteritis and colitis(558.9) Pure hypercholesterolemia Sleep-disordered breathing Snoring Unspecified essential hypertension PAST SURGICAL HISTORY Procedure Laterality Date DELIVERY ONLY , low cervical DELIVERY ONLY , low cervical COLONOSCOPY FLX DX W/COLLJ SPEC WHEN PFRMD 07/06/2017 Colonoscopy COLONOSCOPY FLX DX W/COLLJ SPEC WHEN PFRMD 02/15/2018 Colonoscopy COLONOSCOPY W/BIOPSY SINGLE/MULTIPLE 02/26/2005 Raz - normal - biopsies normal COLONOSCOPY W/BIOPSY SINGLE/MULTIPLE 09/24/2006 NORMAL CECUM, SMALL POLYP RECTUM - HYPERPLASTIC APPEARING COLONOSCOPY W/BIOPSY SINGLE/MULTIPLE 12/30/2007 Normal visualized colon EGD 08/06/2020 EGD 08/06/2020 Dr.Jan EGD TRANSORAL BIOPSY SINGLE/MULTIPLE 09/24/2006 SMALL HIATAL HERNIA, MINIMAL GASTRITIS EGD TRANSORAL BIOPSY SINGLE/MULTIPLE 08/09/2008 mild duodenitis, esophagitis, small hiatal hernia EGD TRANSORAL BIOPSY SINGLE/MULTIPLE 04/28/2010 mild gastritis, esophagitis EGD TRANSORAL BIOPSY SINGLE/MULTIPLE 12/15/2016 gastritis, reflux esophagitis ESOPHAGOGASTRODUODENOSCOPY TRANSORAL DIAGNOSTIC 02/15/2018 EGD EYE SURGERY HX LAPAROSCOPY SURG CHOLECYSTECTOMY 06/02/2005 Cholecystectomy, lap LIG/TRNSXJ FLP TUBE ABDL/VAG APPR UNI/BI Tubal ligation NEUROPLASTY &/TRANSPOS MEDIAN NRV CARPAL TUNNE Right 03/08/2015 Right CTR NEUROPLASTY &/TRANSPOSITION ULNAR NERVE ELBOW Right 03/08/2015 Ulnar nerve decompression TOTAL ABDOMINAL HYSTERECT W/WO RMVL TUBE OVARY 2000 Hysterectomy, JC, left oophorectomy Current Outpatient Medications Medication Sig cholecalciferol, Vitamin D3, (VITAMIN D3) 1,250 mcg (50,000 unit) cap capsule TAKE 1 CAPSULE BY MOUTH EVERY WEEK diclofenac, EC, (VOLTAREN) 75 mg EC tablet Take 1 tablet by mouth twice daily. vitamin b complex capsule Take 1 capsule by mouth once daily. levothyroxine (LEVOXYL) 150 mcg tablet Take 1 tablet by mouth once daily. Take on empty stomach. For Thyroid. diclofenac (VOLTAREN ARTHRITIS PAIN) 1 % topical gel Apply 2 g to affected area four times daily. acyclovir (ZOVIRAX) 400 mg tablet TAKE 1 TABLET BY MOUTH TWICE A DAY FLUoxetine (PROZAC) 40 mg capsule TAKE 1 CAPSULE BY MOUTH EVERY MORNING omeprazole (PRILOSEC) 20 mg capsule Take 1 capsule by mouth daily before breakfast. 1/2 hr before meal. losartan (COZAAR) 50 mg tablet Take 1 tablet by mouth once daily. buPROPion XL (WELLBUTRIN XL) 300 mg 24 hr tablet Take 1 tablet by mouth once daily. buPROPion XL (WELLBUTRIN XL) 150 mg 24 hr tablet Take 1 tablet by mouth once daily. simvastatin (ZOCOR) 80 mg tablet Take 1 tablet by mouth daily at bedtime. estradiol (ESTRACE) 0.01 % (0.1 mg/gram) vaginal cream Use 1g vaginally 2-3 times per week. sucralfate (CARAFATE) 1 gram tablet Take 1 tablet by mouth four times daily. ondansetron orally disintegrating (ZOFRAN ODT) 4 mg disintegrating tablet Take 1 tablet by mouth every 8 hours as needed for Nausea/Vomiting. Current Facility-Administered Medications Medication Dose Route Frequency perflutren lipid microspheres 1.3 mL in NaCl (PF) 0.9% 10 mL injection (DEFINITY) INTRAVENOUS DIRECTED PRN sodium chloride 0.9 % (flush) 10 mL (BD POSIFLUSH) 10 mL INTRAVENOUS DIRECTED PRN ALLERGIES No Known Allergies Social History Tobacco Use Smoking status: Never Smokeless tobacco: Never Vaping Use Vaping Use: Never used Substance Use Topics Alcohol use: No Drug use: No ROS: See HPI PE: BP 118/86 Pulse 59 Resp 18 Wt 170 lb (77.1kg) SpO2 97% Gen: A&OX3, NAD, non-toxic appearing HEENT: PERRLA, EOMs intact b/l, nares without drainage, pharynx without erythema, exudate, lesions, or drainage. Uvula midline. Neck: No LAD, no thyromegaly, no meningismus. CV: RRR, no murmur Lungs: CTA b/l, no wheezing Skin: No rashes, lesions, or wounds on exposed skin. Abd: overweight, NT, ND, normal BS, is bloated appearing ASSESSMENT/PLAN: 1. Loose stools - ICD9: 787.7, ICD10: R19.5 (primary diagnosis) Check stool studies, may need repeat colonoscopy for evaluation as well as follow up with Gastro. Can consider cholestyramine due to history of cholecystectomy - PANC ELASTASE, FECAL - FAT, FECAL QUAL - H PYLORI ABS, IGG AND IGA - CELIAC SCREEN WITH REFLEX 2. Bloating - ICD9: 787.3, ICD10: R14.0 See above 3. Fatigue, unspecified type - ICD9: 780.79, ICD10: R53.83 Chronic, needs to start vitamins 4. Situational stress - ICD9: V62.89, ICD10: F43.9 Chronic, secondary to family situation, no SI or HI Kai Dasilva DO Return if no improvement. Follow up with Kai Dasilva DO. To ER if develops chest pain, shortness of breath. Discussed risks, benefits, alternatives, and potential side effects of medications. Patient/Guardian expressed understanding and agreed with the plan. See patient instructions. Kai Dasilva DO [address] [place] [address] documented in this encounter [facility] 01-12-2022 Miscellaneous Notes Closed 01/12/2022 10:27 AM Case ID: [id number] Close reason: Prior Authorization not required for patient/medication Note from payer: No Authorization Required.No authorization is required for the medication requested. Payer: [employer] Electronic PA completed for voltaren. documented in this encounter [facility] 01-09-2022 Miscellaneous Notes Patient has been identified by name and date of : Yes Pharmacy phones for refill(s): Requested Prescriptions Pending Prescriptions Disp Refills diclofenac, EC, (VOLTAREN) 75 mg EC tablet 60 tablet 5 Sig: Take 1 tablet by mouth twice daily. Date of last office visit with pcp: 12/15/2021 Future appt: 02/03/2022 Last 2 Encounter Wt Readings: Date: Wt: 12/15/2021 77.6 kg (171 lb) 12/02/2021 77 kg (169 lb 12.8 oz) Previous labs/tests for medication: Blood Pressure: BUN (mg/dL) Date Value 12/15/2021 15 04/14/2021 13 Sodium (mmol/L) Date Value 12/15/2021 138 04/14/2021 141 Last 1 Encounter BP Readings: Date: BP: 12/15/2021 120/80 Liver Function: ALT (U/L) Date Value 12/15/2021 12 04/14/2021 9 AST (U/L) Date Value 12/15/2021 20 04/14/2021 19 Please advise. Thank you. Stephani Grissom, RN documented in this encounter [facility] 01-09-2022 Miscellaneous Notes Last office visit: 12/15/54 Next appointment scheduled: 02/03/22 Last labs: 12/15/21 Pharmacy calls in requesting the following refill(s): Requested Prescriptions Pending Prescriptions Disp Refills cholecalciferol, Vitamin D3, (VITAMIN D3) 1,250 mcg (50,000 unit) cap capsule [Pharmacy Med Name: Vitamin D3 1.25 MG(59497 UT) CAPS] 4 capsule 1 Sig: TAKE 1 CAPSULE BY MOUTH EVERY WEEK documented in this encounter [facility] 01-05-2022 Miscellaneous Notes January 05, 2022 PID: [id number] Manuelito Gordon [address] [place] [address] [place] [address] Dear Evan, We are pleased to inform you that the results of your recent breast imaging exam on 01/05/2022 are normal. Early detection of cancer is very important. We also understand recommendations regarding breast cancer screening are controversial. Please discuss with your primary care provider which strategy is best for you and whether a mammogram is right for you. Your imaging studies and report will be kept on file at [facility] as part of your permanent medical record and are available for your continuing care. Thank you for allowing us to help in meeting your health care needs. Sincerely, Dr. Jesus Interpreting Radiologist [facility] (Normal over 40) documented in this encounter [facility] 01-05-2022 History of Present illness Narrative Radiology Service Progress Note PATIENT NAME: Manuelito Gordon DATE OF SERVICE: January 05, 2022 TIME: 3:07 PM PATIENT IDENTITY VERIFICATION COMPLETED USING TWO (2) IDENTIFIERS: Name and Date of confirmed by patient verbally. FALL SCREENING: Has the patient had 2 falls in the last year or 1 fall with injury or currently using an Ambulatory Assistive Device (Walker, Cane, Wheelchair, Crutches, etc.)? No PATIENT GENDER DATA: Female. status: : No status: NO. PATIENT RELEVANT IMPLANT DATA REVIEWED: Not Applicable RADIOLOGY DEPARTMENT: Mammography PERIPHERAL IV DATA: Not applicable SIGNED BY: Paulette Mcmahon RT(R) January 05, 2022 3:07 PM documented in this encounter [facility] 12-22-2021 Miscellaneous Notes Patient notified and verbalized understanding Joanne Navarro Cma Please inform patient that her labs show that her vitamin D levels are low. She needs to increase her vitamin D3 supplement by an extra 1000 international unit(s) a day supplement of vitamin D3 with a meal. Also her vitamin B12 levels are low normal. Would recommend that she is taking 5000 mcg a day of vitamin B12 which would likely also help her fatigue Kai Dasilva DO documented in this encounter [facility] 12-16-2021 History of Present illness Narrative CC: Manuelito Gordon is a 55 year old female who presents to the office for follow up HPI: Seen in office last on 04/14/21 Diagnosed with covid 19 infection 1 month ago, has had some fatigue, emotional, hot flashes/sweats and leg tingling/paresthesia symptoms since this infection. The fevers and chills and nausea/vomiting/diarrhea did resolve. Does states that her mood has been more up and down , but has been also working a lot of hours at the [email or web address]. Is considering applying for a different job with less stress. No SI or HI. Urinary urgency/frequency, occurring mostly in the evening, no fevers or chills or flank pain or hematuria. Symptoms for a few weeks She had labs, urinalysis completed which showed vitamin D deficiency, low normal vitamin B12 levels and the pre diabetes a1c. At last OFFICE VISIT on 07/14/21 She is taking the vitamin D supplements, doesn't think her pharmacy is giving her the vitamin B12 supplements. Still feels she is struggling with some fatigue and shortness of breath since having covid 19 infection in Feb 2021. Hasn't had any recent testing. Symptoms are typically at rest but does notice worsening shortness of breath with exertion, no chest pain or pressure or palpitations or syncope or dizziness. Occasional LH symptoms. Admits to poor diet and lack of exercise as well- still trying to raise her 3 grandchildren that don't have involved parents. Tearful during office visit today, does have struggles daily with trying to keep her grandchildren in line and feels this is a big stressor on her. She denies SI or HI concerns. Also has bloating and feels her stools float, she is concerned about pancreatic issues. No abdominal pain but does feel upper abdominal pressure when she eats. Currently Tearful during office visit today, does have struggles daily with trying to keep her grandchildren in line and feels this is a big stressor on her. She denies SI or HI concerns. Feels all her symptoms have been worse since recently having covid 19 infection. Bilateral ankle pain, worse at the end of the day at work, works standing all day at the [employer]. Feels tight and stiff and swollen. Worse since recently having covid 19 infection. No known injuries. No known history of gout or inflammatory arthritis. No rashes or fevers or chills Right wrist pain and thumb pain, worse over the last few weeks. 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 No known injuries. No use of any NSAIDs or ice or heat or brace. + fatigue symptoms that are significant PAST MEDICAL HISTORY Diagnosis Date ABDOMINAL PAIN EPIGASTRIC 07/24/2008 Abdominal pain, unspecified site Abnormal glandular Papanicolaou smear of cervix 2007 Abn. Pap smear (cervix) Anxiety and depression Atrophic vaginitis 06/29/2013 Cancer (HCC) Chronic daily headache Diaphragmatic hernia without mention of obstruction or gangrene Diarrhea Esophagitis, unspecified Genital herpes High blood pressure High cholesterol Low back pain Multiple thyroid nodules ANTOLIN (obstructive sleep apnea) 2011 does not wear CPAP Osteopenia 2012 Other and unspecified noninfectious gastroenteritis and colitis(558.9) Pure hypercholesterolemia Sleep-disordered breathing Snoring Unspecified essential hypertension PAST SURGICAL HISTORY Procedure Laterality Date DELIVERY ONLY , low cervical DELIVERY ONLY , low cervical COLONOSCOPY FLX DX W/COLLJ SPEC WHEN PFRMD 07/06/2017 Colonoscopy COLONOSCOPY FLX DX W/COLLJ SPEC WHEN PFRMD 02/15/2018 Colonoscopy COLONOSCOPY W/BIOPSY SINGLE/MULTIPLE 02/26/2005 [facility] - normal - biopsies normal COLONOSCOPY W/BIOPSY SINGLE/MULTIPLE 09/24/2006 NORMAL CECUM, SMALL POLYP RECTUM - HYPERPLASTIC APPEARING COLONOSCOPY W/BIOPSY SINGLE/MULTIPLE 12/30/2007 Normal visualized colon EGD 08/06/2020 EGD 08/06/2020 EGD TRANSORAL BIOPSY SINGLE/MULTIPLE 09/24/2006 SMALL HIATAL HERNIA, MINIMAL GASTRITIS EGD TRANSORAL BIOPSY SINGLE/MULTIPLE 08/09/2008 mild duodenitis, esophagitis, small hiatal hernia EGD TRANSORAL BIOPSY SINGLE/MULTIPLE 04/28/2010 mild gastritis, esophagitis EGD TRANSORAL BIOPSY SINGLE/MULTIPLE 12/15/2016 gastritis, reflux esophagitis ESOPHAGOGASTRODUODENOSCOPY TRANSORAL DIAGNOSTIC 02/15/2018 EGD EYE SURGERY HX LAPAROSCOPY SURG CHOLECYSTECTOMY 06/02/2005 Cholecystectomy, lap LIG/TRNSXJ FLP TUBE ABDL/VAG APPR UNI/BI Tubal ligation NEUROPLASTY &/TRANSPOS MEDIAN NRV CARPAL TUNNE Right 03/08/2015 Right CTR NEUROPLASTY &/TRANSPOSITION ULNAR NERVE ELBOW Right 03/08/2015 Ulnar nerve decompression TOTAL ABDOMINAL HYSTERECT W/WO RMVL TUBE OVARY 2000 Hysterectomy, JC, left oophorectomy Current Outpatient Medications Medication Sig cholecalciferol, Vitamin D3, (VITAMIN D3) 1,250 mcg (50,000 unit) cap capsule TAKE 1 CAPSULE BY MOUTH EVERY WEEK acyclovir (ZOVIRAX) 400 mg tablet TAKE 1 TABLET BY MOUTH TWICE A DAY FLUoxetine (PROZAC) 40 mg capsule TAKE 1 CAPSULE BY MOUTH EVERY MORNING omeprazole (PRILOSEC) 20 mg capsule Take 1 capsule by mouth daily before breakfast. 1/2 hr before meal. losartan (COZAAR) 50 mg tablet Take 1 tablet by mouth once daily. buPROPion XL (WELLBUTRIN XL) 300 mg 24 hr tablet Take 1 tablet by mouth once daily. buPROPion XL (WELLBUTRIN XL) 150 mg 24 hr tablet Take 1 tablet by mouth once daily. vitamin b complex capsule Take 1 capsule by mouth once daily. simvastatin (ZOCOR) 80 mg tablet Take 1 tablet by mouth daily at bedtime. estradiol (ESTRACE) 0.01 % (0.1 mg/gram) vaginal cream Use 1g vaginally 2-3 times per week. sucralfate (CARAFATE) 1 gram tablet Take 1 tablet by mouth four times daily. ondansetron orally disintegrating (ZOFRAN ODT) 4 mg disintegrating tablet Take 1 tablet by mouth every 8 hours as needed for Nausea/Vomiting. levothyroxine (LEVOXYL) 150 mcg tablet Take 1 tablet by mouth once daily. Take on empty stomach. For Thyroid. diclofenac (VOLTAREN ARTHRITIS PAIN) 1 % topical gel Apply 2 g to affected area four times daily. predniSONE (DELTASONE) 10 mg tablet Take 4 tabs daily x 3 days, then 3 tabs x 3 days, 2 tabs x 3 days, then 1 tab x3 days with food. Current Facility-Administered Medications Medication Dose Route Frequency perflutren lipid microspheres 1.3 mL in NaCl (PF) 0.9% 10 mL injection (DEFINITY) INTRAVENOUS DIRECTED PRN sodium chloride 0.9 % (flush) 10 mL (BD POSIFLUSH) 10 mL INTRAVENOUS DIRECTED PRN ALLERGIES No Known Allergies Social History Tobacco Use Smoking status: Never Smokeless tobacco: Never Vaping Use Vaping Use: Never used Substance Use Topics Alcohol use: No Drug use: No ROS: See HPI PE: BP 120/80 Pulse 64 Temp (Src) 98.1 (Left Tympanic) Resp 16 Wt 171 lb (77.6kg) Gen: A&OX3, NAD, non-toxic appearing HEENT: PERRLA, EOMs intact b/l, nares without drainage, pharynx without erythema, exudate, lesions, or drainage. Uvula midline. Neck: No LAD, no thyromegaly, no meningismus. CV: RRR, no murmur Lungs: CTA b/l, no wheezing Skin: No rashes, lesions, or wounds on exposed skin. Discomfort and mild warmth b/l ankles with reduced ROM due to discomfort. No obvious signs of infection or skin lesions Right thumb with TTP over MCP joint and base, + Jeanmarie's testing, Right wrist with otherwise normal ROM, no obvious deformities. 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 Acute bilateral ankle pain - ICD9: 719.47, 338.19, ICD10: M25.571, M25.572 (primary diagnosis) Labs as ordered, consider ankle bracing and xrays in future. Use of voltaren topical. If doesn't improve then consider Software Test Manager opinion as d/w her today - DICLOFENAC 1 % TOPICAL GEL - C-REACTIVE PROTEIN (CRP) - GLADYS BLOOD - RHEUMATOID FACTOR BL - CCP ANTIBODY IGG - CBC + DIFF - COMP METABOLIC PANEL - TSH BLD - PREDNISONE 10 MG TABLET - URIC ACID BLOOD 2. Hypothyroidism, acquired - ICD9: 244.9, ICD10: E03.9 - Instructed patient on importance of taking on an empty stomach either first thing in the morning or at bedtime. Stable - Behavioral intervention, - Pharmacological intervention, and - Continue current medications - LEVOTHYROXINE 150 MCG TABLET - T4 FREE/FREE THYROX - T3 FREE BLD 3. Fatigue, unspecified type - ICD9: 780.79, ICD10: R53.83 See above, recheck labs - LEVOTHYROXINE 150 MCG TABLET - VITAMIN D 25 HYDROXY - VITAMIN B12 BLOOD 4. Right wrist pain - ICD9: 719.43, ICD10: M25.531 - check labs as ordered to determine if any concerns for inflammatory arthritis based on multi joint symptoms. Use of thumb spica splint bracing and topical voltaren and icing as d/w her today Okay for prednisone taper to see if helps symptoms - DICLOFENAC 1 % TOPICAL GEL - C-REACTIVE PROTEIN (CRP) - GLADYS BLOOD - RHEUMATOID FACTOR BL - CCP ANTIBODY IGG - CBC + DIFF - COMP METABOLIC PANEL - TSH BLD - PREDNISONE 10 MG TABLET - URIC ACID BLOOD 5. Chronic pain of right thumb - ICD9: 729.5, 338.29, ICD10: M79.644, G89.29 - check labs as ordered to determine if any concerns for inflammatory arthritis based on multi joint symptoms. Use of thumb spica splint bracing and topical voltaren and icing as d/w her today Okay for prednisone taper to see if helps symptoms - DICLOFENAC 1 % TOPICAL GEL - C-REACTIVE PROTEIN (CRP) - GLADYS BLOOD - RHEUMATOID FACTOR BL - CCP ANTIBODY IGG - CBC + DIFF - COMP METABOLIC PANEL - TSH BLD - WRIST SPLINT - THUMB SPICA - PREDNISONE 10 MG TABLET - URIC ACID BLOOD 6. Tenosynovitis, de Quervain - ICD9: 727.04, ICD10: M65.4 - check labs as ordered to determine if any concerns for inflammatory arthritis based on multi joint symptoms. Use of thumb spica splint bracing and topical voltaren and icing as d/w her today Okay for prednisone taper to see if helps symptoms - DICLOFENAC 1 % TOPICAL GEL - C-REACTIVE PROTEIN (CRP) - GLADYS BLOOD - RHEUMATOID FACTOR BL - CCP ANTIBODY IGG - CBC + DIFF - COMP METABOLIC PANEL - TSH BLD - WRIST SPLINT - THUMB SPICA - PREDNISONE 10 MG TABLET 7. History of COVID-19 - ICD9: V12.09, ICD10: Z86.16 - check labs as ordered to determine if any concerns for inflammatory arthritis based on multi joint symptoms. Use of thumb spica splint bracing and topical voltaren and icing as d/w her today Okay for prednisone taper to see if helps symptoms 8. Adjustment disorder with mixed anxiety and depressed mood - ICD9: 309.28, ICD10: F43.23 See above Kai Dasilva DO Return if no improvement. Follow up with Kai Dasilva DO. To ER if develops chest pain, shortness of breath Discussed risks, benefits, alternatives, and potential side effects of medications. Patient/Guardian expressed understanding and agreed with the plan. See patient instructions. Kai Dasilva DO [address] [place] [address] documented in this encounter [facility] 12-15-2021 Instructions Kai Dasilva DO - 12/15/2021 3:49 PM EDT Take Prednisone once a day in the morning with food for 12 days. Use the Voltaren 1% cream twice a day for thumb pain and then put on Thumb Spica Splint on hand. Wear this during the day at work and at night when sleeping. Get labs today drawn documented in this encounter [facility] 12-10-2021 History of Present illness Narrative Radiology Service Progress Note PATIENT NAME: Manuelito Gordon DATE OF SERVICE: December 10, 2021 TIME: 2:26 PM PATIENT IDENTITY VERIFICATION COMPLETED USING TWO (2) IDENTIFIERS: Name and Date of confirmed by patient verbally. FALL SCREENING: Has the patient had 2 falls in the last year or 1 fall with injury or currently using an Ambulatory Assistive Device (Walker, Cane, Wheelchair, Crutches, etc.)? No PATIENT GENDER DATA: Female. status: : No status: NO. PATIENT RELEVANT IMPLANT DATA REVIEWED: Not Applicable RADIOLOGY DEPARTMENT: Mammography PERIPHERAL IV DATA: Not applicable SIGNED BY: Lesia Petersen December 10, 2021 2:26 PM documented in this encounter [facility] 12-02-2021 Miscellaneous Notes Addended by: SAMANTHA LOPEZ on: 12/02/2021 02:23 PM Modules accepted: Orders documented in this encounter [facility] 12-02-2021 Instructions Samantha Lopez MD - 12/02/2021 1:50 PM EDT Calcium and Vitamin D Supplementation (from the National Institutes of Health Office of Dietary Supplements 2011) Calcium is required by the body for blood vessel, muscle, hormone and nerve functioning. Most of the body's calcium is stored in the bones and teeth where it supports structure and function. Bone is continuously broken down and reformed. When bone breakdown exceeds formation, especially in postmenopausal women, bone loss can increase the risk of osteoporosis and fractures. In addition to low calcium intake, women who smoke, have a family history of osteoporosis, are thin, or , or who take certain medications such as cancer chemotherapy, seizure mediations and steroids are at increased risk of osteoporosis. The calcium requirements in women change with age. The National Institutes of Health (NIH) recommends: 1000mg elemental calcium for premenopausal women age 19-50 1200mg elemental calcium for postmenopausal women and all women over 50 Milk, yogurt, and cheese are rich natural sources of calcium and are the major food contributors in the [place]. For example, 8oz of milk (whole, lowfat or skim) contains about 300mg calcium, 8oz of yogurt contains 415mg. Nondairy sources include salmon and sardines and vegetables, such as [place] cabbage, kale, and broccoli. Foods fortified with calcium include many fruit juices, tofu and cereals. For more food calcium content information, visit http://ods.od.nih.gov/factsheets/c alcium. Calcium supplements come in several different forms. Remember that the recommendations are for millgrams (mg) of elemental calcium which may be less than the total weight of the supplement. The amount of elemental calcium is required to be printed on the label. Calcium carbonate is the least expensive form. It must be taken on a full stomach to be properly absorbed. Some patients may experience gas or constipation. Calcium phosphate and calcium citrate may be taken either with or without food and tend to have less side effects but are generally more expensive. Because of its ability to neutralize stomach acid, calcium carbonate is found in some zxcd-glu-olmuayi antacid products, such as Tums and Rolaids . Depending on its strength, each chewable pill or softchew provides 200 to 400 mg of elemental calcium. The percentage of calcium absorbed depends on the total amount of elemental calcium consumed at one time. Absorption is highest in doses <500mg. So a woman who takes 1,000mg/day of calcium from supplements should split the dose and take 500mg at two separate times during the day. Too much calcium can cause kidney stones, constipation, difficulty absorbing other nutrients and calcium buildup in blood vessels. Women under 50 should not exceed 2500mg/day (2000mg/day for women over 50) of calcium from food and supplements. Excessive alcohol and caffeine intake can inhibit absorption of calcium. Calcium can reduce the absorption of some medications if taken at the same time of day (bisphosphonates, thyroid medication, Phenytoin and other seizure medications, some antibiotics and iron supplements). Vitamin D promotes calcium absorption in the gut and maintains adequate blood levels of calcium and phosphate for normal bone growth and bone remodeling. Vitamin D also helps regulate cell growth as well as nerve, muscle and immune system function. Vitamin D is produced in the skin as a result of ultraviolet sunlight rays and must be altered in the liver and kidney to become its active form. Recommended intake according to the National Institutes of Health is 600 International Units (IU) for girls and women ages 1-70 and 800 IU for women over 70. Very few foods in nature contain vitamin D. The flesh of fatty fish (such as salmon, tuna, and mackerel) and fish liver oils are among the best sources. Small amounts of vitamin D are found in beef liver, cheese, mushrooms and egg yolks. Most people meet at least some of their vitamin D needs through exposure to sunlight. Season, time of day, length of day, cloud cover, smog, skin melanin content, and sunscreen are among the factors that affect UV radiation exposure and vitamin D synthesis. Despite the importance of the sun for vitamin D synthesis, it is prudent to limit exposure of skin to sunlight and avoid tanning beds. UV radiation is a carcinogen responsible for most of the estimated 1.5 million skin cancers that occur annually in the [place]. Lifetime cumulative UV damage to skin is also responsible for some age-associated dryness and other cosmetic changes. In supplements and fortified foods, vitamin D is available in two forms, D2 (ergocalciferol) and D3 (cholecalciferol). The two are equivalent at normal supplement doses. For women who require high supplement doses because of vitamin D deficiency, D3 may work better to raise blood levels. Some medications can prevent proper absorption of Vitamin D. These include laxatives, corticosteroids like prednisone, the seizure drugs phenobarbital and phenytoin, the weight-loss drug orlistat ( Xenical and AlliTM) and the cholesterol-lowering drug cholestyramine (Questran , LoCholest , and Prevalite ). Talk to your doctor about adjusting your recommended daily vitamin D dosage if you take these medications. You should not exceed 4000 mg of vitamin D supplementation daily unless specifically prescribed by your doctor. 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 Manuelito is a 55 year old who presents for an annual gynecologic exam without complaints. Postmenopausal: Yes - s/p hyst Last Pap: 10/29/2020 normal HPV: N/A History of abnormal pap: Yes - normal since 2009 (had colpo 2007) Last mammogram: 2020 normal History of abnormal mammogram: Yes OB History T2 L2 SAB0 IAB0 Ectopic0 Multiple0 Live Births0 Comment: 2 sections [employer] History LMP: Hysterectomy Age at Menarche: Age at First : Age at Menopause: [employer] History Comments: Sexual Activity: Not Asked; Male; not asked; PT HAD HYSTERECTOMY Contraception: Surgical PAST MEDICAL HISTORY Diagnosis Date ABDOMINAL PAIN EPIGASTRIC 07/24/2008 Abdominal pain, unspecified site Abnormal glandular Papanicolaou smear of cervix 2007 Abn. Pap smear (cervix) Anxiety and depression Atrophic vaginitis 06/29/2013 Cancer (HCC) Chronic daily headache Diaphragmatic hernia without mention of obstruction or gangrene Diarrhea Esophagitis, unspecified Genital herpes High blood pressure High cholesterol Low back pain Multiple thyroid nodules ANTOLIN (obstructive sleep apnea) 2011 does not wear CPAP Osteopenia 2011 Other and unspecified noninfectious gastroenteritis and colitis(558.9) Pure hypercholesterolemia Sleep-disordered breathing Snoring Unspecified essential hypertension PAST SURGICAL HISTORY Procedure Laterality Date DELIVERY ONLY , low cervical DELIVERY ONLY , low cervical COLONOSCOPY FLX DX W/COLLJ SPEC WHEN PFRMD 07/06/2017 Colonoscopy COLONOSCOPY FLX DX W/COLLJ SPEC WHEN PFRMD 02/15/2018 Colonoscopy COLONOSCOPY W/BIOPSY SINGLE/MULTIPLE 02/26/2005 Raz - normal - biopsies normal COLONOSCOPY W/BIOPSY SINGLE/MULTIPLE 09/24/2006 NORMAL CECUM, SMALL POLYP RECTUM - HYPERPLASTIC APPEARING COLONOSCOPY W/BIOPSY SINGLE/MULTIPLE 12/30/2007 Normal visualized colon EGD 08/06/2020 EGD 08/06/2020 EGD TRANSORAL BIOPSY SINGLE/MULTIPLE 09/24/2006 SMALL HIATAL HERNIA, MINIMAL GASTRITIS EGD TRANSORAL BIOPSY SINGLE/MULTIPLE 08/09/2008 mild duodenitis, esophagitis, small hiatal hernia EGD TRANSORAL BIOPSY SINGLE/MULTIPLE 04/28/2010 mild gastritis, esophagitis EGD TRANSORAL BIOPSY SINGLE/MULTIPLE 12/15/2016 gastritis, reflux esophagitis ESOPHAGOGASTRODUODENOSCOPY TRANSORAL DIAGNOSTIC 02/15/2018 EGD EYE SURGERY HX LAPAROSCOPY SURG CHOLECYSTECTOMY 06/02/2005 Cholecystectomy, lap LIG/TRNSXJ FLP TUBE ABDL/VAG APPR UNI/BI Tubal ligation NEUROPLASTY &/TRANSPOS MEDIAN NRV CARPAL TUNNE Right 03/08/2015 Right CTR NEUROPLASTY &/TRANSPOSITION ULNAR NERVE ELBOW Right 03/08/2015 Ulnar nerve decompression TOTAL ABDOMINAL HYSTERECT W/WO RMVL TUBE OVARY Hysterectomy, JC, left oophorectomy VAGINAL HYSTERECTOMY FAMILY HISTORY Problem Relation Age of Onset Cancer Mother RENAL CANCER Arthritis Mother Heart Father Heart Maternal Grandmother Diabetes Maternal Grandmother Heart Maternal Grandfather Diabetes Maternal Grandfather Heart Paternal Grandmother Alzheimer's Disease Paternal Grandfather Heart Paternal Grandfather Diabetes Paternal Grandfather Diabetes Maternal Uncle SOCIAL HISTORY Social History Tobacco Use Smoking status: Never Smokeless tobacco: Never Vaping Use Vaping Use: Never used Substance Use Topics Alcohol use: No Drug use: No REVIEW OF SYSTEMS Abdomen: No abdominal pain, nausea, vomiting, diarrhea, or constipation. No bloating, early satiety, indigestion, or increased flatulence. Bladder: reports some urinary urgency & frequency - including at night.. She drinks a lot of tea during the day & drinks water at night before bed. Breast: No breast lumps, nipple d/c, overlying skin changes, redness or skin retraction Allergies and current medication updated:Yes EXAM: There were no vitals taken for this visit. GENERAL: pleasant, female in no apparent distress BREAST: soft, non-tender, no dominant mass, normal nipple-areolar complex, no lymphadenopathy, and no nipple discharge CHEST: Normal inspiratory effort ABDOMEN: soft, non-tender, and no masses PELVIC: external genitalia normal, no cervical lesions, normal appearing perineal body and perianal region, atrophic vagina BIMANUAL: no adnexal masses, non-tender, and uterus surgically absent RECTOVAGINAL: patient declined. NEURO: alert and oriented x3,exam grossly non-focal EXTREMITIES: normal ASSESSMENT/PLAN: 1) Health maintenance: Pap/HPV up to date - repeat next year for h/o abnormal Mammogram ordered Colon cancer screening: up to date with screening - due 2027 2) Follow up one year or sooner as needed 3) Urinary urgency & frequency - advised on lifestyle changes & patient will call if this doesn't help 4) Atrophic vaginitis - continue vaginal estrace Samantha Lopez MD documented in this encounter [facility] 11-14-2021 Miscellaneous Notes Patient phones requesting refills as follows: Pending Prescriptions Disp Refills CHOLECALCIFEROL (VITAMIN D3) 1,250 MCG (50,000 UNIT) CAPSULE 4 capsule 1 Sig: TAKE 1 CAPSULE BY MOUTH EVERY WEEK HALEIGH: Yes JONATHON-07/14/21 Labs-04/14/21 NOV-12/15/21 med filled 09/26/21 Please review and advise. Nneka Post LPN documented in this encounter [facility] 09-26-2021 Miscellaneous Notes Patient has been identified by name and date of : Yes Pharmacy phones for refill(s): Pending Prescriptions Disp Refills CHOLECALCIFEROL (VITAMIN D3) 1,250 MCG (50,000 UNIT) CAPSULE 4 capsule 1 Sig: Take 1 capsule by mouth one time a week. HALEIGH: No Date of last office visit with pcp: 07/14/2021 Future appt: 10/14/2021 Last 2 Encounter Wt Readings: Date: Wt: 08/13/2021 77.1 kg (170 lb) 07/14/2021 77.6 kg (171 lb) Previous labs/tests for medication: Blood Pressure: BUN (mg/dL) Date Value 04/14/2021 13 Sodium (mmol/L) Date Value 04/14/2021 141 Last 1 Encounter BP Readings: Date: BP: 07/14/2021 124/80 Liver Function: ALT (U/L) Date Value 04/14/2021 9 AST (U/L) Date Value 04/14/2021 19 Please advise. Thank you. Stephani Grissom RN documented in this encounter [facility] 09-25-2021 History of Present illness Narrative Radiology Service Progress Note PATIENT NAME: Manuelito Gordon DATE OF SERVICE: September 25, 2021 TIME: 2:48 PM PATIENT IDENTITY VERIFICATION COMPLETED USING TWO (2) IDENTIFIERS: Name and Date of confirmed by patient verbally. FALL SCREENING: Has the patient had 2 falls in the last year or 1 fall with injury or currently using an Ambulatory Assistive Device (Walker, Cane, Wheelchair, Crutches, etc.)? No PATIENT GENDER DATA: Female. status: : No status: NO. PATIENT RELEVANT IMPLANT DATA REVIEWED: Not Applicable RADIOLOGY DEPARTMENT: CT; Exam(s) Completed: Chest PERIPHERAL IV DATA: Not applicable SIGNED BY: RT Ronnie(R) September 25, 2021 2:48 PM documented in this encounter [facility] 08-14-2021 Miscellaneous Notes Pt notified and verbalized understanding. Please assist with scheduling CT Areli Snell Ma Please inform patient that her PFTs and CXR are normal. I would like her to have a CT chest to further evaluate her shortness of breath Kai Dasilva DO documented in this encounter [facility] 08-13-2021 History of Present illness Narrative Radiology Service Progress Note PATIENT NAME: Manuelito Gordon DATE OF SERVICE: August 13, 2021 TIME: 11:14 AM PATIENT IDENTITY VERIFICATION COMPLETED USING TWO (2) IDENTIFIERS: Name and Date of confirmed by patient verbally. FALL SCREENING: Has the patient had 2 falls in the last year or 1 fall with injury or currently using an Ambulatory Assistive Device (Walker, Cane, Wheelchair, Crutches, etc.)? No PATIENT GENDER DATA: Female. status: : No status: NO. PATIENT RELEVANT IMPLANT DATA REVIEWED: Not Applicable RADIOLOGY DEPARTMENT: General X-ray: Exam(s) Completed: Chest X-Ray PERIPHERAL IV DATA: Not applicable SIGNED BY: RT Rosaura(R) August 13, 2021 11:14 AM documented in this encounter [facility] 08-13-2021 History of Present illness Narrative PULM FUNCTION SMARTBLOCK: Provider: Kai Dasilva DO Assisting Tech: Sara Palacios RRT Spirometry w/BD: 1 System: [id number] documented in this encounter [facility] 08-04-2021 Miscellaneous Notes Pt notified and verbalized understanding. Please let Manuelito know that we've received her echocardiogram results. She does have a grade 1 left ventricular diastolic dysfunction. This means that over time, she has had some stiffening in her left ventricle. At this point, this is just something that we'll continue to monitor, likely on a yearly basis. Otherwise, all other structures look good, heart function looks good as well. Imelda Elizalde APRN.STEFF documented in this encounter [facility] 08-01-2021 Miscellaneous Notes Patient has been identified by name and date of : Yes Pharmacy phones for refill(s): Pending Prescriptions Disp Refills CHOLECALCIFEROL (VITAMIN D3) 1,250 MCG (50,000 UNIT) CAPSULE 4 capsule 1 Sig: Take 1 capsule by mouth one time a week. HALEIGH: No BUPROPION XL 300 MG 24 HR TAB 90 tablet 3 Sig: Take 1 tablet by mouth once daily. HALEIGH: No BUPROPION XL 150 MG TAB 90 tablet 3 Sig: Take 1 tablet by mouth once daily. HALEIGH: No Date of last office visit with pcp: 07/14/2021 Future appt: 10/14/2021 Last 2 Encounter Wt Readings: Date: Wt: 07/14/2021 77.6 kg (171 lb) 04/14/2021 73.9 kg (163 lb) Previous labs/tests for medication: Cholesterol: HDL Cholesterol (mg/dL) Date Value 05/03/2020 50 HDL Cholesterol, Nonfasting (mg/dL) Date Value 02/10/2021 40 LDL Cholesterol (mg/dL) Date Value 05/03/2020 174 LDL Cholesterol, Nonfasting (mg/dL) Date Value 02/10/2021 166 ALT (U/L) Date Value 04/14/2021 9 Non HDL Cholesterol, Nonfasting (mg/dL) Date Value 02/10/2021 218 Liver Function: ALT (U/L) Date Value 04/14/2021 9 AST (U/L) Date Value 04/14/2021 19 Please advise. Thank you. Stephani Grissom, RN documented in this encounter [facility] 07-29-2021 Miscellaneous Notes Scheduled pt for CXR and PFT for 08/13. Pt asked for it to be scheduled at least 2 weeks out so she can ask off work. Adalberto Sam Patient Outreach Yes, fine to do CXR and PFTs first. Please assist her to schedule these. Imelda Elizalde APRN.STEFF Quiana Davis from [employer] calling [facility] Chest has been denied. She said patient needs to do PFT and Chest Xray first. She has been trying to reach you was needing peer to peer on this. Asking if PCP would like to change the orders first? Please advise documented in this encounter [facility] documented as of this encounter (statuses as of 07/29/2021) [facility] History of Past illness Narrative* Problem Noted Date Resolved Date Nausea & vomiting 04/28/2010 05/17/2012 Abdominal pain, epigastric 07/24/200805/17 Abdominal pain, unspecified site 05/17/2012 documented as of this encounter (statuses as of 08/01/2021) [facility] History of Past illness Narrative* Problem Noted Date Resolved Date Nausea & vomiting 04/28/2010 05/17/2012 Abdominal pain, epigastric 07/24/200805/17 Abdominal pain, unspecified site 05/17/2012 documented as of this encounter (statuses as of 08/13/2021) [facility] History of Past illness Narrative* Problem Noted Date Resolved Date Nausea & vomiting 04/28/2010 05/17/2012 Abdominal pain, epigastric 07/24/200805/17 Abdominal pain, unspecified site 05/17/2012 documented as of this encounter (statuses as of 08/14/2021) [facility] History of Past illness Narrative* Problem Noted Date Resolved Date Nausea & vomiting 04/28/2010 05/17/2012 Abdominal pain, epigastric 07/24/200805/17 Abdominal pain, unspecified site 05/17/2012 documented as of this encounter (statuses as of 08/27/2021) [facility] History of Past illness Narrative* Problem Noted Date Resolved Date Nausea & vomiting 04/28/2010 05/17/2012 Abdominal pain, epigastric 07/24/200805/17 Abdominal pain, unspecified site 05/17/2012 documented as of this encounter (statuses as of 08/29/2021) [facility] History of Past illness Narrative* Problem Noted Date Resolved Date Nausea & vomiting 04/28/2010 05/17/2012 Abdominal pain, epigastric 07/24/200805/17 Abdominal pain, unspecified site 05/17/2012 documented as of this encounter (statuses as of 09/26/2021) [facility] History of Past illness Narrative* Problem Noted Date Resolved Date Nausea & vomiting 04/28/2010 05/17/2012 Abdominal pain, epigastric 07/24/200805/17 Abdominal pain, unspecified site 05/17/2012 documented as of this encounter (statuses as of 11/14/2021) [facility] History of Past illness Narrative* Problem Noted Date Resolved Date Nausea & vomiting 04/28/2010 05/17/2012 Abdominal pain, epigastric 07/24/200805/17 Abdominal pain, unspecified site 05/17/2012 documented as of this encounter (statuses as of 12/02/2021) [facility] History of Past illness Narrative* Problem Noted Date Resolved Date Nausea & vomiting 04/28/2010 05/17/2012 Abdominal pain, epigastric 07/24/200805/17 Abdominal pain, unspecified site 05/17/2012 documented as of this encounter (statuses as of 12/11/2021) [facility] History of Past illness Narrative* Problem Noted Date Resolved Date Nausea & vomiting 04/28/2010 05/17/2012 Abdominal pain, epigastric 07/24/200805/17 Abdominal pain, unspecified site 05/17/2012 documented as of this encounter (statuses as of 12/16/2021) [facility] History of Past illness Narrative* Problem Noted Date Resolved Date Nausea & vomiting 04/28/2010 05/17/2012 Abdominal pain, epigastric 07/24/200805/17 Abdominal pain, unspecified site 05/17/2012 documented as of this encounter (statuses as of 12/22/2021) [facility] History of Past illness Narrative* Problem Noted Date Resolved Date Nausea & vomiting 04/28/2010 05/17/2012 Abdominal pain, epigastric 07/24/200805/17 Abdominal pain, unspecified site 05/17/2012 documented as of this encounter (statuses as of 01/06/2022) [facility] of Past illness Narrative* Problem Noted Date Resolved Date Nausea & vomiting 04/28/2010 05/17/2012 Abdominal pain, epigastric 07/24/200805/17 Abdominal pain, unspecified site 05/17/2012 documented as of this encounter (statuses as of 01/07/2022) [facility] of Past illness Narrative* Problem Noted Date Resolved Date Nausea & vomiting 04/28/2010 05/17/2012 Abdominal pain, epigastric 07/24/200805/17 Abdominal pain, unspecified site 05/17/2012 documented as of this encounter (statuses as of 01/09/2022) [facility] of Past illness Narrative* Problem Noted Date Resolved Date Nausea & vomiting 04/28/2010 05/17/2012 Abdominal pain, epigastric 07/24/200805/17 Abdominal pain, unspecified site 05/17/2012 documented as of this encounter (statuses as of 01/09/2022) [facility] History of Past illness Narrative* Problem Noted Date Resolved Date Nausea & vomiting 04/28/2010 05/17/2012 Abdominal pain, epigastric 07/24/200805/17 Abdominal pain, unspecified site 05/17/2012 documented as of this encounter (statuses as of 01/12/2022) [facility]2011 History of Past illness Narrative* Problem Noted Date Resolved Date Nausea & vomiting 04/28/2010 05/17/2012 Abdominal pain, epigastric 07/24/200805/17 Abdominal pain, unspecified site 05/17/2012 documented as of this encounter (statuses as of 02/04/2022) [facility]2011 History of Past illness Narrative* Problem Noted Date Resolved Date Nausea & vomiting 04/28/2010 05/17/2012 Abdominal pain, epigastric 07/24/200805/17 Abdominal pain, unspecified site 05/17/2012 documented as of this encounter (statuses as of 02/09/2022) [facility]2011 History of Past illness Narrative* Problem Noted Date Resolved Date Nausea & vomiting 04/28/2010 05/17/2012 Abdominal pain, epigastric 07/24/200805/17 Abdominal pain, unspecified site 05/17/2012 documented as of this encounter (statuses as of 03/06/2022) [facility]2011 History of Past illness Narrative* Problem Noted Date Resolved Date Nausea & vomiting 04/28/2010 05/17/2012 Abdominal pain, epigastric 07/24/200805/17 Abdominal pain, unspecified site 05/17/2012 documented as of this encounter (statuses as of 03/06/2022) [facility]2011 History of Past illness Narrative* Problem Noted Date Resolved Date Nausea & vomiting 04/28/2010 05/17/2012 Abdominal pain, epigastric 07/24/200805/17 Abdominal pain, unspecified site 05/17/2012 documented as of this encounter (statuses as of 03/12/2022) [facility]2011 History of Past illness Narrative* Problem Noted Date Resolved Date Nausea & vomiting 04/28/2010 05/17/2012 Abdominal pain, epigastric 07/24/200805/17 Abdominal pain, unspecified site 05/17/2012 documented as of this encounter (statuses as of 04/03/2022) [facility]2011 History of Past illness Narrative* Problem Noted Date Resolved Date Nausea & vomiting 04/28/2010 05/17/2012 Abdominal pain, epigastric 07/24/200805/17 Abdominal pain, unspecified site 05/17/2012 documented as of this encounter (statuses as of 05/04/2022) [facility]2011 History of Past illness Narrative* Problem Noted Date Resolved Date Nausea & vomiting 04/28/2010 05/17/2012 Abdominal pain, epigastric 07/24/200805/17 Abdominal pain, unspecified site 05/17/2012 documented as of this encounter (statuses as of 05/27/2022) [facility] History of Past illness Narrative* Problem Noted Date Resolved Date Nausea & vomiting 04/28/2010 05/17/2012 Abdominal pain, epigastric 07/24/200805/17 Abdominal pain, unspecified site 05/17/2012 documented as of this encounter (statuses as of 06/09/2022) [facility]2011 History of Past illness Narrative* Problem Noted Date Resolved Date Nausea & vomiting 04/28/2010 05/17/2012 Abdominal pain, epigastric 07/24/200805/17 Abdominal pain, unspecified site 05/17/2012 documented as of this encounter (statuses as of 06/10/2022) [facility] History of Past illness Narrative* Problem Noted Date Resolved Date Nausea & vomiting 04/28/2010 05/17/2012 Abdominal pain, epigastric 07/24/200805/17 Abdominal pain, unspecified site 05/17/2012 documented as of this encounter (statuses as of 06/26/2022) [facility]2011 History of Past illness Narrative* Problem Noted Date Resolved Date Nausea & vomiting 04/28/2010 05/17/2012 Abdominal pain, epigastric 07/24/200805/17 Abdominal pain, unspecified site 05/17/2012 documented as of this encounter (statuses as of 07/24/2022) [facility]2011 History of Past illness Narrative* Problem Noted Date Resolved Date Nausea & vomiting 04/28/2010 05/17/2012 Abdominal pain, epigastric 07/24/200805/17 Abdominal pain, unspecified site 05/17/2012 documented as of this encounter (statuses as of 08/21/2022) [facility]2011 History of Past illness Narrative* Problem Noted Date Resolved Date Nausea & vomiting 04/28/2010 05/17/2012 Abdominal pain, epigastric 07/24/200805/17 Abdominal pain, unspecified site 05/17/2012 documented as of this encounter (statuses as of 10/01/2022) [facility]2011 History of Past illness Narrative* Problem Noted Date Resolved Date Nausea & vomiting 04/28/2010 05/17/2012 Abdominal pain, epigastric 07/24/200805/17 Abdominal pain, unspecified site 05/17/2012 documented as of this encounter (statuses as of 10/15/2022) [facility]2011 History of Past illness Narrative* Problem Noted Date Resolved Date Nausea & vomiting 04/28/2010 05/17/2012 Abdominal pain, epigastric 07/24/200805/17 Abdominal pain, unspecified site 05/17/2012 documented as of this encounter (statuses as of 10/22/2022) [facility]2011 History of Past illness Narrative* Problem Noted Date Resolved Date Nausea & vomiting 04/28/2010 05/17/2012 Abdominal pain, epigastric 07/24/200805/17 Abdominal pain, unspecified site 05/17/2012 documented as of this encounter (statuses as of 10/27/2022) [facility]2011 History of Past illness Narrative* Problem Noted Date Diagnosed Date Resolved Date Nausea & vomiting 04/28/2010 05/17/2012 Abdominal pain, epigastric 07/24/2008 0 05/17/2012 Abdominal pain, unspecified site 05/17/2012 documented as of this encounter (statuses as of 11/05/2022) [facility]2011 History of Past illness Narrative* Problem Noted Date Diagnosed Date Resolved Date Nausea & vomiting 04/28/2010 05/17/2012 Abdominal pain, epigastric 07/24/2008 0 05/17/2012 Abdominal pain, unspecified site 05/17/2012 documented as of this encounter (statuses as of 11/16/2022) [facility]2011 History of Past illness Narrative* Problem Noted Date Diagnosed Date Resolved Date Nausea & vomiting 04/28/2010 05/17/2012 Abdominal pain, epigastric 07/24/2008 0 05/17/2012 Abdominal pain, unspecified site 05/17/2012 documented as of this encounter (statuses as of 12/03/2022) [facility]2011 History of Past illness Narrative* Problem Noted Date Diagnosed Date Resolved Date Nausea & vomiting 04/28/2010 05/17/2012 Abdominal pain, epigastric 07/24/2008 0 05/17/2012 Abdominal pain, unspecified site 05/17/2012 documented as of this encounter (statuses as of 12/09/2022) [facility]2011 History of Past illness Narrative* Problem Noted Date Diagnosed Date Resolved Date Nausea & vomiting 04/28/2010 05/17/2012 Abdominal pain, epigastric 07/24/2008 0 05/17/2012 Abdominal pain, unspecified site 05/17/2012 documented as of this encounter (statuses as of 01/05/2023) [facility]2011 History of Past illness Narrative* Problem Noted Date Diagnosed Date Resolved Date Nausea & vomiting 04/28/2010 05/17/2012 Abdominal pain, epigastric 07/24/2008 0 05/17/2012 Abdominal pain, unspecified site 05/17/2012 documented as of this encounter (statuses as of 01/07/2023) [facility]2011 History of Past illness Narrative* Problem Noted Date Diagnosed Date Resolved Date Nausea & vomiting 04/28/2010 05/17/2012 Abdominal pain, epigastric 07/24/2008 0 05/17/2012 Abdominal pain, unspecified site 05/17/2012 documented as of this encounter (statuses as of 01/08/2023) [facility]2011 History of Past illness Narrative* Problem Noted Date Diagnosed Date Resolved Date Nausea & vomiting 04/28/2010 05/17/2012 Abdominal pain, epigastric 07/24/2008 0 05/17/2012 Abdominal pain, unspecified site 05/17/2012 documented as of this encounter (statuses as of 01/21/2023) [facility]2011 History of Past illness Narrative* Problem Noted Date Diagnosed Date Resolved Date Nausea & vomiting 04/28/2010 05/17/2012 Abdominal pain, epigastric 07/24/2008 0 05/17/2012 Abdominal pain, unspecified site 05/17/2012 documented as of this encounter (statuses as of 02/03/2023) [facility] History of Past illness Narrative* Problem Noted Date Diagnosed Date Resolved Date Nausea & vomiting 04/28/2010 05/17/2012 Abdominal pain, epigastric 07/24/2008 0 05/17/2012 Abdominal pain, unspecified site 05/17/2012 documented as of this encounter (statuses as of 02/11/2023) [facility] History of Past illness Narrative* Problem Noted Date Diagnosed Date Resolved Date Nausea & vomiting 04/28/2010 05/17/2012 Abdominal pain, epigastric 07/24/2008 0 05/17/2012 Abdominal pain, unspecified site 05/17/2012 documented as of this encounter (statuses as of 02/28/2023) [facility]2011 History of Past illness Narrative* Problem Noted Date Diagnosed Date Resolved Date Nausea & vomiting 04/28/2010 05/17/2012 Abdominal pain, epigastric 07/24/2008 0 05/17/2012 Abdominal pain, unspecified site 05/17/2012 documented as of this encounter (statuses as of 03/16/2023) [facility]2011 History of Past illness Narrative* Problem Noted Date Diagnosed Date Resolved Date Nausea & vomiting 04/28/2010 05/17/2012 Abdominal pain, epigastric 07/24/2008 0 05/17/2012 Abdominal pain, unspecified site 05/17/2012 documented as of this encounter (statuses as of 03/19/2023) [facility]2011 History of Past illness Narrative* Problem Noted Date Diagnosed Date Resolved Date Nausea & vomiting 04/28/2010 05/17/2012 Abdominal pain, epigastric 07/24/2008 0 05/17/2012 Abdominal pain, unspecified site 05/17/2012 documented as of this encounter (statuses as of 03/26/2023) [facility] Diagnosis SOB (shortness of breath)- Primary Shortness of breath History of COVID-19 [facility] Diagnosis Vitamin D deficiency Unspecified vitamin D deficiency Moderate single current episode of major depressive disorder (HCC) Adjustment disorder with mixed anxiety and depressed mood [facility] Diagnosis SOB (shortness of breath) Shortness of breath History of COVID-19 [facility] Diagnosis SOB (shortness of breath) Shortness of breath History of COVID-19 [facility] Diagnosis Shortness of breath [facility] Diagnosis Shortness of breath [facility] Diagnosis Vitamin D deficiency Unspecified vitamin D deficiency [facility] Diagnosis Vitamin D deficiency Unspecified vitamin D deficiency [facility] Diagnosis Encounter for screening mammogram for breast cancer- Primary Encounter for gynecological examination (general) (routine) without abnormal findings Encounter for screening for human papillomavirus (HPV) Special screening examination for human papillomavirus (HPV) Pap smear for cervical cancer screening Screening for malignant neoplasm of the cervix [facility] Diagnosis Encounter for screening mammogram for breast cancer [facility] Diagnosis Acute bilateral ankle pain- Primary Hypothyroidism, acquired Unspecified hypothyroidism Fatigue, unspecified type Right wrist pain Pain in joint, forearm Chronic pain of right thumb Tenosynovitis, de Quervain Radial styloid tenosynovitis History of COVID-19 Adjustment disorder with mixed anxiety and depressed mood [facility] Diagnosis Vitamin D deficiency Unspecified vitamin D deficiency [facility] Diagnosis Primary osteoarthritis of both knees Primary localized osteoarthrosis, lower leg Chronic pain of both knees [facility] Diagnosis Loose stools- Primary Abnormal feces Bloating Flatulence, eructation, and gas pain Fatigue, unspecified type Situational stress Other psychological or physical stress, not elsewhere classified [facility] Diagnosis Essential (primary) hypertension Unspecified essential hypertension Gastritis without bleeding, unspecified chronicity, unspecified gastritis type documented in this encounter [facility] note* Diagnosis Adjustment disorder with mixed anxiety and depressed mood Vitamin D deficiency Unspecified vitamin D deficiency documented in this encounter [facility] note* Diagnosis Adjustment disorder with mixed anxiety and depressed mood Vitamin D deficiency Unspecified vitamin D deficiency documented in this encounter [facility] note* Diagnosis Functional diarrhea- Primary Loose stools Abnormal feces Bloating Flatulence, eructation, and gas pain Fatigue, unspecified type Gastritis without bleeding, unspecified chronicity, unspecified gastritis type Esophageal dysphagia Dysphagia, pharyngoesophageal phase Hiatal hernia Diaphragmatic hernia without mention of obstruction or gangrene documented in this encounter [facility] note* Diagnosis Atrophic vaginitis Postmenopausal atrophic vaginitis documented in this encounter [facility] note* Diagnosis Vitamin D deficiency Unspecified vitamin D deficiency documented in this encounter [facility] note* Diagnosis URI, acute- Primary Acute upper respiratory infections of unspecified site Sore throat Acute pharyngitis documented in this encounter [facility] note* Diagnosis Vitamin D deficiency Unspecified vitamin D deficiency Hypothyroidism, acquired Unspecified hypothyroidism Fatigue, unspecified type Primary osteoarthritis of both knees Primary localized osteoarthrosis, lower leg Chronic pain of both knees Acute bilateral ankle pain Right wrist pain Pain in joint, forearm Chronic pain of right thumb Tenosynovitis, de Quervain Radial styloid tenosynovitis Hyperlipidemia, unspecified hyperlipidemia type documented in this encounter [facility] note* Diagnosis Moderate single current episode of major depressive disorder (HCC) Essential (primary) hypertension Unspecified essential hypertension documented in this encounter [facility] note* Diagnosis Vitamin D deficiency Unspecified vitamin D deficiency Gastritis without bleeding, unspecified chronicity, unspecified gastritis type documented in this encounter [facility]* Diagnosis Melasma- Primary Other dyschromia Chronic pain of right ankle Right ankle swelling Effusion of ankle and foot joint Obesity, Class I, BMI 30-34.9 Obesity, unspecified Fatigue, unspecified type documented in this encounter [facility]* Diagnosis Chronic pain of right ankle- Primary documented in this encounter [facility] note* Diagnosis Encounter for removal of sutures- Primary Laceration of left index finger without foreign body without damage to nail, subsequent encounter [facility] Encounter for gynecological examination (general) (routine) without abnormal findings- Primary Pain with urination Renal colic Atrophic vaginitis Postmenopausal atrophic vaginitis Encounter for screening mammogram for breast cancer History of cervical dysplasia Personal history of cervical dysplasia [facility] Diagnosis Hypothyroidism, acquired Unspecified hypothyroidism Fatigue, unspecified type Vitamin D deficiency Unspecified vitamin D deficiency Primary osteoarthritis of both knees Primary localized osteoarthrosis, lower leg Chronic pain of both knees [facility] Diagnosis Essential (primary) hypertension Unspecified essential hypertension [facility] Diagnosis Upper respiratory tract infection, unspecified type- Primary [facility] Diagnosis Vitamin D deficiency Unspecified vitamin D deficiency Gastritis without bleeding, unspecified chronicity, unspecified gastritis type [facility] Diagnosis Hypothyroidism, acquired Unspecified hypothyroidism Hyperlipidemia, mixed Mixed hyperlipidemia Essential (primary) hypertension Unspecified essential hypertension ANTOLIN (obstructive sleep apnea) Obstructive sleep apnea (adult) (pediatric) Hiatal hernia Diaphragmatic hernia without mention of obstruction or gangrene Overweight with body mass index (BMI) of 29 to 29.9 in adult [facility] Diagnosis Encounter for gynecological examination (general) (routine) without abnormal findings Encounter for screening mammogram for breast cancer [facility] Diagnosis Left upper arm pain Pain in limb [facility] Diagnosis Vitamin D deficiency Unspecified vitamin D deficiency documented in this encounter [facility] for referral (narrative)* Outpatient Procedure (Routine) - Authorized Specialty Diagnoses / Procedures Referred By Contac t Referred To Contact [facility] Diagnoses SOB (shortness of breath) History of COVID-19 Procedures SPIROMETRY - BASELINE AND POST DILATOR BRNCDILAT RSPSE SPMTRY PRE&POST-BRNCDILAT ADMN Kai Dasilva, [address] [place] [address] [facility] [address] [place] [address] Referral ID Status Reason Start Date Expiration Date Visits Requested Visits Authorized [id number] Authorized Auto-Generat ed Referral 07/28/2021 08/27/2022 1 1 [facility] for referral (narrative)* Diagnostic Procedure Only (Routine) - Authorized Specialty Diagnoses / Procedures Referred By Travis t Referred To Contact [facility] Diagnoses Encounter for screening mammogram for breast cancer Procedures FRANKIE SCREENING SCREENING MAMMOGRAPHY BI 2-VIEW BREAST INC Samantha Schreiber MD [address] [place] [address] [facility] [address] [place] [address] Referral ID Status Reason Start Date Expiration Date Visits Requested Visits Authorized [id number] Authorized Auto-Generat ed Referral 12/02/2021 01/01/2023 1 1 [facility] for referral (narrative)* Diagnostic Procedure Only (Routine) - Pending Review Specialty Diagnoses / Procedures Referred By Travis t Referred To Contact XR IMAGING Diagnoses Chronic pain of right ankle Right ankle swelling Procedures XR ANKLE GENERAL 3V AP/LAT/OBL RIGHT RADEX ANKLE COMPLETE MINIMUM 3 VIEWS Kai Dasilva DO [address] [place] [address] Xr Imaging Referral ID Status Reason Start Date Expiration Date Visits Requested Visits Authorized [id number] Pending Review Auto-Generat ed Referral 09/30/2022 10/30/2023 1 1 * Medication Prior Authorization - Closed Specialty Diagnoses / Procedures Referred By Travis t Referred To Contact Diagnoses Kai Molina DO [address] [place] [address] Referral ID Status Reason Start Date Expiration Date Visits Re quested Visits Authorized [id number] Closed 1 1 [facility] for referral (narrative)* Diagnostic Procedure Only (Routine) - Authorized Specialty Diagnoses / Procedures Referred By Travis t Referred To Contact [facility] Diagnoses Encounter for gynecological examination (general) (routine) without abnormal findings Encounter for screening mammogram for breast cancer Procedures FRANKIE SCREENING SCREENING MAMMOGRAPHY BI 2-VIEW [employer] Samantha Schreiber MD [address] [place] [address] [facility] [address] [employer] [address] [place] [phone] Referral ID Status Reason Start Date Expiration Date Visits Requested Visits Authorized [id number] Authorized Auto-Generat ed Referral 12/03/2022 01/02/2024 1 1 [facility] for referral (narrative)* Diagnostic Procedure Only (Routine) - Closed Specialty Diagnoses / Procedures Referred By Travis reza Referred To Contact [facility] Diagnoses Encounter for gynecological examination (general) (routine) without abnormal findings Encounter for screening mammogram for breast cancer Procedures FRANKIE SCREENING SCREENING MAMMOGRAPHY BI 2-VIEW [employer] Samantha Schreiber MD [address] [place] [address] [facility] [address] [place] [address] Referral ID Status Reason Start Date Expiration Date V isits Requested Visits Authorized [id number] Closed Auto-Generate d Referral 12/03/2022 01/02/2024 1 1 [facility] for visit Narrative* Diagnostic Procedure Only (Routine) - Authorized Specialty Diagnoses / Procedures Referred By Travis reza Referred To Contact [facility] Diagnoses Encounter for screening mammogram for breast cancer Procedures FRANKIE SCREENING SCREENING MAMMOGRAPHY BI 2-VIEW BREAST INC Samantha Schreiber MD [address] [place] [address] [facility] [address] [place] [address] Referral ID Status Reason Start Date Expiration Date Visits Requested Visits Authorized [id number] Authorized Auto-Generat ed Referral 12/02/2021 01/01/2023 1 1 [facility] for visit Narrative* Diagnostic Procedure Only (Routine) - Closed Specialty Diagnoses / Procedures Referred By Travis reza Referred To Contact [facility] Diagnoses Encounter for screening mammogram for breast cancer Procedures FRANKIE SCREENING SCREENING MAMMOGRAPHY BI 2-VIEW BREAST INC Samantha Schreiber MD [address] [place] [address] [facility] [address] [place] [address] Referral ID Status Reason Start Date Expiration Date V isits Requested Visits Authorized [id number] Closed Auto-Generate d Referral 12/02/2021 01/01/2023 1 1 [facility] for visit Narrative* Diagnostic Procedure Only (Routine) - Closed Specialty Diagnoses / Procedures Referred By Travis reza Referred To Contact [facility] Diagnoses Encounter for gynecological examination (general) (routine) without abnormal findings Encounter for screening mammogram for breast cancer Procedures FRANKIE SCREENING SCREENING MAMMOGRAPHY BI 2-VIEW BREAST INC Samantha Schreiber MD [address] [place] [address] [facility] [address] [place] [phone] Referral ID Status Reason Start Date Expiration Date V isits Requested Visits Authorized [id number] Closed Auto-Generate d Referral 12/03/2022 01/02/2024 1 1 [facility] for visit Narrative* Outpatient Procedure (Routine) - Closed Specialty Diagnoses / Procedures Referred By Travis reza Referred To Contact [facility] Diagnoses Left upper arm pain Procedures EMG(NEURO/NI) NERVE CONDUCTION STUDIES 9-10 STUDIES Imelda Elizalde, INTERNATIONAL SOURCING MANAGER.INSPECTOR PLATING [address] [place] [address] [facility] [address] [place] [id number] Referral ID Status Reason Start Date Expiration Date V isits Requested Visits Authorized [id number] Closed Auto-Generate d Referral 01/10/2023 04/25/2023 1 1 [facility] Advance Directives No Advanced Directives Records FoundDocuments on File Type Date Recorded 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 Advance Directive(s) 08/06/2020 6:21 AM Advance Directive(s) 07/23/2020 4:13 PM Advance Directive(s) 02/15/2018 9:56 AM Advance Directive(s) 07/06/2017 5:49 AM Advance Directive(s) 12/15/2016 6:13 AM Documents on File Type Date Recorded 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 Advance Directive(s) 08/06/2020 6:21 AM Advance Directive(s) 07/23/2020 4:13 PM Advance Directive(s) 02/15/2018 9:56 AM Advance Directive(s) 07/06/2017 5:49 AM Advance Directive(s) 12/15/2016 6:13 AM Reason for Referral Specialty Diagnoses / Procedures Referred By Contac t Referred To Contact CT IMAGING Diagnoses Shortness of breath Procedures CT CHEST WO IVCON DIAGNOSTIC COMPUTED TOMOGRAPHY THORAX W/O CNTRST Kai Dasilva, DO [address] [place] [address] Ct Imaging Referral ID Status Reason Start Date Expiration Date Visits Requested Visits Authorized [id number] Authorized Auto-Generat ed Referral Patient Cleared - Admin/Chairm an/Director advise to proceed 08/14/2021 10/13/2021 1 1 Referral ID Status Reason Start Date Expiration Date V isits Requested Visits Authorized [id number] Closed Auto-Generat ed Referral Patient Cleared - Admin/Chairm an/Director advise to proceed 08/14/2021 10/13/2021 1 1 Specialty Diagnoses / Procedures Referred By Contac t Referred To Contact Diagnoses Primary osteoarthritis of both knees Chronic pain of both knees Kai Dasilva, DO [address] [place] [address] Referral ID Status Reason Start Date Expiration Date V isits Requested Visits Authorized [id number] Pending Review 1 1 Specialty Diagnoses / Procedures Referred By Contac t Referred To Contact Diagnoses Essential (primary) hypertension Cassandra Ivan APRN.INSPECTOR PLATING [address] [place] [address] Referral ID Status Reason Start Date Expiration Date Visits Re quested Visits Authorized [id number] Closed 1 1 Specialty Diagnoses / Procedures Referred By Contac t Referred To Contact Gastroenterology Diagnoses Functional diarrhea Loose stools Bloating Fatigue, unspecified type Gastritis without bleeding, unspecified chronicity, unspecified gastritis type Esophageal dysphagia Hiatal hernia Procedures CONSULT TO GASTROENTEROLOGY OFFICE/OUTPATIENT [facility] 60-74 MINUTES Imelda Elizalde, INTERNATIONAL SOURCING MANAGER.INSPECTOR PLATING [address] [place] [address] Referral ID Status Reason Start Date Expiration Date Visits Requested Visits Authorized [id number] Authorized PCP Requested Referral 2 02/05/2023 1 1 Specialty Diagnoses / Procedures Referred By Contac t Referred To Contact Diagnoses Essential (primary) hypertension Cassandra Gaytan, INTERNATIONAL SOURCING MANAGER.INSPECTOR PLATING [address] [place] [address] Referral ID Status Reason Start Date Expiration Date Visits Re quested Visits Authorized [id number] Closed 1 1 Specialty Diagnoses / Procedures Referred By Contac t Referred To Contact Podiatry Diagnoses Chronic pain of right ankle Procedures CONSULT TO PODIATRY OFFICE/OUTPATIENT [facility] 60-74 MINUTES Imelda Elizalde APRN.INSPECTOR PLATING [address] [place] [address] Referral ID Status Reason Start Date Expiration Date Visits Requested Visits Authorized [id number] Authorized PCP Requested Referral 10/26/2022 10/26/2023 1 1 Health Concerns Infection Onset Date Last Indicated Resolved Time COVID-19 Rule-Out 01/07/2023 01/07/2023 Summary Purpose Family History No Family History Records Found Additional Source Comments Source Comments (unrecognize d section and content) In the event this informatio n is protected by the Federal Confidentiality of Alcohol and Drug Abuse Patient Records regulations: The Federal rules restrict any use of the information to criminally investigate or prosecute any alcohol or drug abuse patient.[facility] CenterIn the event this information is protected by the Federal Confidentiality of Alcohol and Drug Abuse Patient Records regulations: The Federal rules restrict any use of the information to criminally investigate or prosecute any alcohol or drug abuse patient.[facility] CenterIn the event this information is protected by the Federal Confidentiality of Alcohol and Drug Abuse Patient Records regulations: The Federal rules restrict any use of the information to criminally investigate or prosecute any alcohol or drug abuse patient.[facility] CenterIn the event this information is protected by the Federal Confidentiality of Alcohol and Drug Abuse Patient Records regulations: The Federal rules restrict any use of the information to criminally investigate or prosecute any alcohol or drug abuse patient.[facility] CenterIn the event this information is protected by the Federal Confidentiality of Alcohol and Drug Abuse Patient Records regulations: The Federal rules restrict any use of the information to criminally investigate or prosecute any alcohol or drug abuse patient.[facility] CenterIn the event this information is protected by the Federal Confidentiality of Alcohol and Drug Abuse Patient Records regulations: The Federal rules restrict any use of the information to criminally investigate or prosecute any alcohol or drug abuse patient.[facility] CenterIn the event this information is protected by the Federal Confidentiality of Alcohol and Drug Abuse Patient Records regulations: The Federal rules restrict any use of the information to criminally investigate or prosecute any alcohol or drug abuse patient.[facility] CenterIn the event this information is protected by the Federal Confidentiality of Alcohol and Drug Abuse Patient Records regulations: The Federal rules restrict any use of the information to criminally investigate or prosecute any alcohol or drug abuse patient.[facility] CenterIn the event this information is protected by the Federal Confidentiality of Alcohol and Drug Abuse Patient Records regulations: The Federal rules restrict any use of the information to criminally investigate or prosecute any alcohol or drug abuse patient.[facility] CenterIn the event this information is protected by the Federal Confidentiality of Alcohol and Drug Abuse Patient Records regulations: The Federal rules restrict any use of the information to criminally investigate or prosecute any alcohol or drug abuse patient.[facility] CenterIn the event this information is protected by the Federal Confidentiality of Alcohol and Drug Abuse Patient Records regulations: The Federal rules restrict any use of the information to criminally investigate or prosecute any alcohol or drug abuse patient.[facility] CenterIn the event this information is protected by the Federal Confidentiality of Alcohol and Drug Abuse Patient Records regulations: The Federal rules restrict any use of the information to criminally investigate or prosecute any alcohol or drug abuse patient.[facility] CenterIn the event this information is protected by the Federal Confidentiality of Alcohol and Drug Abuse Patient Records regulations: The Federal rules restrict any use of the information to criminally investigate or prosecute any alcohol or drug abuse patient.[facility] CenterIn the event this information is protected by the Federal Confidentiality of Alcohol and Drug Abuse Patient Records regulations: The Federal rules restrict any use of the information to criminally investigate or prosecute any alcohol or drug abuse patient.[facility] CenterIn the event this information is protected by the Federal Confidentiality of Alcohol and Drug Abuse Patient Records regulations: The Federal rules restrict any use of the information to criminally investigate or prosecute any alcohol or drug abuse patient.[facility] CenterIn the event this information is protected by the Federal Confidentiality of Alcohol and Drug Abuse Patient Records regulations: The Federal rules restrict any use of the information to criminally investigate or prosecute any alcohol or drug abuse patient.[facility] CenterIn the event this information is protected by the Federal Confidentiality of Alcohol and Drug Abuse Patient Records regulations: The Federal rules restrict any use of the information to criminally investigate or prosecute any alcohol or drug abuse patient.[facility] CenterIn the event this information is protected by the Federal Confidentiality of Alcohol and Drug Abuse Patient Records regulations: The Federal rules restrict any use of the information to criminally investigate or prosecute any alcohol or drug abuse patient.[facility] CenterIn the event this information is protected by the Federal Confidentiality of Alcohol and Drug Abuse Patient Records regulations: The Federal rules restrict any use of the information to criminally investigate or prosecute any alcohol or drug abuse patient.[facility] CenterIn the event this information is protected by the Federal Confidentiality of Alcohol and Drug Abuse Patient Records regulations: The Federal rules restrict any use of the information to criminally investigate or prosecute any alcohol or drug abuse patient.[facility] CenterIn the event this information is protected by the Federal Confidentiality of Alcohol and Drug Abuse Patient Records regulations: The Federal rules restrict any use of the information to criminally investigate or prosecute any alcohol or drug abuse patient.[facility] CenterIn the event this information is protected by the Federal Confidentiality of Alcohol and Drug Abuse Patient Records regulations: The Federal rules restrict any use of the information to criminally investigate or prosecute any alcohol or drug abuse patient.[facility] CenterIn the event this information is protected by the Federal Confidentiality of Alcohol and Drug Abuse Patient Records regulations: The Federal rules restrict any use of the information to criminally investigate or prosecute any alcohol or drug abuse patient.[facility] CenterIn the event this information is protected by the Federal Confidentiality of Alcohol and Drug Abuse Patient Records regulations: The Federal rules restrict any use of the information to criminally investigate or prosecute any alcohol or drug abuse patient.[facility] CenterIn the event this information is protected by the Federal Confidentiality of Alcohol and Drug Abuse Patient Records regulations: The Federal rules restrict any use of the information to criminally investigate or prosecute any alcohol or drug abuse patient.[facility] CenterIn the event this information is protected by the Federal Confidentiality of Alcohol and Drug Abuse Patient Records regulations: The Federal rules restrict any use of the information to criminally investigate or prosecute any alcohol or drug abuse patient.[facility] CenterIn the event this information is protected by the Federal Confidentiality of Alcohol and Drug Abuse Patient Records regulations: The Federal rules restrict any use of the information to criminally investigate or prosecute any alcohol or drug abuse patient.[facility] CenterIn the event this information is protected by the Federal Confidentiality of Alcohol and Drug Abuse Patient Records regulations: The Federal rules restrict any use of the information to criminally investigate or prosecute any alcohol or drug abuse patient.[facility] CenterIn the event this information is protected by the Federal Confidentiality of Alcohol and Drug Abuse Patient Records regulations: The Federal rules restrict any use of the information to criminally investigate or prosecute any alcohol or drug abuse patient.[facility] CenterIn the event this information is protected by the Federal Confidentiality of Alcohol and Drug Abuse Patient Records regulations: The Federal rules restrict any use of the information to criminally investigate or prosecute any alcohol or drug abuse patient.[facility] CenterIn the event this information is protected by the Federal Confidentiality of Alcohol and Drug Abuse Patient Records regulations: The Federal rules restrict any use of the information to criminally investigate or prosecute any alcohol or drug abuse patient.[facility] CenterIn the event this information is protected by the Federal Confidentiality of Alcohol and Drug Abuse Patient Records regulations: The Federal rules restrict any use of the information to criminally investigate or prosecute any alcohol or drug abuse patient.[facility] CenterIn the event this information is protected by the Federal Confidentiality of Alcohol and Drug Abuse Patient Records regulations: The Federal rules restrict any use of the information to criminally investigate or prosecute any alcohol or drug abuse patient.[facility] CenterIn the event this information is protected by the Federal Confidentiality of Alcohol and Drug Abuse Patient Records regulations: The Federal rules restrict any use of the information to criminally investigate or prosecute any alcohol or drug abuse patient.[facility] CenterIn the event this information is protected by the Federal Confidentiality of Alcohol and Drug Abuse Patient Records regulations: The Federal rules restrict any use of the information to criminally investigate or prosecute any alcohol or drug abuse patient.[facility] CenterIn the event this information is protected by the Federal Confidentiality of Alcohol and Drug Abuse Patient Records regulations: The Federal rules restrict any use of the information to criminally investigate or prosecute any alcohol or drug abuse patient.[facility] CenterIn the event this information is protected by the Federal Confidentiality of Alcohol and Drug Abuse Patient Records regulations: The Federal rules restrict any use of the information to criminally investigate or prosecute any alcohol or drug abuse patient.[facility] CenterIn the event this information is protected by the Federal Confidentiality of Alcohol and Drug Abuse Patient Records regulations: The Federal rules restrict any use of the information to criminally investigate or prosecute any alcohol or drug abuse patient.[facility] CenterIn the event this information is protected by the Federal Confidentiality of Alcohol and Drug Abuse Patient Records regulations: The Federal rules restrict any use of the information to criminally investigate or prosecute any alcohol or drug abuse patient.[facility] CenterIn the event this information is protected by the Federal Confidentiality of Alcohol and Drug Abuse Patient Records regulations: The Federal rules restrict any use of the information to criminally investigate or prosecute any alcohol or drug abuse patient.[facility] CenterIn the event this information is protected by the Federal Confidentiality of Alcohol and Drug Abuse Patient Records regulations: The Federal rules restrict any use of the information to criminally investigate or prosecute any alcohol or drug abuse patient.[facility] CenterIn the event this information is protected by the Federal Confidentiality of Alcohol and Drug Abuse Patient Records regulations: The Federal rules restrict any use of the information to criminally investigate or prosecute any alcohol or drug abuse patient.[facility] CenterIn the event this information is protected by the Federal Confidentiality of Alcohol and Drug Abuse Patient Records regulations: The Federal rules restrict any use of the information to criminally investigate or prosecute any alcohol or drug abuse patient.[facility] CenterIn the event this information is protected by the Federal Confidentiality of Alcohol and Drug Abuse Patient Records regulations: The Federal rules restrict any use of the information to criminally investigate or prosecute any alcohol or drug abuse patient.[facility] CenterIn the event this information is protected by the Federal Confidentiality of Alcohol and Drug Abuse Patient Records regulations: The Federal rules restrict any use of the information to criminally investigate or prosecute any alcohol or drug abuse patient.[facility] CenterIn the event this information is protected by the Federal Confidentiality of Alcohol and Drug Abuse Patient Records regulations: The Federal rules restrict any use of the information to criminally investigate or prosecute any alcohol or drug abuse patient.[facility] CenterIn the event this information is protected by the Federal Confidentiality of Alcohol and Drug Abuse Patient Records regulations: The Federal rules restrict any use of the information to criminally investigate or prosecute any alcohol or drug abuse patient.[facility] CenterIn the event this information is protected by the Federal Confidentiality of Alcohol and Drug Abuse Patient Records regulations: The Federal rules restrict any use of the information to criminally investigate or prosecute any alcohol or drug abuse patient.[facility] CenterIn the event this information is protected by the Federal Confidentiality of Alcohol and Drug Abuse Patient Records regulations: The Federal rules restrict any use of the information to criminally investigate or prosecute any alcohol or drug abuse patient.[facility] CenterIn the event this information is protected by the Federal Confidentiality of Alcohol and Drug Abuse Patient Records regulations: The Federal rules restrict any use of the information to criminally investigate or prosecute any alcohol or drug abuse patient.[facility] Reason for Visit (unrecogniz ed section and content) Reason Onset Date Comments Refill Request 08/01/2021 Reason Comments Spirometry Specialty Diagnoses / Procedures Referred By Contac t Referred To Contact [facility] Diagnoses SOB (shortness of breath) History of COVID-19 Procedures SPIROMETRY - BASELINE AND POST DILATOR BRNCDILAT RSPSE SPMTRY PRE&POST-BRNCDILAT ADMN Kai Dasilva, [address] [place] [address] [facility] [place] [address] [place] [address] Referral ID Status Reason Start Date Expiration Date V isits Requested Visits Authorized [id number] Closed Auto-Generate d Referral 07/28/2021 08/27/2022 1 1 Reason Comments Results Reason Comments Results Reason Comments Radiology CT Specialty Diagnoses / Procedures Referred By Travis reza Referred To Contact CT IMAGING Diagnoses Shortness of breath Procedures CT CHEST WO IVCON DIAGNOSTIC COMPUTED TOMOGRAPHY THORAX W/O CNTRST Kai Dasilva, DO [address] [place] [address] Ct Imaging Referral ID Status Reason Start Date Expiration Date V isits Requested Visits Authorized [id number] Closed Auto-Generat ed Referral Patient Cleared - Admin/Chairm an/Director advise to proceed 08/14/2021 10/13/2021 1 1 Reason Onset Date Comments Refill Request 09/26/2021 Reason Comments Refill Request Reason Comments Well Woman Reason Comments Follow Up 3 months Reason Onset Date Comments Refill Request 01/09/2022 Reason Comments Insurance Authorization Reason Onset Date Comments Refill Request 02/06/2022 Reason Onset Date Comments Refill Request 03/06/2022 Reason Onset Date Comments Refill Request 04/02/2022 Reason Onset Date Comments Refill Request 05/04/2022 Reason Onset Date Comments Refill Request 05/27/2022 Reason Comments Nasal Congestion drainage, cough, sor e throat and headache x 4 days Reason Onset Date Comments Refill Request 06/25/2022 Reason Onset Date Comments Refill Request 07/24/2022 Reason Onset Date Comments Refill Request 08/20/2022 Reason Comments Follow Up Reason Onset Date Comments Refill Request 10/15/2022 Reason Comments Results Orders Reason Onset Date Comments Refill Request 11/04/2022 Reason Comments ER F/U Suture removal Reason Comments Yearly Exam Reason Onset Date Comments Refill Request 12/08/2022 Reason Onset Date Comments Refill Request 01/05/2023 Reason Onset Date Comments Refill Request 01/06/2023 Reason Comments Nasal Congestion drainage, sneezing, sore throat x 2 days Reason Onset Date Comments Refill Request 02/02/2023 Reason Onset Date Comments Refill Request 02/11/2023 Reason Onset Date Comments Refill Request 03/25/2023 Care Teams (unrecognized sec tion and content) Test Specialist Relationship Specialty Start Date End Date Kai Dasilva, DO [address] [place] [address] PCP - General Family Practice 06/09/12 Test Specialist Relationship Specialty Start Date End Date Kai Dasilva, DO [address] [place] [address] PCP - General Family Practice 06/09/12 Test Specialist Relationship Specialty Start Date End Date Kai Dasilva, DO [address] [place] [address] PCP - General Family Practice 06/09/12 Test Specialist Relationship Specialty Start Date End Date Kai Dasilva, DO [address] [place] [address] PCP - General Family Practice 06/09/12 Test Specialist Relationship Specialty Start Date End Date Kai Dasilva, DO [address] [place] [address] PCP - General Family Practice 06/09/12 Test Specialist Relationship Specialty Start Date End Date Kai Dasilva, DO [address] [place] [address] PCP - General Family Practice 06/09/12 Test Specialist Relationship Specialty Start Date End Date Kai Dasilva, DO [address] [place] [address] PCP - General Family Practice 06/09/12 Test Specialist Relationship Specialty Start Date End Date Kai Dasilva, DO [address] [place] [address] PCP - General Family Practice 06/09/12 Test Specialist Relationship Specialty Start Date End Date Kai Dasilva, DO [address] [place] [address] PCP - General Family Practice 06/09/12 Test Specialist Relationship Specialty Start Date End Date Kai Dasilva, DO [address] [place] [address] PCP - General Family Practice 06/09/12 Test Specialist Relationship Specialty Start Date End Date Kai Dasilav, DO [address] [place] [address] PCP - General Family Practice 06/09/12 Test Specialist Relationship Specialty Start Date End Date Kai Dasilva, DO [address] [place] [address] PCP - General Family Practice 06/09/12 Test Specialist Relationship Specialty Start Date End Date Kai Dasilva, DO [address] [place] [address] PCP - General Family Practice 06/09/12 Test Specialist Relationship Specialty Start Date End Date Kai Dasilva, DO [address] [place] [address] PCP - General Family Practice 06/09/12 Test Specialist Relationship Specialty Start Date End Date Kai Dasilva, DO [address] [place] [address] PCP - General Family Practice 06/09/12 Test Specialist Relationship Specialty Start Date End Date Kai Dasilva, DO [address] [place] [address] PCP - General Family Medicine 06/09/12 Test Specialist Relationship Specialty Start Date End Date Kai Dasilva, DO [address] [place] [address] PCP - General Family Medicine 06/09/12 Test Specialist Relationship Specialty Start Date End Date Kai Dasilva, DO [address] [place] [address] PCP - General Family Medicine 06/09/12 Test Specialist Relationship Specialty Start Date End Date Kai Dasilva, DO [address] [place] [address] PCP - General Family Medicine 06/09/12 Test Specialist Relationship Specialty Start Date End Date Kai Dasilva, DO [address] [place] [address] PCP - General Family Medicine 06/09/12 Test Specialist Relationship Specialty Start Date End Date Kai Dasilva, DO [address] [place] [address] PCP - General Family Medicine 06/09/12 Test Specialist Relationship Specialty Start Date End Date Kai Dasilva, DO [address] [place] [address] PCP - General Family Medicine 06/09/12 Test Specialist Relationship Specialty Start Date End Date Kai Dasilva, DO [address] [place] [address] PCP - General Family Medicine 06/09/12 Test Specialist Relationship Specialty Start Date End Date Kai Dasilva, DO [address] [place] [address] PCP - General Family Medicine 06/09/12 Test Specialist Relationship Specialty Start Date End Date Kai Dasilva, DO [address] [place] [address] PCP - General Family Medicine 06/09/12 Test Specialist Relationship Specialty Start Date End Date Kai Dasilva, DO [address] [place] [address] PCP - General Family Medicine 06/09/12 Test Specialist Relationship Specialty Start Date End Date Kai Dasilva, DO [address] [place] [address] PCP - General Family Medicine 06/09/12 Test Specialist Relationship Specialty Start Date End Date Kai Dasilva DO [address] [place] [address] PCP - General Family Medicine 06/09/12 Test Specialist Relationship Specialty Start Date End Date Kai Dasilva DO [address] [place] [address] PCP - General Family Medicine 06/09/12 Test Specialist Relationship Specialty Start Date End Date Kai Dasilva DO [address] [place] [address] PCP - General Family Medicine 06/09/12 Test Specialist Relationship Specialty Start Date End Date Kai Dasilva DO [address] [place] [address] PCP - General Family Medicine 06/09/12 Test Specialist Relationship Specialty Start Date End Date Kai Dasilva DO [address] [place] [address] PCP - General Family Medicine 06/09/12 Test Specialist Relationship Specialty Start Date End Date Kai Dasilva DO [address] [place] [address] PCP - General Family Medicine 06/09/12 Test Specialist Relationship Specialty Start Date End Date Kai Dasilva DO [address] [place] [address] PCP - General Family Medicine 06/09/12 Test Specialist Relationship Specialty Start Date End Date Kai Dasilva DO [address] [place] [address] PCP - General Family Medicine 06/09/12 Test Specialist Relationship Specialty Start Date End Date Kai Dasilva DO [address] [facility] [place] [address] PCP - General Family Medicine 06/09/12 Test Specialist Relationship Specialty Start Date End Date Kai Dasilva DO [address] [facility] [place] [address] PCP - General Family Medicine 06/09/12 Test Specialist Relationship Specialty Start Date End Date Kai Dasilva DO [address] [place] [address] PCP - General Family Medicine 06/09/12 Test Specialist Relationship Specialty Start Date End Date Kai Dasilva, [address] [place] [address] PCP - General Family Medicine 06/09/12 INFORMATION SOURCE (unrecogn ized section and content) FOR RECORDS PERTAINING TO PATIENTS WHO ARE OR HAVE BEEN ENROLLED IN A CHEMICAL DEPENDENCY/SUBSTANCEABUSE PROGRAM, SOME INFORMATION MAY BE OMITTED. This clinical summary was aggregated from multiple sources. Caution should be exercised in using it in the provision of clinical care. This summary normalizes information from multiple sources, and as a consequence, information in this document may materially change the coding, format and clinical context of patient data. In addition, data may be omitted in some cases. CLINICAL DECISIONS SHOULD BE BASED ON THE PRIMARY CLINICAL RECORDS. [employer] [facility]. provides no warranty or guarantee of the accuracy or completeness of information in this document.
[2023-04-24] MEDS: 0.9% Normal Saline (1000mL) 1,000 ML 999 ML IV ×2 (22:22→23:31)
[2023-04-24] MEDS: Ondansetron 4 MG/2 ML Vial IV (22:22)
[2023-04-24 22:32] LABS: Absolute Lymphocyte Count 1.93 X10^3/uL (0.83-4.51); Absolute Neutrophil Count 7.2 X10^3/uL (2.0-7.7); Basophil# 0.06 X10^3/uL; Basophil% 0.6 % (0-1); Eosinophil# 0.15 X10^3/uL; Eosinophils% 1.5 % (0-5); Hematocrit 43.8 % (37-47); Hemoglobin 14.3 g/dL (12.0-15.0); Lymphocyte # 1.93 X10^3/ul (0.83-4.51); Lymphocyte % 18.9 % (19-41); Mean Corp Hgb Conc 32.6 g/dL (32-36); Mean Corpuscular Hgb 28.3 pg (27.0-32.0); Mean Corpuscular Volume 86.6 fL (81-99); Mean Platelet Vol. 9.4 fl (6.2-12.0); Monocyte# 0.88 X10^3/uL; Monocyte% 8.6 % (0-10); NRBC Flagged by Analyzer 0 % (0-5); Neutrophil # 7.15 X10^3/uL (2.7-7.7); Neutrophil % 70.1 % (47-70); Platelet Count 370 K/mm3 (150-450); RBC Distribution Width SD 40.8 fl (35.1-43.9); Red Blood Count 5.06 M/mm3 (4.2-5.4); White Blood Count 10.2 K/mm3 (4.4-11.0)
[2023-04-24 22:38] LABS: Color, Urine Yellow (Yellow); Glucose, Dipstick Normal (Normal); Ketone-Dipstick Negative (Negative); Leukocyte Esterase-Dipstick 100 /ul (Negative); Mucous, Urine 0 SEEN /hpf (<or=2+); Nitrite-Dipstick Negative (Negative); Occult Blood-Urine Negative /ul (Negative); Protein-Dipstick Negative (Negative); Red Blood Cells-Urine 0 SEEN /hpf (0-5); Specific Gravity, Urine 1.015 (1.002-1.030); Urine Bilirubin Dipstick Negative (Negative); Urine Clarity Clear (Clear); Urine Urobilinogen Normal (Normal)
[2023-04-24 22:46] LABS: Bacteria RARE /hpf (None Seen); Squamous Epithelial Cells - UA 0-5 SEEN /hpf (5-10); White Blood Cells 5-10 SEEN /hpf (0-5)
[2023-04-24 22:48] LABS: ALB/GLOB Ratio 0.8 RATIO (0.9-2.4); AST(SGOT) 18 U/L (15-37); Alanine Aminotransfer ALT/SGPT 17 U/L (13-56); Albumin, Serum 3.3 g/dL (3.2-5.0); Alkaline Phosphatase 88 U/L (45-117); Anion Gap 5 (5-15); BUN 18 mg/dL (7-18); BUN/Creat Ratio 18.7 RATIO (10-20); Calcium,Total 9.7 mg/dL (8.5-10.1); Chloride 107 mmol/L (98-107); Creatinine, Serum 0.96 mg/dL (0.55-1.02); EST Glomerular Filtration Rate 63 mL/min (>60); Est Glom Filt Rate - Afr Amer 77 mL/min (>60); Estimated Creatinine Clearance 49.38 ml/min; Globulin 4.2 g/dL (2.2-4.2); Glucose 94 mg/dL (74-106); Potassium 3.6 mmol/L (3.5-5.1); Protein, Total 7.5 g/dL (6.4-8.2); Sodium Level 139 mmol/L (136-145)
[2023-04-24 22:58] LABS: Hemoglobin A1c 5.5 % (3.8-5.6)
[2023-04-24 23:32] VITALS: BP 159/94; PULSE 65; RESP 18; O2SAT 100
== END 2023-04-25 01:27 | disposition home or self-care (01) ==
PROVIDERS: Emergency Provider Emergency Medicine; PCP Student in an Organized Health Care Education/Training Program; Visit Provider Emergency Medicine
DX: K52.9 Noninfective gastroenteritis and colitis, unspecified (principal); E86.0 Dehydration; I10 Essential (primary) hypertension; Z79.899 Other long term (current) drug therapy; E03.9 Hypothyroidism, unspecified; Z90.710 Acquired absence of both cervix and uterus; Z90.49 Acquired absence of other specified parts of digestive tract
CPT/HCPCS: 80053; 81001; 83036; 85025; 96361; 96374; 99283; J7030; J2405